=== PATIENT | female | born 1945 | race Caucasian/White ===

== ENCOUNTER 2017-06-04 16:37 | Emergency (ER) | payer OTHER, BC, MEDICARE ==
[2017-06-04 16:53] VITALS: BP 134/94; PULSE 89; TEMP 98.2; BMI 25.5
[2017-06-04] MEDS ORDERED: RABIES VACCINE (PCEC)/PF 2.5 UNIT/VIAL IM ONE (17:21)
[2017-06-04] MEDS ORDERED: RABIES IMMUNE GLOBULIN 300 UNITS/2 ML VIAL IM ONE (17:21)
[2017-06-04] MEDS ORDERED: RABIES IMMUNE GLOBULIN 300 UNITS/2 ML VIAL ONE (17:24)
[2017-06-04] MEDS ORDERED: DIPHTH,PERTUSS(ACELL),TET 0.5 ML DISP.SYRIN IM ONE (17:25)
--- NOTE | 2017-06-04 17:47 | PDOC ---
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 The pt reports that she did not see the bat after that. She denies having any bites or seeing any droppings. Pt does not recall when her last tetanus was. The patient denies having any injuries or symptoms at this time. <Josy Askew - Last Filed: 06/04/17 19:45> - General Chief Complaint: Revisit,Rabies Injection Stated Complaint: POSSIBLE EXPOSURE TO A BAT IN HER HOME OFFICE Time Seen by Provider: 06/04/17 16:53 Past History - Past Medical History COPD: No GI Disorders: Yes (ACID REFLUX, GALLSTONES) Other medical history: VERTIGO - Surgical History Cholecystectomy: Yes - Immunization History Immunization Up to Date: No - Suicide/Smoking/Psychosocial Hx Smoking History: Never smoked Have you smoked in the past 12 months: No Number of Cigarettes Smoked Daily: 0 Information on smoking cessation initiated: No Hx Alcohol Use: No Drug/Substance Use Hx: No Substance Use Type: None <Rosemary Watson - Last Filed: 06/04/17 17:21> <Josy Askew - Last Filed: 06/04/17 19:45> - Past Medical History Allergies/Adverse Reactions: Allergies Allergy/AdvReac Type Severity Reaction Status Date / Time ciprofloxacin [From Cipro] Allergy Severe Difficulty Verified 06/04/17 16:39 Breathing ciprofloxacin HCl Allergy Severe Difficulty Verified 06/04/17 16:40 [From Cipro] Breathing codeine Allergy Severe Difficulty Verified 06/04/17 16:40 Breathing metronidazole [From Flagyl] Allergy Severe Difficulty Verified 06/04/17 16:40 Breathing Sulfa (Sulfonamide Allergy Severe Difficulty Verified 06/04/17 16:40 Antibiotics) Breathing sulfamethoxazole Allergy Severe Difficulty Verified 06/04/17 16:41 [From Septra] Breathing trimethoprim [From Septra] Allergy Severe Difficulty Verified 06/04/17 16:41 Breathing Home Medications: Ambulatory Orders Esomeprazole Magnesium [Nexium 24Hr] 40 mg PO DAILY 01/18/16 Ibuprofen [Motrin -] 600 mg PO TID PRN #12 tablet 03/17/16 Review of Systems - Review of Systems Able to Perform ROS?: Yes Constitutional: No: Symptoms Reported, See HPI, Chills, Diaphoresis, Fever, Loss of Appetite, Malaise, Night Sweats, Weakness, Weight Stable, Unintentional Wgt. Loss, Unexplained wgt Loss, Other HEENTM: No: Symptoms Reported, See HPI, Eye Pain, Blurred Vision, Tearing, Recent change in vision, Double Vision, Cataracts, Ear Pain, Ocular Prothesis, Ear Discharge, Nose Pain, Nose Congestion, Tinnitus, Nose Bleeding, Hearing Loss , Throat Pain, Throat Swelling, Mouth Pain, Dental Problems, Difficulty Swallowing, Mouth Swelling, Other Respiratory: No: Symptoms reported, See HPI, Cough, Orthopnea, Shortness of Breath, SOB with Exertion, SOB at Rest, Stridor, Wheezing, Productive cough, Hemoptysis, Other Cardiac (ROS): No: Symptoms Reported, See HPI, Chest Pain, Edema, Irregular Heart Rate, Lightheadedness, Palpitations, Syncope, Chest Tightness, Other ABD/GI: No: Symptoms Reported, See HPI, Abdominal Distended, Abd. Pain w/ defecation, Blood Streaked Bowels, Constipated, Diarrhea, Difficulty Swallowing , Nausea, Poor Appetite, Poor Fluid Intake, Rectal Bleeding, Vomiting, Indigestion, Abdominal cramping, Tarry Stools, Other : No: Symptoms Reported, See HPI, Burning, Dysuria, Discharge, Frequency, Flank Pain, Hematuria, Incontinence, Pain, Urgency, Testicular Mass, Testicular Swelling, Lesions, Testicular Pain, Other Musculoskeletal: No: Symptoms Reported, See HPI, Back Pain, Gout, Joint Pain, Joint Swelling, Muscle Pain, Muscle Weakness, Neck Pain, Joint Stiffness, Other Integumentary: No: Symptoms Reported, See HPI, Bruising, Change in Color, Change in Hair/Nails, Dryness, Erythema, Flushing, Lesions, Lumps, Pallor, Pruritus, Rash, Sweating, Other Neurological: No: Symptoms reported, See HPI, Headache, Numbness, Paresthesia, Pre-Existing Deficit, Seizure, Tingling, Tremors, Weakness, Unsteady Gait, Ataxia, Dizziness, Other <Josy Askew - Last Filed: 06/04/17 19:45> *Physical Exam - Vital Signs Last Vital Signs Temp Pulse Resp BP Pulse Ox 98.2 F 89 16 134/94 100 06/04/17 16:39 06/04/17 16:39 06/04/17 16:39 06/04/17 16:39 06/04/17 16:39 <Rosemary Watson S - Last Filed: 06/04/17 17:21> - Vital Signs Last Vital Signs Temp Pulse Resp BP Pulse Ox 98.2 F 89 16 134/94 100 06/04/17 16:39 06/04/17 16:39 06/04/17 16:39 06/04/17 16:39 06/04/17 16:39 - Physical Exam General Appearance: Yes: Nourished, Appropriately Dressed HEENT: positive: Normal ENT Inspection Respiratory/Chest: positive: Lungs Clear, Normal Breath Sounds Cardiovascular: positive: Regular Rhythm, Regular Rate Gastrointestinal/Abdominal: positive: Normal Bowel Sounds, Soft Musculoskeletal: positive: Normal Inspection Extremity: positive: Normal Inspection Integumentary: positive: Normal Color, Dry, Warm Neurologic: positive: Fully Oriented, Alert <Josy Askew - Last Filed: 06/04/17 19:45> ED Treatment Course - Medications Given in the ED: ED Medications Discontinued Medications Generic Name Dose Route Start Last Admin Trade Name Freq PRN Reason Stop Dose Admin Diphtheria/Tetanus/Acell Pertussis 0.5 ml 06/04/17 17:25 06/04/17 17:57 Boostrix - IM 06/04/17 17:26 0.5 ml .ONCE ONE Administration Rabies Immune Globulin 7.8 ml 06/04/17 17:21 06/04/17 17:51 Hyperrab S/D - 0.1333 ml/kg (7.8 ml) 06/04/17 17:22 7.8 ml IM Administration ONCE ONE Protocol Rabies Vaccine 2.5 unit 06/04/17 17:21 06/04/17 17:48 Rabavert Rabies Vaccine IM 06/04/17 17:22 2.5 unit .ONCE ONE Administration <Josy Askew - Last Filed: 06/04/17 19:45> *DC/Admit/Observation/Transfer - Discharge Dispostion Admit: No <Rosemary Watson - Last Filed: 06/04/17 17:21> - Attestations Scribe Attestion: 06/04/17 18:02 Documentation prepared by Josy Askew, acting as senior medical writer for Rosemary Watosn MD. <Josy Askew - Last Filed: 06/04/17 19:45> Diagnosis at time of Disposition: Need for post exposure prophylaxis for rabies, Vaccine for diphtheria-tetanus- pertussis, combined - Discharge Dispostion Disposition: HOME Condition at time of disposition: Stable - Patient Instructions Printed Discharge Instructions: DI for Rabies Vaccine Additional Instructions: Follow up dates May: , , , June 12 Return to ER for the above booster daes
== END 2017-06-04 18:00 | disposition home or self-care (01) ==
LOC: FER 16:37
PROC: 3E0234Z Introduction of Serum, Toxoid and Vaccine into Muscle, Percutaneous Approach (ICD-10-PCS; principal; 2017-06-04)
DX: Z23 Encounter for immunization (principal); Z20.3 Contact with and (suspected) exposure to rabies; K58.9 Irritable bowel syndrome, unspecified; K21.9 Gastro-esophageal reflux disease without esophagitis; E07.9 Disorder of thyroid, unspecified; R42 Dizziness and giddiness
CPT/HCPCS: 90375; 90471; 90675; 90715; 99281-25

== ENCOUNTER 2017-06-11 12:30 | Emergency (ER) | payer OTHER, BC, MEDICARE ==
[2017-06-11] MEDS ORDERED: RABIES VACCINE (PCEC)/PF 2.5 UNIT/VIAL IM ONE (12:40)
--- NOTE | 2017-06-11 12:40 | PDOC ---
History of Present Illness - General Chief Complaint: Revisit,Rabies Injection Stated Complaint: RABIES VACCINE Time Seen by Provider: 06/11/17 12:39 History Source: Patient Exam Limitations: No Limitations - History of Present Illness Initial Comments: 06/11/17 13:08 72y F hx of GERD, presents for her 3rd rabies vaccine s/p exposure to a bat 1 week ago. pt also has complaints of increased urinary frequency/urgency and minimal dysuria. deneis any fever/chills, back pain. pt denies any dry mouth/ excisive thrist Past History - Past Medical History Allergies/Adverse Reactions: Allergies Allergy/AdvReac Type Severity Reaction Status Date / Time ciprofloxacin [From Cipro] Allergy Severe Difficulty Verified 06/11/17 12:33 Breathing ciprofloxacin HCl Allergy Severe Difficulty Verified 06/11/17 12:33 [From Cipro] Breathing codeine Allergy Severe Difficulty Verified 06/11/17 12:33 Breathing metronidazole [From Flagyl] Allergy Severe Difficulty Verified 06/11/17 12:33 Breathing Sulfa (Sulfonamide Allergy Severe Difficulty Verified 06/11/17 12:33 Antibiotics) Breathing sulfamethoxazole Allergy Severe Difficulty Verified 06/11/17 12:33 [From Septra] Breathing trimethoprim [From Septra] Allergy Severe Difficulty Verified 06/11/17 12:33 Breathing Home Medications: Ambulatory Orders Esomeprazole Magnesium [Nexium 24Hr] 40 mg PO DAILY 01/18/16 Ibuprofen [Motrin -] 600 mg PO TID PRN #12 tablet 03/17/16 Cephalexin Monohydrate [Keflex -] 500 mg PO Q6H #20 capsule 06/11/17 COPD: No DVT: No GI Disorders: Yes (ACID REFLUX, GALLSTONES) - Surgical History Cholecystectomy: Yes - Immunization History Immunization Up to Date: No - Suicide/Smoking/Psychosocial Hx Smoking History: Never smoked Have you smoked in the past 12 months: No Number of Cigarettes Smoked Daily: 0 Hx Alcohol Use: No Drug/Substance Use Hx: No Substance Use Type: None Review of Systems - Review of Systems Able to Perform ROS?: Yes Comments:: 06/11/17 13:18 Constitutional - no reported Fever, Chills, HEENT: no reported vision changes, sore throat, excessive thirst : + frequency no reported dysuria, discharge Musculskelatal - no reported back pain, joint swelling neurological: no reported headache, numbness, focal weakness, tingling, ataxia, *Physical Exam - Physical Exam Comments: 06/11/17 13:18 GENERAL: The patient is awake, alert, and fully oriented, Nontoxic - in no acute distress. ABDOMEN: Soft, nontender, normoactive bowel sounds. No guarding, no rebound. . No CVA tenderness EXTREMITIES: Normal range of motion, no edema. No clubbing or cyanosis. No cords, erythema, or tenderness. NEUROLOGICAL: No facial assymetry, Normal speech, moving all 4 extremities spontaneously SKIN: Warm, Dry, normal turgor, Medical Decision Making - Medical Decision Making 06/11/17 13:19 will give 3rd rabies vaccine will ck UA to r/o UTI will have pt return in 7 days for 4th and final rabies vaccine *DC/Admit/Observation/Transfer Diagnosis at time of Disposition: Need for post exposure prophylaxis for rabies Urinary tract infection Qualifiers: Urinary tract infection type: acute cystitis Hematuria presence: with hematuria Qualified Code(s): N30.01 - Acute cystitis with hematuria - Discharge Dispostion Disposition: HOME Condition at time of disposition: Improved Admit: No - Prescriptions Prescriptions: Cephalexin Monohydrate [Keflex -] 500 mg PO Q6H #20 capsule - Referrals Referrals: Bart Morrison MD [Staff Physician] - - Patient Instructions Printed Discharge Instructions: DI for Rabies Vaccine Additional Instructions: Return in 7 days for your last rabies vaccine Print Language: FRENCH - Post Discharge Activity
[2017-06-11 12:43] VITALS: BP 118/82; PULSE 80; TEMP 98; BMI 25.2
[2017-06-11 13:48] LABS: URINE APPEARANCE Clear; URINE BILIRUBIN Negative (NEGATIVE); URINE GLUCOSE (UA) Negative (NEGATIVE); URINE KETONE Negative (NEGATIVE); URINE NITRITE Negative (NEGATIVE); URINE PROTEIN Negative (NEGATIVE); URINE UROBILINOGEN 0.2 (0.2-1.0)
[2017-06-11 13:50] LABS: URINE BACTERIA MODERATE /hpf (NEGATIVE); URINE BLOOD Trace-intact (NEGATIVE); URINE COLOR YELLOW; URINE LEUK ESTERASE 1+ (NEGATIVE)
== END 2017-06-11 14:14 | disposition home or self-care (01) ==
LOC: FER 12:30
PROC: 3E0234Z Introduction of Serum, Toxoid and Vaccine into Muscle, Percutaneous Approach (ICD-10-PCS; principal; 2017-06-11)
DX: Z23 Encounter for immunization (principal); Z20.3 Contact with and (suspected) exposure to rabies; R35.0 Frequency of micturition; N30.01 Acute cystitis with hematuria; K21.9 Gastro-esophageal reflux disease without esophagitis; Z88.2 Allergy status to sulfonamides; Z88.5 Allergy status to narcotic agent; Z88.1 Allergy status to other antibiotic agents; Z88.8 Allergy status to other drugs, medicaments and biological substances; Z87.19 Personal history of other diseases of the digestive system
CPT/HCPCS: 81003; 81015; 90675; 99281-25

== ENCOUNTER 2017-06-18 12:21 | Emergency (ER) | payer OTHER, BC, MEDICARE ==
[2017-06-18 12:32] VITALS: BP 136/89; PULSE 81; TEMP 98; BMI 25.0
[2017-06-18] MEDS ORDERED: RABIES VACCINE (PCEC)/PF 2.5 UNIT/VIAL IM ONE (12:37)
--- NOTE | 2017-06-18 13:10 | PDOC ---
History of Present Illness - General Chief Complaint: Lightheaded Stated Complaint: dizziness,elevated BP,rabies vaccine 4 th dose. Time Seen by Provider: 06/18/17 12:35 History Source: Patient Exam Limitations: No Limitations - History of Present Illness Initial Comments: 06/18/17 13:05 9-year-old female here today for her fourth rabies vaccination. Patient states she awoke with a bat in the room which prompt series. Also complains of feeling lightheaded recently. States she has been taking a lot of ibuprofen for generalized body aches as well as bilateral wrist pain. So she is a history of vertigo but denies any recent vertigo had noted that her blood pressure was mildly elevated the last 2 days. 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 Orourke. No fevers chills nausea vomiting or other complaints Past History - Past Medical History Allergies/Adverse Reactions: Allergies Allergy/AdvReac Type Severity Reaction Status Date / Time ciprofloxacin [From Cipro] Allergy Severe Difficulty Verified 06/18/17 12:29 Breathing ciprofloxacin HCl Allergy Severe Difficulty Verified 06/18/17 12:29 [From Cipro] Breathing codeine Allergy Severe Difficulty Verified 06/18/17 12:29 Breathing metronidazole [From Flagyl] Allergy Severe Difficulty Verified 06/18/17 12:29 Breathing Sulfa (Sulfonamide Allergy Severe Difficulty Verified 06/18/17 12:29 Antibiotics) Breathing sulfamethoxazole Allergy Severe Difficulty Verified 06/18/17 12:29 [From Septra] Breathing trimethoprim [From Septra] Allergy Severe Difficulty Verified 06/18/17 12:29 Breathing Home Medications: Ambulatory Orders Esomeprazole Magnesium [Nexium 24Hr] 40 mg PO DAILY 01/18/16 Ibuprofen [Motrin -] 600 mg PO TID PRN #12 tablet 03/17/16 Cephalexin Monohydrate [Keflex -] 500 mg PO Q6H #20 capsule 06/11/17 COPD: No DVT: No GI Disorders: Yes (ACID REFLUX, GALLSTONES) - Surgical History Cholecystectomy: Yes - Immunization History Immunization Up to Date: No - Suicide/Smoking/Psychosocial Hx Smoking History: Never smoked Have you smoked in the past 12 months: No Number of Cigarettes Smoked Daily: 0 Hx Alcohol Use: No Drug/Substance Use Hx: No Substance Use Type: None Review of Systems - Review of Systems Constitutional: No: Chills, Diaphoresis, Fever Respiratory: No: Cough, Orthopnea Cardiac (ROS): No: Chest Pain, Edema ABD/GI: No: Abdominal Distended Musculoskeletal: Yes: Other (wrist pain). No: Back Pain, Gout Integumentary: No: Bruising, Change in Color Neurological: Yes: Other (lightheaded). No: Headache All Other Systems: Reviewed and Negative *Physical Exam - Vital Signs Last Vital Signs Temp Pulse Resp BP Pulse Ox 98 F 81 18 136/89 99 06/18/17 12:22 06/18/17 12:22 06/18/17 12:22 06/18/17 12:22 06/18/17 12:22 - Physical Exam Comments: 06/18/17 13:07 Awake alert no acute distress. Lungs are clear bilaterally. Heart is regular without any murmurs rubs or gallops. Abdomen is soft and nontender. Extremities warm well perfused no edema. Neuro alert and oriented 3. Skin warm dry no rash Medical Decision Making - Medical Decision Making 06/18/17 13:08 72-year-old female with a history of recent bat exposure on rabies vaccination here for fourth shot. Also complaining of feeling mildly lightheaded with an elevated blood pressure of 135/60. No other current complaints patient is very anxious during her discussion. Plan EKG, will repeat patient's blood pressure. Will likely require outpatient follow-up with her primary doctor or her on air announcer. Plan to give her her fourth rabies vaccination and discharge home 06/18/17 13:09 *DC/Admit/Observation/Transfer Diagnosis at time of Disposition: Exposure to rabies - Discharge Dispostion Disposition: HOME Condition at time of disposition: Improved Admit: No - Referrals - Patient Instructions Printed Discharge Instructions: Rabies Vaccine Additional Instructions: He should follow-up with her primary care doctor to discuss her blood pressure. Or your on air announcer. Return for any chest pain, shortness of breath, or any concerns. Your giving her fourth rabies vaccination today.According to the most recent your guidelines you do not need any further vaccination for rabies as 4 doses should be sufficient - Post Discharge Activity
--- NOTE | 2017-06-19 14:02 | EKG ---
Test Reason : Blood Pressure : / mmHG Vent. Rate : 074 BPM Atrial Rate : 074 BPM P-R Int : 154 ms QRS Dur : 092 ms QT Int : 376 ms P-R-T Axes : 044 004 032 degrees QTc Int : 417 ms NORMAL SINUS RHYTHM NORMAL ECG NO PREVIOUS ECGS AVAILABLE Confirmed by OSBALDO HUTSON MD ([id number]) on 06/19/2017 2:02:27 PM Referred By: RADHA Confirmed By:OSBALDO HUTSON MD
== END 2017-06-18 13:23 | disposition home or self-care (01) ==
LOC: FER 12:21
PROC: 3E0234Z Introduction of Serum, Toxoid and Vaccine into Muscle, Percutaneous Approach (ICD-10-PCS; principal; 2017-06-18)
DX: Z20.3 Contact with and (suspected) exposure to rabies (principal); K21.9 Gastro-esophageal reflux disease without esophagitis
CPT/HCPCS: 90471; 90675; 93005; 99282-25

== ENCOUNTER 2017-07-19 06:24 | Emergency (ER) | payer OTHER, BC, MEDICARE ==
[2017-07-19 06:50] VITALS: BP 127/87; PULSE 86; TEMP 97.9; BMI 24.4
--- NOTE | 2017-07-19 07:14 | PDOC ---
History of Present Illness - General Chief Complaint: Pain, Acute Stated Complaint: TRIGEMINAL PAIN Time Seen by Provider: 07/19/17 07:13 - History of Present Illness Initial Comments: 07/19/17 07:32 Chief complaint: Facial pain History of present illness: Patient complains of an exacerbation of her trigeminal neuralgia with left facial pain, sharp, lancinating, since last night. Accompanying nausea, no vomiting. These are her usual symptoms. She had surgery 3 years ago for removal of a "cyst" in her jaw, which is thought to be responsible for her chronic pain. Pain management physician was consulted, and was treating the patient, but she is no longer under his care. Under regular care by a neurologist. Review of systems: No fever/chills, URI symptoms, sore throat, cough, chest pain , shortness of breath, abdominal pain, vomiting, diarrhea, urinary tract symptoms, vaginal bleeding or discharge, visual or focal neurologic symptoms other than as noted above, no unsteadiness of gait. Past medical history: As noted in the medical record. Stable Family/social history reviewed and noncontributory Physical exam: Alert and oriented 3, well-developed well-nourished, no acute distress, cheerful and cooperative. The patient does not appear to be in pain, is lying comfortably, and there are no wincing or sudden movements of the head or neck consistent with intermittent pain Afebrile, vital signs stable PERRLA, fundi benign, ENT clear. There is tenderness over the left cheek, mild, but no erythema, induration, swelling, or deformity. Neck supple without bruit mass or nodes Chest clear CV regular without murmur or gallop Abdomen benign Neurological C2 to 12 intact. No focal sensory or motor deficits. Gait stable and unimpaired Impression: Exacerbation of chronic trigeminal neuralgia, usual symptoms, response to Toradol and Zofran. Plan: Initial treatment and observation. Follow-up with neurologist. Past History - Past Medical History Allergies/Adverse Reactions: Allergies Allergy/AdvReac Type Severity Reaction Status Date / Time ciprofloxacin [From Cipro] Allergy Severe Difficulty Verified 06/18/17 12:29 Breathing ciprofloxacin HCl Allergy Severe Difficulty Verified 06/18/17 12:29 [From Cipro] Breathing codeine Allergy Severe Difficulty Verified 06/18/17 12:29 Breathing metronidazole [From Flagyl] Allergy Severe Difficulty Verified 06/18/17 12:29 Breathing Sulfa (Sulfonamide Allergy Severe Difficulty Verified 06/18/17 12:29 Antibiotics) Breathing sulfamethoxazole Allergy Severe Difficulty Verified 06/18/17 12:29 [From Marra] Breathing trimethoprim [From Marra] Allergy Severe Difficulty Verified 06/18/17 12:29 Breathing Home Medications: Ambulatory Orders Esomeprazole Magnesium [Nexium 24Hr] 40 mg PO DAILY 01/18/16 Ondansetron [Zofran Odt -] 4 mg SL TID PRN #12 od.tablet 07/19/17 COPD: No DVT: No GI Disorders: Yes (ACID REFLUX, GALLSTONES) Other medical history: TRIGEMINAL NEURALGIA - Surgical History Cholecystectomy: Yes - Immunization History Immunization Up to Date: No - Suicide/Smoking/Psychosocial Hx Smoking History: Never smoked Have you smoked in the past 12 months: No Number of Cigarettes Smoked Daily: 0 Hx Alcohol Use: No Drug/Substance Use Hx: No Substance Use Type: None *Physical Exam - Vital Signs Last Vital Signs Temp Pulse Resp BP Pulse Ox 97.9 F 86 16 127/87 100 07/19/17 06:44 07/19/17 06:44 07/19/17 06:44 07/19/17 06:44 07/19/17 06:44 Medical Decision Making - Medical Decision Making 07/19/17 08:04 Patient's neurological status remained stable. Pain resolving. Nausea resolved. Fully ambulatory and in no distress pain or otherwise upon discharge to follow- up as needed. *DC/Admit/Observation/Transfer Diagnosis at time of Disposition: Trigeminal neuralgia of left side of face - Discharge Dispostion Disposition: HOME Condition at time of disposition: Improved Admit: No - Prescriptions Prescriptions: Ondansetron [Zofran Odt -] 4 mg SL TID PRN #12 od.tablet PRN Reason: Nausea And/Or Vomiting - Referrals Referrals: Marcell Avila [Primary Care Provider] - - Patient Instructions Printed Discharge Instructions: DI for Trigeminal Neuralgia - Post Discharge Activity
[2017-07-19] MEDS ORDERED: KETOROLAC TROMETHAMINE 60 MG/2 ML VIAL IM ONE (07:31)
[2017-07-19] MEDS ORDERED: ONDANSETRON *ODT* 4 MG TABLET SL ONE ×2 (07:31→07:32)
[2017-07-19] MEDS ORDERED: KETOROLAC TROMETHAMINE 30 MG/1 ML VIAL ONE (07:33)
[2017-07-19] MEDS ORDERED: ONDANSETRON *ODT* 4 MG TABLET ONE (07:33)
== END 2017-07-19 08:10 | disposition home or self-care (01) ==
LOC: FER 06:24
PROC: 3E0233Z Introduction of Anti-inflammatory into Muscle, Percutaneous Approach (ICD-10-PCS; principal; 2017-07-19)
DX: G50.0 Trigeminal neuralgia (principal); K21.9 Gastro-esophageal reflux disease without esophagitis
CPT/HCPCS: 96372; 99281-25

== ENCOUNTER 2017-09-18 12:20 | Emergency (ER) | payer OTHER, BC, MEDICARE ==
[2017-09-18 12:24] VITALS: BMI 22.4
--- NOTE | 2017-09-18 12:31 | PDOC ---
History of Present Illness - General Chief Complaint: Migraine Headache Stated Complaint: MIGRIANE Time Seen by Provider: 09/18/17 12:23 - History of Present Illness Initial Comments: 09/18/17 12:42 Chief complaint: Trigeminal neuralgia History of present illness: Patient states that she has trigeminal neuralgia, which flared up after dental procedure recently. She was given Toradol yesterday at an urgent care center, but is afraid of taking more Toradol. Her neurologist is moved to [facility], and she is in the process of finding a new neurologist. Most recent CT and MRI was one year ago, showing no abnormalities. Review of systems: No fever/chills, headache, sore throat, URI symptoms, chest pain, shortness of breath, abdominal pain, nausea, vomiting, diarrhea, visual or focal neurologic symptoms, unsteadiness of gait. No hearing problems including decreased hearing, tinnitus, or ear pain. Remainder systems reviewed and found to be negative Past medical history: Patient described a "cyst" in her jaw in 2012, which was surgically removed, but which resulted in her trigeminal ALLERGY symptoms. She has been intolerant to all medications prescribed by [facility] including gabapentin, Lyrica, and Tegretol. Social/family history reviewed and noncontributory Physical exam: Alert oriented 3 well-developed well-nourished no acute distress cheerful and cooperative Afebrile, vital signs normal HEENT clear PERRLA, fundi benign. Neurological C2 to 12 intact. No focal sensory or motor deficits. Strength full and symmetric. Gait stable and unimpaired Neck supple without bruit mass or nodes. No tenderness or deformity. Full range of motion without pain Chest clear CV regular without murmur rub or gallop Abdomen benign Extremities no CCE Skin clear, no rash, adequate turgor and wet mucous membranes Impression: Recurrent trigeminal neuralgia. Intolerant to maintenance medications. No neurologic deficits. Plan: Analgesics, referral to new neurologist SERGE for further evaluation, treatment, and medication recommendations. Rest and relaxation techniques. Avoid stress and other triggering factors. Past History - Past Medical History Allergies/Adverse Reactions: Allergies Allergy/AdvReac Type Severity Reaction Status Date / Time ciprofloxacin [From Cipro] Allergy Severe Difficulty Verified 09/18/17 12:21 Breathing ciprofloxacin HCl Allergy Severe Difficulty Verified 09/18/17 12:21 [From Cipro] Breathing codeine Allergy Severe Difficulty Verified 09/18/17 12:21 Breathing metronidazole [From Flagyl] Allergy Severe Difficulty Verified 09/18/17 12:21 Breathing Sulfa (Sulfonamide Allergy Severe Difficulty Verified 09/18/17 12:21 Antibiotics) Breathing sulfamethoxazole Allergy Severe Difficulty Verified 09/18/17 12:21 [From Septra] Breathing trimethoprim [From Septra] Allergy Severe Difficulty Verified 09/18/17 12:21 Breathing Home Medications: Ambulatory Orders Esomeprazole Magnesium [Nexium 24Hr] 40 mg PO DAILY 01/18/16 COPD: No DVT: No GI Disorders: Yes (ACID REFLUX, GALLSTONES) Other medical history: MIGRIANES - Surgical History Cholecystectomy: Yes - Immunization History Immunization Up to Date: No - Suicide/Smoking/Psychosocial Hx Smoking History: Never smoked Have you smoked in the past 12 months: No Number of Cigarettes Smoked Daily: 0 Hx Alcohol Use: No Drug/Substance Use Hx: No Substance Use Type: None *Physical Exam - Vital Signs Last Vital Signs Temp Pulse Resp BP Pulse Ox 0/0 09/18/17 12:21 Medical Decision Making - Medical Decision Making 09/18/17 13:54 Improved. No residual severe pain. Will continue Motrin at home and follow-up with recommended neurologist as directed. Fully ambulatory and in no distress upon discharge with *DC/Admit/Observation/Transfer Diagnosis at time of Disposition: Trigeminal neuralgia of left side of face - Discharge Dispostion Disposition: HOME Condition at time of disposition: Improved Admit: No - Referrals Referrals: Fredy Zimmerman DO [Staff Physician] - 1 week - Patient Instructions Printed Discharge Instructions: DI for Trigeminal Neuralgia - Post Discharge Activity
[2017-09-18] MEDS ORDERED: ACETAMINOPHEN 1000 MG/100 ML VIAL (NON FORMULARY) IVPB ONE (12:33)
[2017-09-18 12:37] VITALS: BP 125/74; PULSE 88; TEMP 98.5
[2017-09-18] MEDS ORDERED: ACETAMINOPHEN INJECTION 100 ML IVPB ONE (12:38)
[2017-09-18] MEDS ORDERED: ONDANSETRON 4 MG/2 ML VIAL ONE (13:19)
[2017-09-18] MEDS ORDERED: ONDANSETRON 4 MG/2 ML VIAL IVPB ONE (13:35)
== END 2017-09-18 14:00 | disposition home or self-care (01) ==
LOC: FER 12:20
PROC: 3E033NZ Introduction of Analgesics, Hypnotics, Sedatives into Peripheral Vein, Percutaneous Approach (ICD-10-PCS; principal; 2017-09-18)
PROC: 3E033GC Introduction of Other Therapeutic Substance into Peripheral Vein, Percutaneous Approach (ICD-10-PCS; 2017-09-18)
DX: G50.0 Trigeminal neuralgia (principal); K21.9 Gastro-esophageal reflux disease without esophagitis
CPT/HCPCS: 96374; 96375; 99282-25

== ENCOUNTER 2018-03-17 12:07 | Emergency (ER) | payer OTHER, BC, MEDICARE ==
--- NOTE | 2018-03-17 12:28 | PDOC ---
Attending Attestation - Resident Resident Name: Huong Muro - ED Attending Attestation I have performed the following: I have examined & evaluated the patient, The case was reviewed & discussed with the resident, I agree w/resident's findings & plan, Exceptions are as noted
[2018-03-17 12:37] VITALS: BP 124/82; PULSE 82; TEMP 98.2; BMI 23.1
[2018-03-17] MEDS ORDERED: KETOROLAC TROMETHAMINE 60 MG/2 ML VIAL IM ONE (13:20)
[2018-03-17] MEDS ORDERED: traMADol HCL 50 MG TABLET PO ONE (13:21)
[2018-03-17] MEDS ORDERED: ONDANSETRON *ODT* 4 MG TABLET SL ONE (13:21)
--- NOTE | 2018-03-17 13:22 | PDOC ---
History of Present Illness - General Chief Complaint: Pain Stated Complaint: LEFT FACE PAIN Time Seen by Provider: 03/17/18 13:20 - History of Present Illness Initial Comments: 03/17/18 15:06 Chief complaint: Flareup of trigeminal neuralgia History of present illness: Patient with frequent flareups of trigeminal neuralgia, unresponsive to medication today. Took ibuprofen at home and received 30 mg of Toradol IM at urgent care before coming to the ER. In the past she has had aggravation of her symptoms, primarily because of increased stress, and has had increased stress due to her work for the last 2 days. Review of systems: Denies fever/chills, URI symptoms, sore throat, cough, chest pain, shortness of breath, abdominal pain, nausea, vomiting, diarrhea, visual or focal neurologic symptoms, unsteadiness of gait Past medical history: Trigeminal neuralgia, irritable bowel, GERD. Undergoing treatment for H. pylori with amoxicillin. ALLERGIC to multiple medications including ciprofloxacin, codeine, metronidazole, sulfonamides, and trimethoprim. Despite being ALLERGIC to codeine, she has taken tramadol in the past with no reaction and it has been effective for pain Social/family history reviewed and noncontributory Physical exam: Alert and oriented well-developed well-nourished no acute distress despite her complaints. Cheerful and cooperative Afebrile, vital signs normal Head atraumatic. PERRLA 4 mm, fundi benign with sharp disc margins and good central venous pulsations. ENT clear. No tick or unusual facial movements Neck supple without bruit mass or nodes Chest clear CV regular without murmur rub or gallop Abdomen benign Neurological C2 to 12 intact. Strength full and symmetric. No focal sensory or motor deficits. Gait stable and unimpaired Impression: Exacerbation of trigeminal neuralgia, anxiety Plan: Symptomatic treatment, reevaluation, and follow-up if improved. Past History - Past Medical History Allergies/Adverse Reactions: Allergies Allergy/AdvReac Type Severity Reaction Status Date / Time ciprofloxacin [From Cipro] Allergy Severe Difficulty Verified 02/02/18 07:11 Breathing ciprofloxacin HCl Allergy Severe Difficulty Verified 02/02/18 07:11 [From Cipro] Breathing codeine Allergy Severe Difficulty Verified 02/02/18 07:11 Breathing metronidazole [From Flagyl] Allergy Severe Difficulty Verified 02/02/18 07:11 Breathing Sulfa (Sulfonamide Allergy Severe Difficulty Verified 02/02/18 07:11 Antibiotics) Breathing sulfamethoxazole Allergy Severe Difficulty Verified 02/02/18 07:11 [From Marra] Breathing trimethoprim [From ] Allergy Severe Difficulty Verified 02/02/18 07:11 Breathing Home Medications: Ambulatory Orders Esomeprazole Magnesium [Nexium 24Hr] 40 mg PO DAILY 01/18/16 Amoxicillin - [Amoxicillin 500mg Capsule -] 1,000 mg PO BID 03/17/18 Bacillus Coagulans/Inulin [Probiotic Formula Capsule] 1 each PO DAILY 03/17/18 Bismuth Subsalicylate [Pepto-Bismol -] 524 mg PO TID 03/17/18 Ibuprofen 400 mg PO TID PRN 03/17/18 Ondansetron [Zofran Odt -] 4 mg SL TID PRN #10 od.tablet 03/17/18 Tramadol HCl 50 mg PO QID PRN #15 tablet MDD 4 03/17/18 COPD: No DVT: No GI Disorders: Yes (ACID REFLUX, GALLSTONES, H. PYLORI) Other medical history: TRIGEMINAL NEURALGIA - Surgical History Cholecystectomy: Yes - Immunization History Immunization Up to Date: No - Suicide/Smoking/Psychosocial Hx Smoking History: Never smoked Have you smoked in the past 12 months: No Number of Cigarettes Smoked Daily: 0 Hx Alcohol Use: No Drug/Substance Use Hx: No Substance Use Type: None *Physical Exam - Vital Signs Last Vital Signs Temp Pulse Resp BP Pulse Ox 98.2 F 82 16 124/82 98 03/17/18 12:08 03/17/18 12:08 03/17/18 12:08 03/17/18 12:08 03/17/18 12:08 Medical Decision Making - Medical Decision Making 03/17/18 15:11 Patient is much improved with recurrent medication. Neurological exam remains intact. Discharged in no significant pain or other distress with to follow-up as needed. *DC/Admit/Observation/Transfer Diagnosis at time of Disposition: Trigeminal neuralgia of left side of face - Discharge Dispostion Disposition: HOME Condition at time of disposition: Improved Decision to Admit order: No - Prescriptions Prescriptions: Ondansetron [Zofran Odt -] 4 mg SL TID PRN #10 od.tablet PRN Reason: Nausea Tramadol HCl 50 mg PO QID PRN #15 tablet MDD 4 PRN Reason: Pain - Referrals Referrals: Marcell Avila [Primary Care Provider] - 2 Days - Patient Instructions Printed Discharge Instructions: DI for Trigeminal Neuralgia - Post Discharge Activity
[2018-03-17] MEDS ORDERED: traMADol HCL 50 MG TABLET ONE (13:24)
[2018-03-17] MEDS ORDERED: KETOROLAC TROMETHAMINE 30 MG/1 ML VIAL ONE (13:24)
[2018-03-17] MEDS ORDERED: ONDANSETRON *ODT* 4 MG TABLET ONE (13:25)
--- NOTE | 2018-03-18 06:35 | PDOC ---
*Physical Exam - Vital Signs Last Vital Signs Temp Pulse Resp BP Pulse Ox 98.2 F 82 16 124/82 98 03/17/18 12:08 03/17/18 12:08 03/17/18 12:08 03/17/18 12:08 03/17/18 12:08 ED Treatment Course - Medications Given in the ED: ED Medications Discontinued Medications Generic Name Dose Route Start Last Admin Trade Name Freq PRN Reason Stop Dose Admin Ketorolac Tromethamine 30 mg 03/17/18 13:20 03/17/18 13:30 Toradol Injection - IM 03/17/18 13:21 30 mg ONCE ONE Administration Ondansetron HCl 4 mg 03/17/18 13:21 03/17/18 13:30 Zofran Odt - SL 03/17/18 13:22 4 mg ONCE ONE Administration Tramadol HCl 50 mg 03/17/18 13:21 03/17/18 13:30 Ultram - PO 03/17/18 13:22 50 mg ONCE ONE Administration Medical Decision Making - Medical Decision Making 03/18/18 06:34 Pt called to request medication for nausea, so I ordered some zofran ODT for her 4mg BID. *DC/Admit/Observation/Transfer Diagnosis at time of Disposition: Trigeminal neuralgia of left side of face - Discharge Dispostion Disposition: HOME Condition at time of disposition: Improved - Prescriptions Prescriptions: Ondansetron [Zofran Odt -] 4 mg SL TID PRN #10 od.tablet PRN Reason: Nausea Ondansetron [Zofran Odt -] 4 mg SL BID #14 od.tablet Tramadol HCl 50 mg PO QID PRN #15 tablet MDD 4 PRN Reason: Pain - Referrals Referrals: Marcell Avila [Primary Care Provider] - 2 Days - Patient Instructions Printed Discharge Instructions: DI for Trigeminal Neuralgia - Post Discharge Activity
== END 2018-03-17 14:48 | disposition home or self-care (01) ==
LOC: FER 12:07
PROC: 3E0233Z Introduction of Anti-inflammatory into Muscle, Percutaneous Approach (ICD-10-PCS; principal; 2018-03-17)
DX: G50.0 Trigeminal neuralgia (principal); K21.9 Gastro-esophageal reflux disease without esophagitis
CPT/HCPCS: 96372; 99281-25; Q0162

== ENCOUNTER 2018-04-29 06:07 | Emergency (ER) | payer OTHER, BC, MEDICARE ==
[2018-04-29 06:17] VITALS: BP 135/87; PULSE 82; TEMP 97.9; BMI 24.4
[2018-04-29] MEDS ORDERED: KETOROLAC TROMETHAMINE 60 MG/2 ML VIAL IM ONE (06:27)
[2018-04-29] MEDS ORDERED: KETOROLAC TROMETHAMINE 60 MG/2 ML VIAL ONE (06:28)
--- NOTE | 2018-04-29 06:33 | PDOC ---
History of Present Illness - General Chief Complaint: Pain, Acute Stated Complaint: FACIAL PAIN Time Seen by Provider: 04/29/18 06:13 - History of Present Illness Initial Comments: 04/29/18 06:33 recurrent post-operative pain usually responds to ketorolac usually gets pain 2x/ month L face Timing/Duration: 4-6 hours Severity: moderate Modifying Factors: worse with: medication Associated Symptoms: denies: fever/chills Past History - Past Medical History Allergies/Adverse Reactions: Allergies Allergy/AdvReac Type Severity Reaction Status Date / Time ciprofloxacin [From Cipro] Allergy Severe Difficulty Verified 02/02/18 07:11 Breathing ciprofloxacin HCl Allergy Severe Difficulty Verified 02/02/18 07:11 [From Cipro] Breathing codeine Allergy Severe Difficulty Verified 02/02/18 07:11 Breathing metronidazole [From Flagyl] Allergy Severe Difficulty Verified 02/02/18 07:11 Breathing Sulfa (Sulfonamide Allergy Severe Difficulty Verified 02/02/18 07:11 Antibiotics) Breathing sulfamethoxazole Allergy Severe Difficulty Verified 02/02/18 07:11 [From Septra] Breathing trimethoprim [From Septra] Allergy Severe Difficulty Verified 02/02/18 07:11 Breathing Home Medications: Ambulatory Orders Esomeprazole Magnesium [Nexium 24Hr] 40 mg PO DAILY 01/18/16 Ibuprofen 400 mg PO TID PRN 03/17/18 COPD: No DVT: No GI Disorders: Yes (ACID REFLUX, GALLSTONES, H. PYLORI) Other medical history: TRIGEMINAL NEURALGIA - Surgical History Cholecystectomy: Yes - Immunization History Immunization Up to Date: No - Suicide/Smoking/Psychosocial Hx Smoking History: Never smoked Have you smoked in the past 12 months: No Number of Cigarettes Smoked Daily: 0 Hx Alcohol Use: No Drug/Substance Use Hx: No Substance Use Type: None Review of Systems - Review of Systems All Other Systems: Reviewed and Negative *Physical Exam - Vital Signs Last Vital Signs Temp Pulse Resp BP Pulse Ox 97.9 F 82 16 135/87 99 04/29/18 06:13 04/29/18 06:13 04/29/18 06:13 04/29/18 06:13 04/29/18 06:13 - Physical Exam General Appearance: Yes: Nourished, Appropriately Dressed HEENT: positive: EOMI, MANA, Normal ENT Inspection, Normal Voice. negative: Scleral Icterus (R), Scleral Icterus (L), Muffled/Hoarse voice, Nasal Congestion , Rhinorrhea, Sinus Tenderness, Lesions, Excessive drooling Neck: negative: Tender Respiratory/Chest: negative: Respiratory Distress Integumentary: positive: Normal Color, Dry, Warm Neurologic: positive: Alert, Other (rabbit mouthing) Medical Decision Making - Medical Decision Making 04/29/18 06:35 chronic recurrent post-operative pain refusing infrorbitla nerve block ketorolac PCP fu *DC/Admit/Observation/Transfer Diagnosis at time of Disposition: Chronic pain disorder - Discharge Dispostion Disposition: HOME Condition at time of disposition: Stable - Referrals - Patient Instructions Additional Instructions: Please followup with your primary care provider - Post Discharge Activity
[2018-04-29] MEDS ORDERED: ONDANSETRON *ODT* 4 MG TABLET ONE (06:50)
[2018-04-29] MEDS ORDERED: ONDANSETRON 4 MG TABLET PO ONE (06:51)
== END 2018-04-29 07:03 | disposition home or self-care (01) ==
LOC: FER 06:07
PROC: 3E0233Z Introduction of Anti-inflammatory into Muscle, Percutaneous Approach (ICD-10-PCS; principal; 2018-04-29)
DX: G89.29 Other chronic pain (principal)
CPT/HCPCS: 96372; 99281-25

== ENCOUNTER 2018-04-29 14:10 | Emergency (ER) | payer OTHER, BC, MEDICARE ==
[2018-04-29 14:27] VITALS: BMI 22.8
[2018-04-29 14:31] VITALS: BP 125/83; PULSE 72; TEMP 98.7
[2018-04-29] MEDS ORDERED: traMADol HCL 50 MG TABLET PO ONE (14:31)
[2018-04-29] MEDS ORDERED: ACETAMINOPHEN 500 MG TABLET (FP) PO ONE (14:32)
--- NOTE | 2018-04-29 14:32 | PDOC ---
History of Present Illness - General Chief Complaint: Pain, Acute Stated Complaint: LEFT FACIAL PAIN Time Seen by Provider: 04/29/18 14:19 - History of Present Illness Initial Comments: 04/29/18 14:32 73-year-old female with a history of trigeminal neuralgia, GERD, IBS presents to the emergency department with pain to the left face. Patient reports this is identical to her previous trigeminal neuralgia flares. Patient was seen here in the emergency department earlier today, given IM Toradol with relief. Since then , patient had a cavity filled at the dentist and states this triggered her trigeminal neuralgia to act up again prompting her to come to the emergency department. She states she feels better since initiation of the pain but is still having frequent lacinating pain down the left side of her face. No other treatments tried. She reports Toradol, tramadol, and Tylenol often work for her pain. Denies any new characteristics of pain. Denies headache, visual changes, speech changes, fevers, chills, nausea, vomiting, focal weakness or numbness in any extremities, chest pain, shortness of breath. Past History - Past Medical History Allergies/Adverse Reactions: Allergies Allergy/AdvReac Type Severity Reaction Status Date / Time ciprofloxacin [From Cipro] Allergy Severe Difficulty Verified 04/29/18 14:29 Breathing ciprofloxacin HCl Allergy Severe Difficulty Verified 04/29/18 14:29 [From Cipro] Breathing codeine Allergy Severe Difficulty Verified 04/29/18 14:29 Breathing metronidazole [From Flagyl] Allergy Severe Difficulty Verified 04/29/18 14:29 Breathing Sulfa (Sulfonamide Allergy Severe Difficulty Verified 04/29/18 14:29 Antibiotics) Breathing sulfamethoxazole Allergy Severe Difficulty Verified 04/29/18 14:29 [From Septra] Breathing trimethoprim [From Septra] Allergy Severe Difficulty Verified 04/29/18 14:29 Breathing Home Medications: Ambulatory Orders Esomeprazole Magnesium [Nexium 24Hr] 40 mg PO DAILY 01/18/16 Ibuprofen 400 mg PO TID PRN 03/17/18 COPD: No DVT: No GI Disorders: Yes (ACID REFLUX, GALLSTONES, H. PYLORI) - Surgical History Cholecystectomy: Yes - Immunization History Immunization Up to Date: No - Suicide/Smoking/Psychosocial Hx Smoking History: Never smoked Have you smoked in the past 12 months: No Number of Cigarettes Smoked Daily: 0 Hx Alcohol Use: No Drug/Substance Use Hx: No Substance Use Type: None Review of Systems - Review of Systems Comments:: 04/29/18 14:35 GENERAL/CONSTITUTIONAL: No fever or chills. No weakness. HEAD, EYES, EARS, NOSE AND THROAT: No change in vision. No ear pain or discharge. No sore throat. +L facial pain GASTROINTESTINAL: No nausea, vomiting, diarrhea or constipation. GENITOURINARY: No dysuria, frequency, or change in urination. CARDIOVASCULAR: No chest pain or shortness of breath. RESPIRATORY: No cough, wheezing, or hemoptysis. MUSCULOSKELETAL: No joint or muscle swelling or pain. No neck or back pain. SKIN: No rash NEUROLOGIC: No headache, vertigo, loss of consciousness, or change in strength/ sensation. ENDOCRINE: No increased thirst. No abnormal weight change. HEMATOLOGIC/LYMPHATIC: No anemia, easy bleeding, or history of blood clots. ALLERGIC/IMMUNOLOGIC: No hives or skin allergy. *Physical Exam - Vital Signs Last Vital Signs Temp Pulse Resp BP Pulse Ox 98.7 F 72 18 125/83 100 04/29/18 14:19 04/29/18 14:19 04/29/18 14:19 04/29/18 14:19 04/29/18 14:19 - Physical Exam Comments: 04/29/18 14:38 GENERAL: Awake, alert, and fully oriented, in no acute distress. Pleasant. EYES: PERRLA, EOMI, sclera anicteric, conjunctiva clear ENT: Hearing grossly normal, nares patent, oropharynx clear without exudates. Moist mucosa NECK: Normal ROM, supple, no lymphadenopathy, JVD, or masses LUNGS: Breath sounds equal, clear to auscultation bilaterally. No wheezes, and no crackles HEART: Regular rate and rhythm, normal S1 and S2, no murmurs, rubs or gallops ABDOMEN: Soft, nontender, normoactive bowel sounds. No guarding, no rebound. No masses EXTREMITIES: Normal range of motion, no edema. No cords, erythema, or tenderness NEUROLOGICAL: Normal speech, cranial nerves intact, negative pronator drift, 5/ 5 strength in all 4 extremities, normal sensation to light touch in all 4 extremities, normal cerebellar exam, normal gait, normal reflexes and tone SKIN: Warm, Dry, normal turgor, no rashes or lesions noted. Medical Decision Making - Medical Decision Making 04/29/18 14:38 73yo F hx trigeminal neuralgia presents to the ED with trigeminal neuralgia flare Got toradol 60mg IM earlier today Will give tramadol 50mg and tylenol 1G and reassess Pt in agreement with plan 04/29/18 14:52 Pt c/o of epigastric burning after her lunch salad had tomatoes in it. No ttp. Ordered maalox, will reassess. 04/29/18 16:09 Pt feeling much better. Still mild facial pain but states "I feel human again" No more abd pain after maalox Requests DC I discussed the physical exam findings, ancillary test results and final diagnoses with the patient. I answered all of the patient's questions. The patient was satisfied with the care received and felt comfortable with the discharge plan and treatment plan. The patient will call their primary care physician within 24 hours to arrange follow-up and will return to the Emergency Department with any new, persistent or worsening symptoms. *DC/Admit/Observation/Transfer Diagnosis at time of Disposition: Trigeminal neuralgia of left side of face - Discharge Dispostion Disposition: HOME Condition at time of disposition: Improved Decision to Admit order: No - Referrals - Patient Instructions Printed Discharge Instructions: DI for Trigeminal Neuralgia Additional Instructions: Follow-up with your primary care doctor within 1 week. Take Motrin 600 mg every 8 hours as needed for pain. If your pain is not well controlled with Motrin, take tramadol. Be careful because tramadol can make you drowsy and dizzy. Return to the emergency department if you have any new, worsening or concerning symptoms. - Post Discharge Activity - Attestations Physician Attestion: 04/29/18 16:13 I, Dr. Azra Stevens MD, attest that this document has been prepared under my direction and personally reviewed by me in its entirety. I further attest, that it accurately reflects all work, treatment, procedures and medical decision -making performed by me.
[2018-04-29] MEDS ORDERED: ACETAMINOPHEN 325 MG TABLET (FP) ONE (14:34)
[2018-04-29] MEDS ORDERED: traMADol HCL 50 MG TABLET ONE (14:34)
[2018-04-29] MEDS ORDERED: MAG HYDROX/AL HYDROX/SIMETH 30 ML UNIT-DOSE CUP PO ONE (14:52)
[2018-04-29] MEDS ORDERED: MAG HYDROX/AL HYDROX/SIMETH 30 ML UNIT-DOSE CUP ONE (15:06)
== END 2018-04-29 16:28 | disposition home or self-care (01) ==
LOC: FER 14:18
DX: G50.0 Trigeminal neuralgia (principal); K21.9 Gastro-esophageal reflux disease without esophagitis
CPT/HCPCS: 99281-25

== ENCOUNTER 2018-05-01 17:45 | Emergency (ER) | payer OTHER, BC, MEDICARE ==
[2018-05-01 17:52] VITALS: BP 121/65; PULSE 78; TEMP 97.8; BMI 22.8
[2018-05-01 18:20] LABS: PH,URINE 6.5 (4.5-8); URINE APPEARANCE Clear; URINE BILIRUBIN Negative (NEGATIVE); URINE COLOR Yellow; URINE GLUCOSE (UA) Negative (NEGATIVE); URINE KETONE Negative (NEGATIVE); URINE LEUK ESTERASE 2+ (NEGATIVE); URINE NITRITE Negative (NEGATIVE); URINE PROTEIN Negative (NEGATIVE); URINE UROBILINOGEN 0.2 (0.2-1.0)
[2018-05-01 19:15] LABS: EPI CELLS FEW /HPF; URINE RBC 0-2 /hpf (0-3)
[2018-05-01 19:16] LABS: URINE BACTERIA 1+ /hpf (NEGATIVE)
--- NOTE | 2018-05-01 19:24 | PDOC ---
History of Present Illness - General History Source: Patient Exam Limitations: No Limitations - History of Present Illness Initial Comments: 05/01/18 20:10 The patient is a 73 year old female, with a significant past medical history of IBS, ACID REFLUX, GALLSTONES, H. PYLORI, who presents to the ED complaining of positive urine culture. She notes that she went to urgent care and was had an U/ A performed which was positive. She was advised to come to the ED for further antibiotic treatment due to her allergy history. The patient denies chest pain, shortness of breath, headache and dizziness. Denies fever, chills, nausea, vomiting, diarrhea or constipation. Denies dysuria , frequency, urgency and hematuria. Allergies: Cipro, Codeine, Flagyl, septra, sulfa Past surgical history: Cholecystectomy Social History: No alcohol, tobacco or drug use reported <Antonio Pizarro - Last Filed: 05/01/18 20:10> <Radha Cuevas - Last Filed: 05/02/18 03:36> - General Chief Complaint: Urinary Problem Stated Complaint: URINARY ISSUES Time Seen by Provider: 05/01/18 19:20 Past History <Antonio Pizarro - Last Filed: 05/01/18 20:10> - Past Medical History COPD: No CHF: No DVT: No GI Disorders: Yes (ACID REFLUX, GALLSTONES, H. PYLORI) - Surgical History Cholecystectomy: Yes - Immunization History Immunization Up to Date: No - Suicide/Smoking/Psychosocial Hx Smoking History: Never smoked Have you smoked in the past 12 months: No Number of Cigarettes Smoked Daily: 0 Hx Alcohol Use: No Drug/Substance Use Hx: No Substance Use Type: None <Radha Cuevas - Last Filed: 05/02/18 03:36> - Past Medical History Allergies/Adverse Reactions: Allergies Allergy/AdvReac Type Severity Reaction Status Date / Time ciprofloxacin [From Cipro] Allergy Severe Difficulty Verified 05/01/18 17:46 Breathing ciprofloxacin HCl Allergy Severe Difficulty Verified 05/01/18 17:46 [From Cipro] Breathing codeine Allergy Severe Difficulty Verified 05/01/18 17:46 Breathing metronidazole [From Flagyl] Allergy Severe Difficulty Verified 05/01/18 17:46 Breathing Sulfa (Sulfonamide Allergy Severe Difficulty Verified 05/01/18 17:46 Antibiotics) Breathing sulfamethoxazole Allergy Severe Difficulty Verified 05/01/18 17:46 [From ] Breathing trimethoprim [From ] Allergy Severe Difficulty Verified 05/01/18 17:46 Breathing Home Medications: Ambulatory Orders Esomeprazole Magnesium [Nexium 24Hr] 40 mg PO DAILY 01/18/16 Ibuprofen 400 mg PO TID PRN 03/17/18 traMADol HCL [Ultram -] 50 mg PO Q12H PRN #8 tablet MDD 2 pills 04/29/18 Cefuroxime Axetil [Ceftin -] 250 mg PO BID #14 tablet 05/01/18 Cefuroxime Axetil [Ceftin -] 250 mg PO BID #14 tablet 05/01/18 Review of Systems - Review of Systems Able to Perform ROS?: Yes Comments:: 05/01/18 20:11 GENERAL/CONSTITUTIONAL: No fever or chills. No weakness. HEAD, EYES, EARS, NOSE AND THROAT: No change in vision. No ear pain or discharge. No sore throat. GASTROINTESTINAL: No nausea, vomiting, diarrhea or constipation. GENITOURINARY: No dysuria, frequency, or change in urination. CARDIOVASCULAR: No chest pain or shortness of breath. RESPIRATORY: No cough, wheezing, or hemoptysis. MUSCULOSKELETAL: No joint or muscle swelling or pain. No neck or back pain. SKIN: No rash NEUROLOGIC: No headache, vertigo, loss of consciousness, or change in strength/ sensation. ENDOCRINE: No increased thirst. No abnormal weight change. HEMATOLOGIC/LYMPHATIC: No anemia, easy bleeding, or history of blood clots. ALLERGIC/IMMUNOLOGIC: No hives or skin allergy. <Antonio Pizarro - Last Filed: 05/01/18 20:10> *Physical Exam - Vital Signs Last Vital Signs Temp Pulse Resp BP Pulse Ox 97.8 F 78 16 121/65 100 05/01/18 17:45 05/01/18 17:45 05/01/18 17:45 05/01/18 17:45 05/01/18 17:45 - Physical Exam Comments: 05/01/18 20:11 Constitutional: Awake, alert, oriented. No acute distress. Head: Normocephalic. Atraumatic Eyes: PERRL. EOMI. Conjunctivae are not pale. ENT: Mucous membranes are moist and intact. Posterior pharynx without exudates or erythema. Uvula midline. Neck: Supple. Full ROM. No lymphadenopathy. Cardiovascular: Regular rate. Regular rhythm. S1, S2 regular. Distal pulses are 2+ and symmetric. Pulmonary/Chest: No evidence of respiratory distress. Clear to auscultation bilaterally No wheezing, rales or rhonchi. Abdominal: Soft and non-distended. There is no tenderness. No rebound, guarding or rigidity. No organomegaly. No palpable masses. Good bowel sounds. Back: No CVA tenderness. Musculoskeletal: No edema. No cyanosis. No clubbing. Full range of motion in all extremities. Nocalf tenderness. Radial/pedal pulses are intact and 2+ bilaterally Skin: Skin is warm and dry. No petechiae. No purpura. Neurological: Alert and oriented to person, place, and time. Cranial nerves II -XII are grossly intact. Normal speech. Strength is grossly symmetric. No sensory deficits. Psychiatric: Good eye contact. Normal interaction, affect and behavior. <Antonio Pizarro - Last Filed: 05/01/18 20:10> - Vital Signs Last Vital Signs Temp Pulse Resp BP Pulse Ox 97.8 F 78 16 121/65 100 05/01/18 17:45 05/01/18 17:45 05/01/18 17:45 05/01/18 17:45 05/01/18 17:45 <Radha Cuevas - Last Filed: 05/02/18 03:36> ED Treatment Course - ADDITIONAL ORDERS Additional order review: Laboratory Results 05/01/18 18:00 Urine Color Yellow Urine Appearance Clear Urine pH 6.5 Ur Specific [place] 1.015 Urine Protein Negative Urine Glucose (UA) Negative Urine Ketones Negative Urine Blood Negative Urine Nitrite Negative Urine Bilirubin Negative Urine Urobilinogen 0.2 Ur Leukocyte Esterase 2+ H Urine RBC 0-2 Urine WBC 10-20 Ur Epithelial Cells Few Urine Bacteria 1+ <Antonio Pizarro - Last Filed: 05/01/18 20:10> - ADDITIONAL ORDERS Additional order review: Laboratory Results 05/01/18 18:00 Urine Color Yellow Urine Appearance Clear Urine pH 6.5 Ur Specific [place] 1.015 Urine Protein Negative Urine Glucose (UA) Negative Urine Ketones Negative Urine Blood Negative Urine Nitrite Negative Urine Bilirubin Negative Urine Urobilinogen 0.2 Ur Leukocyte Esterase 2+ H Urine RBC 0-2 Urine WBC 10-20 Ur Epithelial Cells Few Urine Bacteria 1+ <Radha Cuevas - Last Filed: 05/02/18 03:36> Medical Decision Making - Medical Decision Making Documentation has been prepared under my direction and personally reviewed by me in its entirety. I attest that this documented accurately reflects all work, treatment, procedures and medical decision making performed by me. As noted above, this 73-year-old woman with a history of multiple drug ALLERGIES was referred here from urgent care after urine culture and sensitivity was found to be positive for organism that was sensitive only to a few antibiotics. Patient denies dysuria or other urinary symptoms. Patient is ALLERGIC to sulfa, metronidazole, fluoroquinolones. The organism was sensitive to aminoglycosides/third-generation and above cephalosporins/fluoroquinolones. Although the patient reported a rash with Omnicef, she states that she is not ALLERGIC to any of the other cephalosporins she has taken (such as Keflex). Exam as noted is unremarkable. Repeat urinalysis/urine culture and sensitivity sent UA shows 10-20 WBCs, 1+ bacteria/few epi/2+ LE Although the initial plan was to treat the patient with oral cefepime, local pharmacies were out of stock of this antibiotic Therefore, patient will be treated with second-generation cephalosporin (Ceftin 250 mg twice a day) until repeat culture and sensitivity results received. Meanwhile, the patient should return to the emergency room if she has fever/ chills/vomiting or increased pain. <Radha Cuevas - Last Filed: 05/02/18 03:36> *DC/Admit/Observation/Transfer - Attestations Scribe Attestion: 05/01/18 20:11 Documentation prepared by Antonio Pizarro, acting as administrative medical director for Radha Cuevas MD <Antonio Pizarro - Last Filed: 05/01/18 20:10> <Radha Cuevas - Last Filed: 05/02/18 03:36> Diagnosis at time of Disposition: UTI (urinary tract infection) Qualifiers: Urinary tract infection type: acute cystitis Hematuria presence: without hematuria Qualified Code(s): N30.00 - Acute cystitis without hematuria - Discharge Dispostion Disposition: HOME Condition at time of disposition: Stable - Prescriptions Prescriptions: Cefuroxime Axetil [Ceftin -] 250 mg PO BID #14 tablet Cefuroxime Axetil [Ceftin -] 250 mg PO BID #14 tablet - Patient Instructions Printed Discharge Instructions: DI for Urinary Tract Infection (UTI) Additional Instructions: Drink plenty of water Ceftin 250 mg twice a day for 1 week Stop Ceftin if you develop rash or any other ALLERGIC reaction Return to ER if you have worsening pain or develops fever/chills/vomiting Follow-up with your general doctor within the next 5 days
[2018-05-01] MEDS ORDERED: CEFUROXIME AXETIL 250 MG TABLET PO ONE (20:10)
== END 2018-05-01 20:42 | disposition home or self-care (01) ==
LOC: FER 17:45
DX: N30.00 Acute cystitis without hematuria (principal); K58.9 Irritable bowel syndrome, unspecified; K21.9 Gastro-esophageal reflux disease without esophagitis
CPT/HCPCS: 81003; 81015; 87086; 99282-25

== ENCOUNTER 2018-05-02 15:48 | Emergency (ER) | payer OTHER, BC, MEDICARE ==
[2018-05-02] MEDS ORDERED: KETOROLAC TROMETHAMINE 30 MG/1 ML VIAL IM ONE (15:52)
--- NOTE | 2018-05-02 15:53 | PDOC ---
History of Present Illness - General Chief Complaint: Pain Stated Complaint: Head pain Time Seen by Provider: 05/02/18 15:52 History Source: Patient, Old Records Exam Limitations: No Limitations - History of Present Illness Initial Comments: 05/02/18 15:57 73 year old female with history of cholecystectomy, GERD, gallstones status post cholecystectomy, H. pylori, urinary tract infection return to the ED for trigeminal neuralgia exacerbation. Patient reports that given her recent diagnosis with urinary tract infection, patient has noticed that her trigeminal neuralgia has worsened. Denies any headaches, nausea, vomiting. Patient states that she does not want to take Motrin at home and prefers a Toradol injection. Patient reports that she received her prescription for antibiotics but is considering waiting to take it given she is concerned for ALLERGIES. Past History - Past Medical History Allergies/Adverse Reactions: Allergies Allergy/AdvReac Type Severity Reaction Status Date / Time ciprofloxacin [From Cipro] Allergy Severe Difficulty Verified 05/02/18 15:51 Breathing ciprofloxacin HCl Allergy Severe Difficulty Verified 05/02/18 15:51 [From Cipro] Breathing codeine Allergy Severe Difficulty Verified 05/02/18 15:51 Breathing metronidazole [From Flagyl] Allergy Severe Difficulty Verified 05/02/18 15:51 Breathing Sulfa (Sulfonamide Allergy Severe Difficulty Verified 05/02/18 15:51 Antibiotics) Breathing sulfamethoxazole Allergy Severe Difficulty Verified 05/02/18 15:51 [From Septra] Breathing trimethoprim [From Septra] Allergy Severe Difficulty Verified 05/02/18 15:51 Breathing Home Medications: Ambulatory Orders Esomeprazole Magnesium [Nexium 24Hr] 40 mg PO DAILY 01/18/16 Ibuprofen 400 mg PO TID PRN 03/17/18 traMADol HCL [Ultram -] 50 mg PO Q12H PRN #8 tablet MDD 2 pills 04/29/18 Cefuroxime Axetil [Ceftin -] 250 mg PO BID #14 tablet 05/01/18 Cefuroxime Axetil [Ceftin -] 250 mg PO BID #14 tablet 05/01/18 COPD: No CHF: No DVT: No GI Disorders: Yes (ACID REFLUX, GALLSTONES, H. PYLORI) - Surgical History Cholecystectomy: Yes - Immunization History Immunization Up to Date: No - Suicide/Smoking/Psychosocial Hx Smoking History: Never smoked Have you smoked in the past 12 months: No Number of Cigarettes Smoked Daily: 0 Hx Alcohol Use: No Drug/Substance Use Hx: No Substance Use Type: None Review of Systems - Review of Systems Able to Perform ROS?: Yes Comments:: 05/02/18 15:58 GENERAL/CONSTITUTIONAL: [No fever or chills. No weakness. No weight change.] HEAD, EYES, EARS, NOSE AND THROAT: [No change in vision. No ear pain or discharge. No sore throat.] CARDIOVASCULAR: [No chest pain or shortness of breath.] RESPIRATORY: [No cough, wheezing, or hemoptysis.] GASTROINTESTINAL: [No nausea, vomiting, diarrhea or constipation. No rectal bleeding.] GENITOURINARY: [No dysuria, frequency, or change in urination.] MUSCULOSKELETAL: [No joint or muscle swelling or pain. No neck or back pain.] SKIN AND BREASTS: [No rash or easy bruising.] NEUROLOGIC: [No headache, vertigo, loss of consciousness, or loss of sensation. ] +left sided scalp pain PSYCHIATRIC: [No depression or anxiety.] ENDOCRINE: [No increased thirst. No abnormal weight change.] HEMATOLOGIC/LYMPHATIC: [No anemia, easy bleeding, or history of blood clots.] ALLERGIC/IMMUNOLOGIC: [No hives or skin allergy. No latex allergy.] *Physical Exam - Physical Exam Comments: 05/02/18 15:59 GENERAL: Awake, alert, and fully oriented, in no acute distress HEAD: No signs of trauma EYES:EOMI, sclera anicteric, conjunctiva clear ENT: Auricles normal inspection, hearing grossly normal, nares patent NECK: Normal ROM, supple, EXTREMITIES: Normal range of motion, no edema. No clubbing or cyanosis. No cords, erythema, or tenderness NEUROLOGICAL: Cranial nerves II through XII grossly intact. Normal speech, normal gait SKIN: Warm, Dry, normal turgor, no rashes or lesions noted. Medical Decision Making - Medical Decision Making 05/02/18 15:59 Impression: The patient has trigeminal neuralgia exacerbation, likely secondary to her urinary tract infection. The patient also seems hesitant about taking her cefuroxime. She states that she looked up on the Internet that this medication contains sulfa molecule. I had consulted pharmacy multiple times in regards to this, and they report that this medication is safe for sulfa ALLERGIES. The patient states that she does not want to be admitted either for IV antibiotics. I reviewed the urine culture results and the patient was noted to have 10,000 colony forming units of multidrug resistance urinary tract infection Morganella Morganii 04/29/18. The urine sensitivities: Augmentin: R Unasyn: R Ampicillin: R Cefazolin: R Cefepime: S <=1 Ceftazidime S <=1 Ceftriaxone: S <=1 Ciprofloxacin: S <=0.25 Ertapenem: S <=0.5 Gentamicin: S <=1 Imipenem: S 4 Levofloxacin: S <=0.12 Nitrofurantoin: R Zosyn: S <=4 Tobramycin: S <=1 Bactrim: S <=20 I strongly encourage the patient to take the cefuroxime as prescribed. However, the patient is quite hesitant, and thinks she may have an allergy to it many years ago. I advised that she may benefit from an admission to the hospital for IV medications. The patient does not want an admission to the hospital as she states she's been to too many doctors. Her only symptom is urinary frequency. After a lengthy discussion, I advised the patient that if she does not want to be admitted or take the antibiotics orally, she would benefit from an infectious disease consultation as an outpatient. Given that the urine culture has 10k CFU, and no fevers, will encourage her to follow up with infectious disease. Pt prefers it this way as well as she absolutely does not want to be admitted. I spoke to her and her that if she develops worsening symptoms that she should return to the ER. The patient does have capacity and is able to repeat risks. The patient states that she has work events that she needs to attend. Will give the patient an injection of toradol and will encourage her to come back to the ER if she wishes to do so. *DC/Admit/Observation/Transfer Diagnosis at time of Disposition: Trigeminal neuralgia of left side of face - Discharge Dispostion Disposition: HOME Condition at time of disposition: Stable Decision to Admit order: No - Referrals Referrals: Dena Caraballo MD [Staff Physician] - Wili Lewis MD [Staff Physician] - - Patient Instructions Printed Discharge Instructions: DI for Trigeminal Neuralgia Additional Instructions: You have received an injection of toradol. Please follow up with your doctor. Please make an appointment with an infectious disease specialist. Call to schedule an appointment. - Post Discharge Activity
[2018-05-02] MEDS ORDERED: KETOROLAC TROMETHAMINE 30 MG/1 ML VIAL ONE (15:54)
[2018-05-02 16:01] VITALS: BP 123/87; PULSE 85; TEMP 98.1; BMI 22.4
[2018-05-03 16:08] LABS: PH,URINE 6.5 (4.5-8); URINE APPEARANCE Clear; URINE BILIRUBIN Negative (NEGATIVE); URINE COLOR Yellow; URINE GLUCOSE (UA) Negative (NEGATIVE); URINE KETONE Trace (NEGATIVE); URINE LEUK ESTERASE 1+ (NEGATIVE); URINE NITRITE Negative (NEGATIVE); URINE PROTEIN Negative (NEGATIVE); URINE UROBILINOGEN 0.2 (0.2-1.0)
[2018-05-03 16:23] LABS: AMORP URATES 1+ /hpf (NONE SEEN); EPI CELLS FEW /HPF; URINE RBC 0-2 /hpf (0-3)
== END 2018-05-02 16:11 | disposition home or self-care (01) ==
LOC: FER 15:48
PROC: 3E0233Z Introduction of Anti-inflammatory into Muscle, Percutaneous Approach (ICD-10-PCS; principal; 2018-05-02)
DX: G50.0 Trigeminal neuralgia (principal); K21.9 Gastro-esophageal reflux disease without esophagitis; Z87.440 Personal history of urinary (tract) infections
CPT/HCPCS: 81003; 81015; 87086; 87186; 99281-25

== ENCOUNTER 2018-05-30 07:05 | Emergency (ER) | payer OTHER, BC, MEDICARE ==
[2018-05-30 07:25] VITALS: BP 131/80; PULSE 67; TEMP 97.6; BMI 20.2
--- NOTE | 2018-05-30 07:26 | PDOC ---
History of Present Illness - General Chief Complaint: Pain, Acute Stated Complaint: JAW PAIN Time Seen by Provider: 05/30/18 07:18 History Source: Patient (Patient walked in c.o jaw pain after eating a piece of bread this am.Advised by phone by her oral surgeon to have an X ray done. ) Exam Limitations: No Limitations - History of Present Illness Severity: mild, moderate Associated Symptoms: reports: denies symptoms Past History - Travel Traveled outside of the country in the last 30 days: No Close contact w/someone who was outside of country & ill: No - Past Medical History Allergies/Adverse Reactions: Allergies Allergy/AdvReac Type Severity Reaction Status Date / Time ciprofloxacin [From Cipro] Allergy Severe Difficulty Verified 05/30/18 07:17 Breathing ciprofloxacin HCl Allergy Severe Difficulty Verified 05/30/18 07:17 [From Cipro] Breathing codeine Allergy Severe Difficulty Verified 05/30/18 07:17 Breathing metronidazole [From Flagyl] Allergy Severe Difficulty Verified 05/30/18 07:17 Breathing Sulfa (Sulfonamide Allergy Severe Difficulty Verified 05/30/18 07:17 Antibiotics) Breathing sulfamethoxazole Allergy Severe Difficulty Verified 05/30/18 07:18 [From Septra] Breathing trimethoprim [From Septra] Allergy Severe Difficulty Verified 05/30/18 07:18 Breathing Home Medications: Ambulatory Orders Esomeprazole Magnesium [Nexium 24Hr] 40 mg PO DAILY 01/18/16 Ibuprofen 400 mg PO TID PRN 03/17/18 Cephalexin [Keflex] 500 mg PO BID 05/30/18 COPD: No CHF: No DVT: No GI Disorders: Yes (ACID REFLUX, GALLSTONES, H. PYLORI) Other medical history: Left sided trigeminal neuralgia - Surgical History Cholecystectomy: Yes Other Surgical History: oral surgery, left jaw cyst and molars removed 6 years ago 05/30/18 07:46 - Immunization History Immunization Up to Date: No - Suicide/Smoking/Psychosocial Hx Smoking History: Never smoked Have you smoked in the past 12 months: No Number of Cigarettes Smoked Daily: 0 Hx Alcohol Use: No Drug/Substance Use Hx: No Substance Use Type: None Review of Systems - Review of Systems Able to Perform ROS?: Yes Is the patient limited Setswana proficient: Yes Constitutional: No: Symptoms Reported, See HPI, Chills, Diaphoresis, Fever, Loss of Appetite, Malaise, Night Sweats, Weakness, Weight Stable, Unintentional Wgt. Loss, Unexplained wgt Loss, Other HEENTM: Yes: See HPI Respiratory: No: Symptoms reported, See HPI, Cough, Orthopnea, Shortness of Breath, SOB with Exertion, SOB at Rest, Stridor, Wheezing, Productive cough, Hemoptysis, Other Cardiac (ROS): No: Symptoms Reported, See HPI, Chest Pain, Edema, Irregular Heart Rate, Lightheadedness, Palpitations, Syncope, Chest Tightness, Other ABD/GI: No: Symptoms Reported, See HPI, Abdominal Distended, Abd. Pain w/ defecation, Blood Streaked Bowels, Constipated, Diarrhea, Difficulty Swallowing , Nausea, Poor Appetite, Poor Fluid Intake, Rectal Bleeding, Vomiting, Indigestion, Abdominal cramping, Tarry Stools, Other : No: Symptoms Reported, See HPI, Burning, Dysuria, Discharge, Frequency, Flank Pain, Hematuria, Incontinence, Pain, Urgency, Testicular Mass, Testicular Swelling, Lesions, Testicular Pain, Other Psychiatric: Yes: Anxiety All Other Systems: Reviewed and Negative *Physical Exam - Physical Exam General Appearance: Yes: Nourished, Appropriately Dressed, Mild Distress, Thin HEENT: positive: MANA, Normal ENT Inspection, Other (Tenderness at palpation over the left mandible and left TMJ area, skin intact. 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 Patient took 400mg of Motrein around 7:30 am with current pain reduced by 70%. Denied any additional pain medication 05/30/18 07:54 *DC/Admit/Observation/Transfer Diagnosis at time of Disposition: TMJ (temporomandibular joint syndrome), Jaw pain - Discharge Dispostion Disposition: HOME Condition at time of disposition: Stable Decision to Admit order: No - Referrals Referrals: Marcell Avila [Primary Care Provider] - - Patient Instructions Printed Discharge Instructions: DI for Temporomandibular Disorder Additional Instructions: Take Motrin 400 mg three times aday with food if any discomfort Follow up with your oral surgeon, Dr. Sue. - Post Discharge Activity
== END 2018-05-30 09:00 | disposition home or self-care (01) ==
LOC: FER 07:05
DX: M26.609 Unspecified temporomandibular joint disorder, unspecified side (principal); F41.9 Anxiety disorder, unspecified
CPT/HCPCS: 70110-TC-FY; 99281-25

== ENCOUNTER 2018-06-06 11:12 | Emergency (ER) | payer OTHER, BC, MEDICARE ==
[2018-06-06 11:18] VITALS: BP 124/82; PULSE 70; TEMP 98.3; BMI 22.4
--- NOTE | 2018-06-06 11:51 | PDOC ---
History of Present Illness - General Chief Complaint: Pain Stated Complaint: abdominal pain,nausea Time Seen by Provider: 06/06/18 11:14 - History of Present Illness Initial Comments: 06/06/18 11:49 73 F with h/o trigeminal neuralgia, GERD, IBS, presenting to ED with RLQ pain. Pt states that she ate a tuna sandwich yesterday and subsequently felt like she was having indigestion. Pt denies N/V/D. Denies F/C. States that she had a pain in her lower abdomen. Pt went to urgent care today, where she was told she might have appendicitis. Pt presents to ED for further evaluation. Past History - Past Medical History Allergies/Adverse Reactions: Allergies Allergy/AdvReac Type Severity Reaction Status Date / Time ciprofloxacin [From Cipro] Allergy Severe Difficulty Verified 06/06/18 11:13 Breathing ciprofloxacin HCl Allergy Severe Difficulty Verified 06/06/18 11:13 [From Cipro] Breathing codeine Allergy Severe Difficulty Verified 06/06/18 11:13 Breathing metronidazole [From Flagyl] Allergy Severe Difficulty Verified 06/06/18 11:13 Breathing Sulfa (Sulfonamide Allergy Severe Difficulty Verified 06/06/18 11:13 Antibiotics) Breathing sulfamethoxazole Allergy Severe Difficulty Verified 06/06/18 11:13 [From Septra] Breathing trimethoprim [From Septra] Allergy Severe Difficulty Verified 06/06/18 11:13 Breathing iv contrast Allergy Unknown Uncoded 06/06/18 12:49 Home Medications: Ambulatory Orders Esomeprazole Magnesium [Nexium 24Hr] 40 mg PO HS 06/06/18 COPD: No CHF: No DVT: No GI Disorders: Yes (ACID REFLUX, GALLSTONES, H. PYLORI,IBS) - Surgical History Cholecystectomy: Yes - Immunization History Immunization Up to Date: No - Suicide/Smoking/Psychosocial Hx Smoking History: Never smoked Have you smoked in the past 12 months: No Number of Cigarettes Smoked Daily: 0 Hx Alcohol Use: No Drug/Substance Use Hx: No Substance Use Type: None Review of Systems - Review of Systems Comments:: 06/06/18 11:50 "GENERAL/CONSTITUTIONAL: No fever or chills. No weakness. HEAD, EYES, EARS, NOSE AND THROAT: No change in vision. No ear pain or discharge. No sore throat. CARDIOVASCULAR: No chest pain, no shortness of breath, no loss of consciousness RESPIRATORY: No cough, wheezing, or hemoptysis. GASTROINTESTINAL: + abdominal pain, No nausea, vomiting, diarrhea or constipation. GENITOURINARY: No dysuria, frequency, or change in urination. MUSCULOSKELETAL: No joint or muscle swelling or pain. No neck or back pain. SKIN: No rash NEUROLOGIC: No vertigo, no change in strength/sensation. ENDOCRINE: No increased thirst. No abnormal weight change. HEMATOLOGIC/LYMPHATIC: No anemia, easy bleeding, or history of blood clots. ALLERGIC/IMMUNOLOGIC: No hives or skin allergy. *Physical Exam - Vital Signs Last Vital Signs Temp Pulse Resp BP Pulse Ox 98.3 F 70 18 124/82 100 06/06/18 11:13 06/06/18 11:13 06/06/18 11:13 06/06/18 11:13 06/06/18 11:13 - Physical Exam Comments: 06/06/18 11:51 "GENERAL: Awake, alert, and fully oriented, in no acute distress. HEAD: No signs of trauma EYES: PERRLA, EOMI, sclera anicteric, conjunctiva clear ENT: Auricles normal inspection, hearing grossly normal, nares patent, oropharynx clear without exudates. Moist mucosa NECK: Nontender, no stepoffs, Normal ROM, supple, no lymphadenopathy, JVD, or masses LUNGS: Breath sounds equal, clear to auscultation bilaterally. No wheezes, and no crackles HEART: Regular rate and rhythm, normal S1 and S2, no murmurs, rubs or gallops ABDOMEN: + mild RLQ tenderness on deep palpation, Soft, normoactive bowel sounds. No guarding, no rebound. No masses EXTREMITIES: Normal range of motion, no edema. No clubbing or cyanosis. No cords, erythema, or tenderness NEUROLOGICAL: Cranial nerves II through XII intact. 5/5 strength and sensation in all extremities, Normal speech, normal gait, normal cerebellar function SKIN: Warm, Dry, normal turgor, no rashes or lesions noted. ED Treatment Course - LABORATORY CBC & Chemistry Diagram: 06/06/18 11:40 06/06/18 11:40 - RADIOLOGY Radiology Studies Ordered: Category Date Time Status ABDOMEN & PELVIS CT WITH CONTR [CT] Stat CT Scan 06/06/18 11:38 Ordered Medical Decision Making - Medical Decision Making 06/06/18 11:51 73 F with RLQ tenderness. Low suspicion for acute appy given very mild tenderness on exam, but will r/o with CT. Also consider cystitis/UTI. - Labs, UA - CTAP 06/06/18 13:54 Labs wnl UA clean CTAP shows no evidence of appy. R hydrosalpinx found, possible etiology of pt's pain. Pt not sexually active with no infectious symptoms, very low suspicion for PID or TOA. Pt reassessed - now with complete resolution of pain. Repeat abdominal exam with NO tenderness. Pt is well appearing, with normal vitals. Clinically stable for DC at this time. I discussed the physical exam findings, ancillary test results and final diagnoses with the patient. I answered all of the patient's questions. The patient was satisfied with the care received and felt comfortable with the discharge plan and treatment plan. The patient agrees to follow up with the primary care physician within 24-72 hours. *DC/Admit/Observation/Transfer Diagnosis at time of Disposition: Abdominal pain - Discharge Dispostion Disposition: HOME Condition at time of disposition: Fair - Referrals Referrals: Sandor Chapman MD [Staff Physician] - Trevon Felipe MD [Staff Physician] - - Patient Instructions Additional Instructions: Your CT scan today did not show appendicitis. However, there were a few findings that need prompt follow up, includin. Cyst-like structures in your liver that will require an ultrasound for further evaluation 2. A nodule on your right kidney that needs further imaging. 3. A nodule in your right lung that needs further imaging. 4. Swelling of your R fallopian tube. While these may all be harmless, you will need to have additional imaging and possibly biopsies to rule out cancer. If you experience worsening pain, fevers, vomiting, or any other concerning symptoms, return to the ER immediately. Otherwise, follow up with your primary doctor within 1 week for further evaluation of the above findings. 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 - Post Discharge Activity - Attestations Physician Attestion: 06/06/18 13:53 I, Dr. Tam Jaimes MD, attest that this document has been prepared under my direction and personally reviewed by me in its entirety. I further attest, that it accurately reflects all work, treatment, procedures and medical decision -making performed by me.
[2018-06-06 12:08] LABS: PH,URINE 6.5 (4.5-8); URINE APPEARANCE Clear; URINE BILIRUBIN Negative (NEGATIVE); URINE COLOR Yellow; URINE GLUCOSE (UA) Negative (NEGATIVE); URINE KETONE Negative (NEGATIVE); URINE LEUK ESTERASE TRACE (NEGATIVE); URINE NITRITE Negative (NEGATIVE); URINE PROTEIN Negative (NEGATIVE); URINE UROBILINOGEN 0.2 (0.2-1.0)
[2018-06-06 12:09] LABS: BASO % 1.7 % (0-2.0); EOS % 1.3 % (0-4.5); HEMATOCRIT 39.4 % (32.4-45.2); HEMOGLOBIN 13.3 GM/dl (10.7-15.3); LYMPH % 29.4 % (8-40); MCH 30.2 pg (25.7-33.7); MCHC 33.7 g/dl (32.0-36.0); MEAN CELL VOLUME 89.8 fl (80-96); MEAN PLT VOLUME 9.3 fl (7.5-11.1); MONO % 6.4 % (3.8-10.2); NEUT % 61.2 % (42.8-82.8); PLATELET COUNT 226 K/MM3 (134-434); RBC 4.39 M/mm3 (3.60-5.2); WHITE BLOOD COUNT 4.4 K/mm3 (4.0-10.8)
[2018-06-06 12:22] LABS: ALBUMIN 3.7 g/dl (3.5-5.0); ALK PHOS 72 U/L (32-92); ANION GAP 5 MMOL/L (8-16); BILIRUBIN,TOTAL 0.6 mg/dl (0.2-1.0); BLOOD UREA NITROGEN 14 mg/dl (7-18); CALCIUM 8.6 mg/dl (8.4-10.2); CHLORIDE 107 mmol/L (98-107); CO2 24 mmol/L (22-28); CREATININE 0.5 mg/dl (0.6-1.3); GLUCOSE,RANDOM 94 mg/dl (74-106); POTASSIUM 3.7 mmol/L (3.5-5.1); SGOT/AST 16 U/L (10-42); SGPT/ALT 13 U/L (10-40); SODIUM 136 mmol/L (136-145); TOT PROT 6.5 g/dl (6.4-8.3)
[2018-06-06 12:58] LABS: EPI CELLS FEW /HPF; URINE RBC 0-2 /hpf (0-3)
== END 2018-06-06 14:10 | disposition home or self-care (01) ==
LOC: FER 11:12
DX: R10.9 Unspecified abdominal pain (principal); K21.9 Gastro-esophageal reflux disease without esophagitis
CPT/HCPCS: 36415; 74176-TC; 80053; 81003; 81015; 85025; 87086; 99282-25

== ENCOUNTER 2018-07-21 01:56 | Emergency (ER) | payer OTHER, BC, MEDICARE ==
[2018-07-21 02:03] VITALS: BP 118/72; PULSE 67; TEMP 97.7; BMI 22.2
--- NOTE | 2018-07-21 02:06 | PDOC ---
History of Present Illness - General Chief Complaint: Pain, Acute Stated Complaint: LT FACIAL PAIN Time Seen by Provider: 07/21/18 02:00 - History of Present Illness Initial Comments: 07/21/18 02:06 73-year-old female with a history of trigeminal neuralgia, GERD, IBS presents to the emergency department with pain to the left face. Patient reports this is identical to her previous trigeminal neuralgia flares, sometimes induced by stress other times during dental procedures. Patient tried home over-the- counter medications with no improvement. Patient has seen pain management in the past for this. No fever no headaches no chest pain shortness of breath no nausea no vomiting diarrhea. Symptoms are moderate to severe persistent concent no exacerbating or alleviating factors. Past History - Past Medical History Allergies/Adverse Reactions: Allergies Allergy/AdvReac Type Severity Reaction Status Date / Time ciprofloxacin [From Cipro] Allergy Severe Difficulty Verified 06/06/18 11:13 Breathing ciprofloxacin HCl Allergy Severe Difficulty Verified 06/06/18 11:13 [From Cipro] Breathing codeine Allergy Severe Difficulty Verified 06/06/18 11:13 Breathing metronidazole [From Flagyl] Allergy Severe Difficulty Verified 06/06/18 11:13 Breathing Sulfa (Sulfonamide Allergy Severe Difficulty Verified 06/06/18 11:13 Antibiotics) Breathing sulfamethoxazole Allergy Severe Difficulty Verified 06/06/18 11:13 [From Septra] Breathing trimethoprim [From Septra] Allergy Severe Difficulty Verified 06/06/18 11:13 Breathing iv contrast Allergy Unknown Uncoded 06/06/18 12:49 Home Medications: Ambulatory Orders Esomeprazole Magnesium [Nexium 24Hr] 40 mg PO HS 06/06/18 COPD: No CHF: No DVT: No GI Disorders: Yes (ACID REFLUX, GALLSTONES, H. PYLORI,IBS) - Surgical History Cholecystectomy: Yes - Immunization History Immunization Up to Date: No - Suicide/Smoking/Psychosocial Hx Smoking History: Never smoked Have you smoked in the past 12 months: No Number of Cigarettes Smoked Daily: 0 Hx Alcohol Use: No Drug/Substance Use Hx: No Substance Use Type: None Review of Systems - Review of Systems Comments:: 07/21/18 02:28 ROS: A complete review of 10 out of 10 review of systems is taken and is negative apart from what is previously mentioned below and in the HPI. *Physical Exam - Vital Signs Last Vital Signs Temp Pulse Resp BP Pulse Ox 97.7 F 67 16 118/72 100 07/21/18 02:00 07/21/18 02:00 07/21/18 02:00 07/21/18 02:00 07/21/18 02:00 - Physical Exam Comments: 07/21/18 02:32 Vitals: Triage Vital signs reviewed General Appearance: no acute distress, well nourished well developed, Head: Atraumatic, Eyes: Pupils equal reactive round, extraocular movement intact Throat: Posterior oropharynx without erythema, mucous membranes moist, Face: TTP over the left side of patients face, no cellulitis Neck: Supple;No Nucal rigidity Chest Wall: Nontender Cardiac: Regular rate and rhythym, no murmurs, no rubs, no gallops, Lungs: Clear to auscultation bilateral, good air movement bilaterally, Skin: Warm and dry, no rashes or lesions, no rash, no petechiae Psych: normal mood, normal affect Moderate Sedation - Procedure Monitoring Vital Signs: Procedure Monitoring Vital Signs Temperature 97.7 F 07/21/18 02:00 Pulse Rate 67 07/21/18 02:00 Respiratory Rate 16 07/21/18 02:00 Blood Pressure 118/72 07/21/18 02:00 O2 Sat by Pulse Oximetry (%) 100 07/21/18 02:00 Medical Decision Making - Medical Decision Making 07/21/18 02:31 73-year-old female with a history of trigeminal neuralgia, GERD, IBS presents to the emergency department with pain to the left face. Patient reports this is identical to her previous trigeminal neuralgia flares Patient states her pain usually responds well to Toradol. We'll try IM Toradol observe and reassess. Pain improving still with some discomfort requesting tramadol. Given one pill tramadol patient with terminal rest. She'll follow-up with tomorrow Findings, the need for follow-up and strict return instructions discussed with patient. *DC/Admit/Observation/Transfer Diagnosis at time of Disposition: Trigeminal neuralgia of left side of face - Discharge Dispostion Condition at time of disposition: Stable Decision to Admit order: No - Referrals Referrals: Alphonse Fritz [Primary Care Provider] - - Patient Instructions Printed Discharge Instructions: Trigeminal Neuralgia Additional Instructions: Take-home medications as prescribed. Follow-up with your doctor on Saturday. Return to ED for any new different symptoms or for any concerns. - Post Discharge Activity
[2018-07-21] MEDS ORDERED: KETOROLAC TROMETHAMINE 30 MG/1 ML VIAL IM ONE (02:11)
[2018-07-21] MEDS ORDERED: traMADol HCL 50 MG TABLET PO ONE (03:14)
== END 2018-07-21 03:23 | disposition home or self-care (01) ==
LOC: SUPCPDRO 01:56 → FER 01:56
PROC: 3E0233Z Introduction of Anti-inflammatory into Muscle, Percutaneous Approach (ICD-10-PCS; principal; 2018-07-21)
DX: G50.0 Trigeminal neuralgia (principal); K58.9 Irritable bowel syndrome, unspecified; K21.9 Gastro-esophageal reflux disease without esophagitis
CPT/HCPCS: 96372; 99281-25

== ENCOUNTER 2018-09-14 07:20 | Emergency (ER) | payer OTHER, BC, MEDICARE ==
--- NOTE | 2018-09-14 07:27 | PDOC ---
History of Present Illness - General Chief Complaint: Pain Stated Complaint: facial pain Time Seen by Provider: 09/14/18 07:27 History Source: Patient Exam Limitations: No Limitations - History of Present Illness Initial Comments: 09/14/18 07:29 Ms Castano is a 73 yo F with a history of Grave's Disease, IBS, GERD and trigeminal neuralgia who presents with a complaint of exacerbation of her trigeminal neuralgia. Pt reports "sharp electrical shock pain" that starts on her left forehead all the way down to her left jaw, associated with numbness. Patient rates the pain 10/10, constant, radiation to left side of her head. Patient states the pain started at 1am this morning. She tried taking motrin with no relief. Patient denies any vomiting, ear pain, vision changes. No fevers or chills. No traumatic injuries. Pt reports that she gets an exacerbation of her pain once per month and thinks this is associated with reading/increased screen time. PMH: IBS, Grave's Disease, Acid Reflux, Trigeminal Neuralgia PSH: Cyst removal on left jaw, Hysterectomy, Pilonidal cyst removal Meds: Nexium, Meclizine ALL: Codeine, Sulfa, Cipro, Seafood, Flagyl Social: Denies alcohol/tobacco/illicit drug use ROS: GENERAL/CONSTITUTIONAL: No: fever, chills, weakness, loss of appetite. HEAD, EYES, EARS, NOSE AND THROAT: No: change in vision, ear pain, discharge, sore throat, throat swelling. CARDIOVASCULAR: No: chest pain, lightheadedness, palpitations, syncope RESPIRATORY: No: cough, shortness of breath, wheezing, hemoptysis, stridor. GASTROINTESTINAL: No: nausea, vomiting, diarrhea, abdominal pain GENITOURINARY: No: dysuria, hematuria, frequency, urgency, flank pain. MUSCULOSKELETAL: No: back pain, neck pain, joint pain, muscle swelling or pain SKIN: No: lesions, pallor, rash or easy bruising. NEUROLOGIC: No: headache, vertigo, paresthesias, weakness PE: GENERAL: The patient is in no acute distress. HEAD: Normal EYES: PERRLA, EOMI, sclera anicteric, conjunctiva clear. ENT: Ears normal, nares patent, oropharynx clear without exudates. Moist mucous membranes. NECK: Normal range of motion, supple LUNGS: Breath sounds equal, clear to auscultation bilaterally. No wheezes, and no crackles. HEART:Regular rate and rhythm, normal S1 and S2 without murmur, rub or gallop. ABDOMEN: Soft, nontender, normoactive bowel sounds. No guarding, no rebound. No masses palpable. EXTREMITIES: Normal range of motion, no edema. NEUROLOGICAL: (+) decreased sensation on left side of her face. Cranial nerves II through XII grossly intact. Normal speech. No focal neurological deficits. MUSCULOSKELETAL: Back non-tender to palpation, no CVA tenderness SKIN: Warm, Dry, normal turgor, no rashes or lesions noted. 09/14/18 07:35 Past History - Past Medical History Allergies/Adverse Reactions: Allergies Allergy/AdvReac Type Severity Reaction Status Date / Time ciprofloxacin [From Cipro] Allergy Severe Difficulty Verified 09/14/18 07:21 Breathing ciprofloxacin HCl Allergy Severe Difficulty Verified 09/14/18 07:21 [From Cipro] Breathing codeine Allergy Severe Difficulty Verified 09/14/18 07:21 Breathing metronidazole [From Flagyl] Allergy Severe Difficulty Verified 09/14/18 07:21 Breathing Sulfa (Sulfonamide Allergy Severe Difficulty Verified 09/14/18 07:21 Antibiotics) Breathing sulfamethoxazole Allergy Severe Difficulty Verified 09/14/18 07:21 [From Septra] Breathing trimethoprim [From Septra] Allergy Severe Difficulty Verified 09/14/18 07:21 Breathing iv contrast Allergy Unknown Uncoded 09/14/18 07:21 Home Medications: Ambulatory Orders Esomeprazole Magnesium [Nexium 24Hr] 40 mg PO HS 06/06/18 COPD: No CHF: No DVT: No GI Disorders: Yes (ACID REFLUX, GALLSTONES, H. PYLORI,IBS) - Surgical History Cholecystectomy: Yes - Immunization History Immunization Up to Date: No - Suicide/Smoking/Psychosocial Hx Smoking History: Never smoked Have you smoked in the past 12 months: No Number of Cigarettes Smoked Daily: 0 Hx Alcohol Use: No Drug/Substance Use Hx: No Substance Use Type: None Medical Decision Making - Medical Decision Making 09/14/18 07:38 Pt labs reviewed, most recent creatinine 0.5 Will give Toradol Will re assess Pt slightly improved This is a chronic condition for which pt can not take narcotics (due to sensitivity) Pt asked to follow up with pain management and neurology *DC/Admit/Observation/Transfer Diagnosis at time of Disposition: Trigeminal neuralgia of left side of face - Discharge Dispostion Disposition: HOME Condition at time of disposition: Stable Decision to Admit order: No - Referrals - Patient Instructions Printed Discharge Instructions: DI for Trigeminal Neuralgia Additional Instructions: Return to the emergency department immediately with ANY new, persistent or worsening symptoms. Continue any medications as previously prescribed by your physician. You should follow up with your primary doctor as soon as possible regarding today's emergency department visit. . Please make sure your doctor reviews the results of your emergency evaluation. Thank you for coming to the [facility] today for your care. It was a pleasure to see you today. Please note that your evaluation is INCOMPLETE until you follow-up with your doctor. - Post Discharge Activity
[2018-09-14 07:31] VITALS: BP 128/87; PULSE 81; TEMP 98.1; BMI 21.8
[2018-09-14] MEDS ORDERED: KETOROLAC TROMETHAMINE 30 MG/1 ML VIAL IM ONE (07:35)
[2018-09-14] MEDS ORDERED: KETOROLAC TROMETHAMINE 30 MG/1 ML VIAL ONE (07:44)
== END 2018-09-14 08:01 | disposition home or self-care (01) ==
LOC: FER 07:20
PROC: 3E0233Z Introduction of Anti-inflammatory into Muscle, Percutaneous Approach (ICD-10-PCS; principal; 2018-09-14)
DX: G50.0 Trigeminal neuralgia (principal); E05.00 Thyrotoxicosis with diffuse goiter without thyrotoxic crisis or storm; K58.9 Irritable bowel syndrome, unspecified; K21.9 Gastro-esophageal reflux disease without esophagitis
CPT/HCPCS: 99281-25

== ENCOUNTER 2018-10-13 08:18 | Emergency (ER) | payer OTHER, BC, MEDICARE ==
[2018-10-13 08:22] VITALS: BMI 21.6
[2018-10-13 08:30] VITALS: BP 125/79; PULSE 80; TEMP 97.5
[2018-10-13] MEDS ORDERED: traMADol HCL 50 MG TABLET PO ONE (08:42)
--- NOTE | 2018-10-13 08:42 | PDOC ---
History of Present Illness - General Chief Complaint: Pain, Acute Stated Complaint: FACIAL PAIN Time Seen by Provider: 10/13/18 08:21 History Source: Patient Exam Limitations: No Limitations - History of Present Illness Initial Comments: 73 yo F history trigeminal neuralgia, well known to this ED, presenting with L lower facial pain, consistent with prior exacerbations of chronic symptoms. No trauma, no difficulty moving her jaw. She states "I always get the pain at the exact same time of the month". She took 600 mg motrin without relief. Went to urgent care yesterday and was given toradol. Past History - Past Medical History Allergies/Adverse Reactions: Allergies Allergy/AdvReac Type Severity Reaction Status Date / Time ciprofloxacin [From Cipro] Allergy Severe Difficulty Verified 10/13/18 08:20 Breathing ciprofloxacin HCl Allergy Severe Difficulty Verified 10/13/18 08:20 [From Cipro] Breathing codeine Allergy Severe Difficulty Verified 10/13/18 08:20 Breathing metronidazole [From Flagyl] Allergy Severe Difficulty Verified 10/13/18 08:20 Breathing Sulfa (Sulfonamide Allergy Severe Difficulty Verified 10/13/18 08:20 Antibiotics) Breathing sulfamethoxazole Allergy Severe Difficulty Verified 10/13/18 08:20 [From Septra] Breathing trimethoprim [From Septra] Allergy Severe Difficulty Verified 10/13/18 08:20 Breathing levofloxacin [From Levaquin] Allergy Verified 10/13/18 08:20 iv contrast Allergy Unknown Uncoded 10/13/18 08:20 Home Medications: Ambulatory Orders Esomeprazole Magnesium [Nexium 24Hr] 40 mg PO HS 06/06/18 COPD: No CHF: No DVT: No GI Disorders: Yes (ACID REFLUX, GALLSTONES, H. PYLORI,IBS) - Surgical History Cholecystectomy: Yes - Immunization History Immunization Up to Date: No - Suicide/Smoking/Psychosocial Hx Smoking History: Never smoked Have you smoked in the past 12 months: No Number of Cigarettes Smoked Daily: 0 Hx Alcohol Use: No Drug/Substance Use Hx: No Substance Use Type: None Review of Systems - Review of Systems Able to Perform ROS?: Yes Comments:: GENERAL/CONSTITUTIONAL: No fever or chills. No weakness. HEAD, EYES, EARS, NOSE AND THROAT: No change in vision. No ear pain or discharge. No sore throat. +Facial pain. CARDIOVASCULAR: No chest pain or shortness of breath. RESPIRATORY: No cough, wheezing, or hemoptysis. GASTROINTESTINAL: No nausea, vomiting, diarrhea or constipation. GENITOURINARY: No dysuria, frequency, or change in urination. MUSCULOSKELETAL: No joint or muscle swelling or pain. No neck or back pain. SKIN: No rash. NEUROLOGIC: No headache, vertigo, loss of consciousness, or change in strength/ sensation. ENDOCRINE: No increased thirst. No abnormal weight change. HEMATOLOGIC/LYMPHATIC: No anemia, easy bleeding, or history of blood clots. ALLERGIC/IMMUNOLOGIC: No hives or skin allergy. *Physical Exam - Vital Signs Last Vital Signs Temp Pulse Resp BP Pulse Ox 97.5 F L 80 16 125/79 100 10/13/18 08:19 10/13/18 08:19 10/13/18 08:19 10/13/18 08:10/13/18 08:19 - Physical Exam Comments: GENERAL: Awake, alert, and fully oriented, in no acute distress HEAD: No signs of trauma. L lower face (along the jawline) noted to have hyperesthesia. No deformity, no trauma. EYES: PERRLA, EOMI, sclera anicteric, conjunctiva clear ENT: Auricles normal inspection, hearing grossly normal, nares patent, oropharynx clear without exudates. Moist mucosa NECK: Normal ROM, supple, no lymphadenopathy, JVD, or masses EXTREMITIES: Normal range of motion, no edema. No clubbing or cyanosis. No cords, erythema, or tenderness NEUROLOGICAL: Cranial nerves II through XII grossly intact except as noted above. Normal speech, normal gait. Motor intact SKIN: Warm, Dry, normal turgor, no rashes or lesions noted. Medical Decision Making - Medical Decision Making 10/13/18 09:37 Pt reports improvement with tramadol. Stable for DC home. She has an appointment with a medical marijuana specialist in 3 days for another opinion. *DC/Admit/Observation/Transfer Diagnosis at time of Disposition: Trigeminal neuralgia of left side of face - Discharge Dispostion Disposition: HOME Condition at time of disposition: Improved Decision to Admit order: No - Referrals Referrals: Alphonse Fritz [Primary Care Provider] - - Patient Instructions Printed Discharge Instructions: DI for Trigeminal Neuralgia - Post Discharge Activity
[2018-10-13] MEDS ORDERED: ONDANSETRON *ODT* 4 MG TABLET SL ONE (08:43)
[2018-10-13] MEDS ORDERED: traMADol HCL 50 MG TABLET ONE (08:44)
[2018-10-13] MEDS ORDERED: ONDANSETRON *ODT* 4 MG TABLET ONE (08:45)
== END 2018-10-13 09:40 | disposition home or self-care (01) ==
LOC: FER 08:18
DX: G50.0 Trigeminal neuralgia (principal); K21.9 Gastro-esophageal reflux disease without esophagitis
CPT/HCPCS: 99281-25; Q0162

== ENCOUNTER 2018-11-17 06:13 | Emergency (ER) | payer OTHER, BC, MEDICARE | END 2018-11-17 07:09 | disposition home or self-care (01) | LOC: FER 06:13 ==

== ENCOUNTER 2018-11-17 19:18 | Emergency (ER) | payer OTHER, BC, MEDICARE ==
[2018-11-17 19:23] VITALS: BP 128/93; PULSE 84; TEMP 97.4; BMI 20.9
[2018-11-17] MEDS ORDERED: KETOROLAC TROMETHAMINE 30 MG/1 ML VIAL IM ONE (19:27)
[2018-11-17] MEDS ORDERED: KETOROLAC TROMETHAMINE 30 MG/1 ML VIAL ONE (19:44)
--- NOTE | 2018-11-17 19:48 | PDOC ---
Documentation entered by Alex Randolph SCRIBE, acting as scribe for Lito Soto MD. Lito Soto MD: This documentation has been prepared by the Tomasa sanchez Xhesika, SCRIBE, under my direction and personally reviewed by me in its entirety. I confirm that the documentation accurately reflects all work, treatment, procedures, and medical decision making performed by me. History of Present Illness - General Chief Complaint: Pain Stated Complaint: LEFT FACIAL PAIN Time Seen by Provider: 11/17/18 19:32 History Source: Patient Exam Limitations: No Limitations - History of Present Illness Initial Comments: 11/17/18 19:50 The patient is a 73 year old female, with a significant past medical history of left-sided trigeminal neuralgia, GERD, IBS, Grave's disease who presents to the emergency department with L facial pain. The patient states she was seen here in the ED yesterday and was given a Toradol shot which relieved her pain. The patient presents today for another dose of Toradol after being advised by her PCP. The patient denies chest pain, shortness of breath, headache or dizziness. The patient denies fever, chills, nausea, vomit, diarrhea or constipation. The patient denies dysuria, frequency, urgency or hematuria. PAST MEDICAL HISTORY: no significant history PAST SURGICAL HISTORY: no significant history FAMILY HISTORY: no pertinent history SOCIAL HISTORY: Pt lives with family and is employed. MEDICATIONS: reviewed ALLERGIES: As per nursing notes 11/17/18 20:55 Assessment and plan: This is a 73-year-old female who has a long history of chronic pain and patient comes in intermittently for exacerbation of her trigeminal neuralgia. Patient said the only thing that works is a tordol shot. Patient was here approximately 12 hours ago given a Toradol shot and now returns for another shot. I advised patient that she needs to have a pain specialist that she can follow-up with. Past History - Past Medical History Allergies/Adverse Reactions: Allergies Allergy/AdvReac Type Severity Reaction Status Date / Time ciprofloxacin [From Cipro] Allergy Severe Difficulty Verified 11/17/18 19:19 Breathing ciprofloxacin HCl Allergy Severe Difficulty Verified 11/17/18 19:19 [From Cipro] Breathing codeine Allergy Severe Difficulty Verified 11/17/18 19:19 Breathing metronidazole [From Flagyl] Allergy Severe Difficulty Verified 11/17/18 19:19 Breathing Sulfa (Sulfonamide Allergy Severe Difficulty Verified 11/17/18 19:19 Antibiotics) Breathing sulfamethoxazole Allergy Severe Difficulty Verified 11/17/18 19:19 [From Septra] Breathing trimethoprim [From Septra] Allergy Severe Difficulty Verified 11/17/18 19:19 Breathing levofloxacin [From Levaquin] Allergy Verified 11/17/18 19:19 iv contrast Allergy Unknown Uncoded 11/17/18 19:19 Home Medications: Ambulatory Orders Esomeprazole Magnesium [Nexium 24Hr] 40 mg PO HS 06/06/18 COPD: No CHF: No DVT: No GI Disorders: Yes (ACID REFLUX, GALLSTONES, H. PYLORI,IBS) Other medical history: TRIGEMINAL NEURALGIA - Surgical History Cholecystectomy: Yes - Immunization History Immunization Up to Date: No - Suicide/Smoking/Psychosocial Hx Smoking History: Never smoked Have you smoked in the past 12 months: No Number of Cigarettes Smoked Daily: 0 Information on smoking cessation initiated: No Hx Alcohol Use: No Drug/Substance Use Hx: No Substance Use Type: None Review of Systems - Review of Systems Able to Perform ROS?: Yes Comments:: 11/17/18 19:51 General: No fevers or chills, no weakness, no weight loss HEENT: (+) L facial pain. No change in vision. No sore throat,. No ear pain CardioVascular: No chest pain or shortness of breath Respiratory:No cough, or wheezing. Gastrointestinal: no nausea, vomiting, diarrhea or constipation, No rectal bleeding Genitourinary: No dysuria, hematuria, or frequency Musculoskeletal: No joint or muscle pain or swelling Neurologic: No headache, vertigo, dizziness or loss of consciousness Psychiatric: nor depression Skin: No rashes or easy bruising Endocrine: no increased thirst or abnormal weight change Allergic: no skin or latex allergy All other systems reviewed and normal *Physical Exam - Vital Signs Last Vital Signs Temp Pulse Resp BP Pulse Ox 97.4 F L 84 18 128/93 100 11/17/18 19:18 11/17/18 19:18 11/17/18 19:18 11/17/18 19:18 11/17/18 19:18 - Physical Exam Comments: 11/17/18 19:51 GENERAL: The patient is awake, alert, and fully oriented, in no acute distress. HEAD: (+) Pain with talking. (+) pain with movement of L jaw. (+)Pain with palpation with distribution of L trigeminal nerve. Normal with no signs of trauma. EYES: Pupils equal, round and reactive to light, extraocular movements intact, sclera anicteric, conjunctiva clear. EXTREMITIES: Normal range of motion, no edema. NEUROLOGICAL: Normal speech, normal gait. PSYCH: Normal mood, normal affect. SKIN: Warm, Dry, normal turgor, no rashes or lesions noted. *DC/Admit/Observation/Transfer Diagnosis at time of Disposition: Trigeminal neuralgia of left side of face - Discharge Dispostion Disposition: HOME Condition at time of disposition: Stable Decision to Admit order: No - Referrals - Patient Instructions Additional Instructions: It is important that you get a pain specialist for Toradol shots from see you don't have to keep coming to the ED for your Toradol shots. Return to the emergency department immediately with ANY new, persistent or worsening symptoms. Continue any medications as previously prescribed by your physician. You should follow up with your primary doctor as soon as possible regarding today's emergency department visit. . Please make sure your doctor reviews the results of your emergency evaluation. Thank you for coming to the Emergency Department today for your care. It was a pleasure to see you today. Please note that your evaluation is INCOMPLETE until you follow-up with your doctor. - Post Discharge Activity
== END 2018-11-17 20:10 | disposition home or self-care (01) ==
LOC: FER 19:18
PROC: 3E0233Z Introduction of Anti-inflammatory into Muscle, Percutaneous Approach (ICD-10-PCS; principal; 2018-11-17)
DX: G50.0 Trigeminal neuralgia (principal); K21.9 Gastro-esophageal reflux disease without esophagitis; K58.9 Irritable bowel syndrome, unspecified; E05.00 Thyrotoxicosis with diffuse goiter without thyrotoxic crisis or storm
CPT/HCPCS: 96372; 99281-25; 99283-25; Q0162

== ENCOUNTER 2019-01-07 06:52 | Emergency (ER) | payer OTHER, BC, MEDICARE | END 2019-01-07 08:03 | disposition home or self-care (01) | LOC: FER 06:52 ==

== ENCOUNTER 2019-01-23 05:55 | Emergency (ER) | payer OTHER, BC, MEDICARE ==
[2019-01-23 06:03] VITALS: BP 139/82; PULSE 90; TEMP 98.2; BMI 20.9
--- NOTE | 2019-01-23 06:23 | PDOC ---
History of Present Illness - General Chief Complaint: Pain, Acute Stated Complaint: FACIAL PAIN Time Seen by Provider: 01/23/19 06:11 History Source: Patient Exam Limitations: No Limitations - History of Present Illness Initial Comments: 01/23/19 06:36 This is a frequent visitor to this emergency department for chronic pain/ migraine syndromes. Patient said she has tried everything and the only thing that seems to work is Toradol injections. So patient comes here frequently for her Toradol injections. Otherwise patient says she was at the urgent care center and diagnosed with sinusitis and sinuses are bothering her but she did not want to take the medication on a Z-Ned because of her IBS. Allergies: as per nursing notes Past Medical History: none Social history: Lives with family. No smoking. No alcohol. No illicit drugs. Surgical history: None General: No fevers or chills, no weakness, no weight loss HEENT: No change in vision. No sore throat,. No ear pain CardioVascular: no chest discomfort. No shortness of breath Respiratory:No cough, or wheezing. Gastrointestinal: no nausea, vomiting, diarrhea or constipation, No rectal bleeding Genitourinary: No dysuria, hematuria, or frequency Musculoskeletal: No joint or muscle pain or swelling Neurologic: + Migraine headache, vertigo, dizziness or loss of consciousness Psychiatric: nor depression Skin: No rashes or easy bruising Endocrine: no increased thirst or abnormal weight change Allergic: no skin or latex allergy All other systems reviewed and normal GENERAL: The patient is awake, alert, and fully oriented, in no acute distress. HEAD: Normal with no signs of trauma. There is tenderness on palpation over the sinuses bilaterally left side of her face EYES: Pupils equal, round and reactive to light, extraocular movements intact, sclera anicteric, conjunctiva clear. EXTREMITIES:atraumatic, Normal range of motion, no edema. NEUROLOGICAL: Normal speech, normal gait. PSYCH: Normal mood, normal affect. SKIN: Warm, Dry, normal turgor, no rashes or lesions noted. Assessment and plan: This is a 73-year-old female with chronic pain who comes in and got a Toradol shot. Addition to that he told patient she should take her antibiotic that she was given by the urgent care center as she does have pain in her sinuses but no fever or any other symptoms of infection. Patient discharged will follow-up with her primary care doctor Past History - Past Medical History Allergies/Adverse Reactions: Allergies Allergy/AdvReac Type Severity Reaction Status Date / Time ciprofloxacin [From Cipro] Allergy Severe Difficulty Verified 01/07/19 06:54 Breathing ciprofloxacin HCl Allergy Severe Difficulty Verified 01/07/19 06:54 [From Cipro] Breathing codeine Allergy Severe Difficulty Verified 01/07/19 06:54 Breathing metronidazole [From Flagyl] Allergy Severe Difficulty Verified 01/07/19 06:54 Breathing Sulfa (Sulfonamide Allergy Severe Difficulty Verified 01/07/19 06:54 Antibiotics) Breathing sulfamethoxazole Allergy Severe Difficulty Verified 01/07/19 06:54 [From Septra] Breathing trimethoprim [From Septra] Allergy Severe Difficulty Verified 01/07/19 06:54 Breathing levofloxacin [From Levaquin] Allergy Verified 01/07/19 06:54 iv contrast Allergy Unknown Uncoded 11/17/18 19:19 Home Medications: Ambulatory Orders Esomeprazole Magnesium [Nexium 24Hr] 40 mg PO HS 06/06/18 Lidocaine 5% Patch [Lidoderm -] 1 patch TP DAILY #5 patch 01/23/19 COPD: No CHF: No DVT: No GI Disorders: Yes (ACID REFLUX, GALLSTONES, H. PYLORI,IBS) Other medical history: FACIAL NEURALGIA - Surgical History Cholecystectomy: Yes - Immunization History Immunization Up to Date: No - Suicide/Smoking/Psychosocial Hx Smoking History: Never smoked Have you smoked in the past 12 months: No Number of Cigarettes Smoked Daily: 0 Hx Alcohol Use: No Drug/Substance Use Hx: No Substance Use Type: None *Physical Exam - Vital Signs Last Vital Signs Temp Pulse Resp BP Pulse Ox 98.2 F 90 18 139/82 98 01/23/19 05:59 01/23/19 05:59 01/23/19 05:59 01/23/19 05:59 01/23/19 05:59 *DC/Admit/Observation/Transfer Diagnosis at time of Disposition: Migraine Qualifiers: Migraine type: unspecified Status migrainosus presence: without status migrainosus Intractability: not intractable Qualified Code(s): G43.909 - Migraine, unspecified, not intractable, without status migrainosus - Discharge Dispostion Disposition: HOME Condition at time of disposition: Stable Decision to Admit order: No - Prescriptions Prescriptions: Lidocaine 5% Patch [Lidoderm -] 1 patch TP DAILY #5 patch - Referrals - Patient Instructions Additional Instructions: I sent a prescription to your pharmacy for a lidocaine patch get the prescription and give the patch to try. Also start the Z-Ned as discussed. Return to the emergency department immediately with ANY new, persistent or worsening symptoms. Continue any medications as previously prescribed by your physician. You should follow up with your primary doctor as soon as possible regarding today's emergency department visit. . Please make sure your doctor reviews the results of your emergency evaluation. Thank you for coming to the Emergency Department today for your care. It was a pleasure to see you today. Please note that your evaluation is INCOMPLETE until you follow-up with your doctor. - Post Discharge Activity
[2019-01-23] MEDS ORDERED: KETOROLAC TROMETHAMINE 60 MG/2 ML VIAL IM ONE (06:24)
[2019-01-23] MEDS ORDERED: KETOROLAC TROMETHAMINE 60 MG/2 ML VIAL ONE (06:25)
== END 2019-01-23 06:46 | disposition home or self-care (01) ==
LOC: FER 05:55
PROC: 3E0233Z Introduction of Anti-inflammatory into Muscle, Percutaneous Approach (ICD-10-PCS; principal; 2019-01-23)
DX: G43.909 Migraine, unspecified, not intractable, without status migrainosus (principal); K21.9 Gastro-esophageal reflux disease without esophagitis
CPT/HCPCS: 96372; 99281-25

== ENCOUNTER 2019-02-25 05:42 | Emergency (ER) | payer OTHER, BC, MEDICARE ==
[2019-02-25 05:49] VITALS: BP 136/88; PULSE 80; BMI 20.9
[2019-02-25] MEDS ORDERED: KETOROLAC TROMETHAMINE 60 MG/2 ML VIAL IM ONE (05:58)
[2019-02-25] MEDS ORDERED: KETOROLAC TROMETHAMINE 60 MG/2 ML VIAL ONE (06:00)
--- NOTE | 2019-02-25 06:02 | PDOC ---
History of Present Illness - General Chief Complaint: Pain, Acute Stated Complaint: FACE PAIN Time Seen by Provider: 02/25/19 05:56 History Source: Patient Exam Limitations: No Limitations - History of Present Illness Initial Comments: 02/25/19 06:42 This is a 73-year-old female well-known to me who comes in approximately once a month for evaluation and pain medication for her facial pain. Patient has some peripheral nerves damage secondary to procedure she had in the past. Patient has a shot of Toradol when she comes in and then feels better and doesn' t appear another month. Allergies: as per nursing notes Past Medical History: none Social history: Lives with family. No smoking. No alcohol. No illicit drugs. Surgical history: None General: No fevers or chills, no weakness, no weight loss HEENT: No change in vision. No sore throat,. No ear pain CardioVascular: no chest discomfort. No shortness of breath Respiratory:No cough, or wheezing. Gastrointestinal: no nausea, vomiting, diarrhea or constipation, No rectal bleeding Genitourinary: No dysuria, hematuria, or frequency Musculoskeletal: No joint or muscle pain or swelling Neurologic: + headache with left side facial pain, vertigo, dizziness or loss of consciousness Psychiatric: nor depression Skin: No rashes or easy bruising Endocrine: no increased thirst or abnormal weight change Allergic: no skin or latex allergy All other systems reviewed and normal GENERAL: The patient is awake, alert, and fully oriented, in no acute distress. HEAD: Normal with no signs of trauma. EYES: Pupils equal, round and reactive to light, extraocular movements intact, sclera anicteric, conjunctiva clear. EXTREMITIES:atraumatic, Normal range of motion, no edema. NEUROLOGICAL: Normal speech, normal gait. PSYCH: Normal mood, normal affect. SKIN: Warm, Dry, normal turgor, no rashes or lesions noted. Assessment and plan: This is a 73-year-old female who comes in about once a month for Toradol shot sometimes more frequently. Patient given her Toradol shot and discharged. Past History - Past Medical History Allergies/Adverse Reactions: Allergies Allergy/AdvReac Type Severity Reaction Status Date / Time ciprofloxacin [From Cipro] Allergy Severe Difficulty Verified 02/25/19 05:45 Breathing ciprofloxacin HCl Allergy Severe Difficulty Verified 02/25/19 05:45 [From Cipro] Breathing codeine Allergy Severe Difficulty Verified 02/25/19 05:45 Breathing metronidazole [From Flagyl] Allergy Severe Difficulty Verified 02/25/19 05:45 Breathing Sulfa (Sulfonamide Allergy Severe Difficulty Verified 02/25/19 05:45 Antibiotics) Breathing sulfamethoxazole Allergy Severe Difficulty Verified 02/25/19 05:45 [From Septra] Breathing trimethoprim [From Septra] Allergy Severe Difficulty Verified 02/25/19 05:45 Breathing levofloxacin [From Levaquin] Allergy Verified 02/25/19 05:45 iv contrast Allergy Unknown Uncoded 11/17/18 19:19 Home Medications: Ambulatory Orders Esomeprazole Magnesium [Nexium 24Hr] 40 mg PO HS 06/06/18 COPD: No CHF: No DVT: No GI Disorders: Yes (ACID REFLUX, GALLSTONES, H. PYLORI,IBS) - Surgical History Cholecystectomy: Yes - Immunization History Immunization Up to Date: No - Suicide/Smoking/Psychosocial Hx Smoking History: Never smoked Have you smoked in the past 12 months: No Number of Cigarettes Smoked Daily: 0 Information on smoking cessation initiated: No Hx Alcohol Use: No Drug/Substance Use Hx: No Substance Use Type: None *Physical Exam - Vital Signs Last Vital Signs Temp Pulse Resp BP Pulse Ox 80 16 136/88 99 02/25/19 05:46 02/25/19 05:46 02/25/19 05:46 02/25/19 05:46 *DC/Admit/Observation/Transfer Diagnosis at time of Disposition: Trigeminal neuralgia of left side of face - Discharge Dispostion Disposition: HOME Condition at time of disposition: Stable Decision to Admit order: No - Referrals - Patient Instructions Additional Instructions: Return to the emergency department immediately with ANY new, persistent or worsening symptoms. Continue any medications as previously prescribed by your physician. You should follow up with your primary doctor as soon as possible regarding today's emergency department visit. . Please make sure your doctor reviews the results of your emergency evaluation. Thank you for coming to the Emergency Department today for your care. It was a pleasure to see you today. Please note that your evaluation is INCOMPLETE until you follow-up with your doctor. - Post Discharge Activity
[2019-02-25] MEDS ORDERED: ONDANSETRON *ODT* 4 MG TABLET SL ONE (06:05)
[2019-02-25] MEDS ORDERED: ONDANSETRON *ODT* 4 MG TABLET ONE (06:05)
== END 2019-02-25 06:11 | disposition home or self-care (01) ==
LOC: FER 05:42
PROC: 3E0233Z Introduction of Anti-inflammatory into Muscle, Percutaneous Approach (ICD-10-PCS; principal; 2019-02-25)
DX: G50.0 Trigeminal neuralgia (principal); K21.9 Gastro-esophageal reflux disease without esophagitis
CPT/HCPCS: 99281-25; Q0162

== ENCOUNTER 2019-04-18 05:40 | Emergency (ER) | payer OTHER, BC, MEDICARE ==
[2019-04-18 05:50] VITALS: BP 120/79; PULSE 75; TEMP 97.5; BMI 19.3
--- NOTE | 2019-04-18 05:50 | PDOC ---
History of Present Illness - General Chief Complaint: Pain, Acute Stated Complaint: FACE PAIN Time Seen by Provider: 04/18/19 05:43 - History of Present Illness Initial Comments: 04/18/19 06:26 This 74-year-old woman with long history of left-sided chronic facial pain/ trigeminal neuralgia, secondary to procedure presents to ER with persistent pain. No clear trigger for this particular episode. Patient describes usual regimen of ibuprofen which in recent nights has been ineffective.Besides ibuprofen, patient has recently been using CBD oil with variable effectiveness Of note, she now has some right sided mid face pain as well as left-sided, which has been happening for the last few weeks for unclear reasons.. Patient states last night was particularly difficult and she has been in severe pain for the last few hours. the patient is scheduled to follow-up with an automobile damage field appraiser this coming week to rule out dental etiology of her pain. Past History - Past Medical History Allergies/Adverse Reactions: Allergies Allergy/AdvReac Type Severity Reaction Status Date / Time ciprofloxacin [From Cipro] Allergy Severe Difficulty Verified 02/25/19 05:45 Breathing ciprofloxacin HCl Allergy Severe Difficulty Verified 02/25/19 05:45 [From Cipro] Breathing codeine Allergy Severe Difficulty Verified 02/25/19 05:45 Breathing metronidazole [From Flagyl] Allergy Severe Difficulty Verified 02/25/19 05:45 Breathing Sulfa (Sulfonamide Allergy Severe Difficulty Verified 02/25/19 05:45 Antibiotics) Breathing sulfamethoxazole Allergy Severe Difficulty Verified 02/25/19 05:45 [From Septra] Breathing trimethoprim [From Septra] Allergy Severe Difficulty Verified 02/25/19 05:45 Breathing levofloxacin [From Levaquin] Allergy Verified 02/25/19 05:45 iv contrast Allergy Unknown Uncoded 11/17/18 19:19 Home Medications: Ambulatory Orders Esomeprazole Magnesium [Nexium 24Hr] 40 mg PO HS 06/06/18 COPD: No CHF: No DVT: No GI Disorders: Yes (ACID REFLUX, GALLSTONES, H. PYLORI,IBS) - Surgical History Cholecystectomy: Yes - Immunization History Immunization Up to Date: No - Psycho Social/Smoking Cessation Hx Smoking History: Never smoked Have you smoked in the past 12 months: No Number of Cigarettes Smoked Daily: 0 Hx Alcohol Use: No Drug/Substance Use Hx: No Substance Use Type: None Review of Systems - Review of Systems Able to Perform ROS?: Yes Comments:: 12 point review of systems is negative except for what is noted in the history of present illness *Physical Exam - Physical Exam Comments: GENERAL: Adult female, alert and oriented 3 HEAD: Normal with no signs of trauma. EYES: PERRLA, EOMI, sclera anicteric, conjunctiva clear. ENT: Ears normal, nares patent, oropharynx clear without exudates. Moist mucous membranes. Bite-block in place NECK: Normal range of motion, supple without lymphadenopathy, JVD, or masses. EXTREMITIES: Normal range of motion, no edema. No clubbing or cyanosis. No erythema, or tenderness. NEUROLOGICAL: Cranial nerves II through XII grossly intact. Normal speech. No focal neurological deficits. Medical Decision Making - Medical Decision Making This 74-year-old woman is well known to this ER with chronic left facial pain; she periodically presents with intractable pain episode. Toradol IM has been effective in the past. Tonight's episode is unchanged from previous times. Toradol 60 mg IM given. Patient reports relief after Toradol IM. States that she will go home and rest for the remainder of the day. She will be discharged with instructions to continue analgesia with ibuprofen as needed and return to the ER if she has persistent, severe pain. She is scheduled to follow-up with automobile damage field appraiser this week to rule out dental causes of her pain. Discharge - Discharge Information Problems reviewed: Yes Clinical Impression/Diagnosis: Chronic facial pain Condition: Stable Disposition: HOME - Follow up/Referral - Patient Discharge Instructions Patient Printed Discharge Instructions: DI for Trigeminal Neuralgia Additional Instructions: followup with automobile damage field appraiser this week as scheduled consider lowering head elevation at night as discussed continue ibuprofen as needed; continue CBD if effective return to ER if pain persists - Post Discharge Activity
[2019-04-18] MEDS ORDERED: KETOROLAC TROMETHAMINE 60 MG/2 ML VIAL IM ONE (06:06)
[2019-04-18] MEDS ORDERED: KETOROLAC TROMETHAMINE 60 MG/2 ML VIAL ONE (06:08)
== END 2019-04-18 06:25 | disposition home or self-care (01) ==
LOC: FER 05:40
PROC: 3E0233Z Introduction of Anti-inflammatory into Muscle, Percutaneous Approach (ICD-10-PCS; principal; 2019-04-18)
DX: G50.1 Atypical facial pain (principal); G89.29 Other chronic pain; Z88.8 Allergy status to other drugs, medicaments and biological substances; Z88.6 Allergy status to analgesic agent; G50.0 Trigeminal neuralgia; K21.9 Gastro-esophageal reflux disease without esophagitis; K58.9 Irritable bowel syndrome, unspecified
CPT/HCPCS: 96372; 99282-25

== ENCOUNTER 2019-04-19 07:38 | Emergency (ER) | payer OTHER, BC, MEDICARE ==
[2019-04-19 07:53] VITALS: BP 123/80; PULSE 87; TEMP 97.8; BMI 20.9
[2019-04-19] MEDS ORDERED: traMADol HCL 50 MG TABLET PO ONE (08:12)
[2019-04-19] MEDS ORDERED: traMADol HCL 50 MG TABLET ONE (08:17)
[2019-04-19] MEDS ORDERED: ONDANSETRON *ODT* 4 MG TABLET ONE (08:17)
[2019-04-19] MEDS ORDERED: ONDANSETRON *ODT* 4 MG TABLET SL ONE (08:18)
--- NOTE | 2019-04-19 08:18 | PDOC ---
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 pt has severe stabbing electric like pain. unable to sleep at night. cant lie on her side. has been to ed three times this week receiving toradol shots for her pain. has seen several pain management doctors. has taken motrin 200 mg at home. has already tried several medications gabapentin, amytriptilline, and carbamazepine no relief. has also tried cbd oil no relief. is unable to chew due to severity of pain. pt is allergic to codeine. 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 states she has also had a nasal polyp removd, and wonders if her allergies / sinus pressure may be exacerbating her pain. no f/c no other complaints. no fever. Past History - Past Medical History Allergies/Adverse Reactions: Allergies Allergy/AdvReac Type Severity Reaction Status Date / Time ciprofloxacin [From Cipro] Allergy Severe Difficulty Verified 04/19/19 07:40 Breathing ciprofloxacin HCl Allergy Severe Difficulty Verified 04/19/19 07:40 [From Cipro] Breathing codeine Allergy Severe Difficulty Verified 04/19/19 07:40 Breathing metronidazole [From Flagyl] Allergy Severe Difficulty Verified 04/19/19 07:40 Breathing Sulfa (Sulfonamide Allergy Severe Difficulty Verified 04/19/19 07:40 Antibiotics) Breathing sulfamethoxazole Allergy Severe Difficulty Verified 04/19/19 07:40 [From Septra] Breathing trimethoprim [From Septra] Allergy Severe Difficulty Verified 04/19/19 07:40 Breathing levofloxacin [From Levaquin] Allergy Verified 04/19/19 07:40 iv contrast Allergy Unknown Uncoded 11/17/18 19:19 Home Medications: Ambulatory Orders Esomeprazole Magnesium [Nexium 24Hr] 40 mg PO HS 06/06/18 Fluticasone Prop 0.05% Nasal [Flonase -] 1 spray NS DAILY #1 bot 04/19/19 Tramadol HCl 50 mg PO TID PRN #30 tablet MDD 3 04/19/19 COPD: No CHF: No DVT: No GI Disorders: Yes (ACID REFLUX, GALLSTONES, H. PYLORI,IBS) Other medical history: NERVE DAMAGE LEFT FACE - Surgical History Cholecystectomy: Yes - Immunization History Immunization Up to Date: No - Psycho Social/Smoking Cessation Hx Smoking History: Never smoked Have you smoked in the past 12 months: No Number of Cigarettes Smoked Daily: 0 Hx Alcohol Use: No Drug/Substance Use Hx: No Substance Use Type: None Review of Systems - Review of Systems Constitutional: No: Chills, Diaphoresis HEENTM: Yes: Other (facial pain). No: Eye Pain, Blurred Vision Respiratory: No: Cough, Orthopnea Cardiac (ROS): No: Chest Pain ABD/GI: No: Abdominal Distended, Nausea, Vomiting : No: Burning, Dysuria Musculoskeletal: Yes: Other (facial pain) Integumentary: No: Bruising, Change in Color All Other Systems: Reviewed and Negative *Physical Exam - Vital Signs Last Vital Signs Temp Pulse Resp BP Pulse Ox 97.8 F 87 16 123/80 100 04/19/19 07:40 04/19/19 07:40 04/19/19 07:40 04/19/19 07:40 04/19/19 07:40 - Physical Exam Comments: 04/19/19 08:18 awake alert lungs clear bilat heart rrr no mrg left facial decreased sensation, and hyperesthesia to light touch. Medical Decision Making - Medical Decision Making 04/19/19 08:20 74 yo F with nerve pain. plan to treat with tramadol. given rx for tramadol. recommend re trying medication such as amytriptiline or carbamazepine for her sxs. or slowly increasing doses of gabapentin. pt has seen DR Velásquez in pain management. recommend followup with dr velásquez's partner. Discharge - Discharge Information Problems reviewed: Yes Clinical Impression/Diagnosis: Chronic pain disorder, Trigeminal neuralgia of left side of face Condition: Stable Disposition: HOME - Admission No - Follow up/Referral - Patient Discharge Instructions Patient Printed Discharge Instructions: Trigeminal Neuralgia Additional Instructions: you can take tramadol up to three times daily. take 1 or 2 tablets ever 8 hours as needed for pain. you should folllow up with a pain management doctor. also follow up with your primary medical doctor. call to schedule. you should also use flonase nasal spray to help with sinusitis one spray each nostril daily - Post Discharge Activity
== END 2019-04-19 08:37 | disposition home or self-care (01) ==
LOC: FER 07:38
DX: G50.0 Trigeminal neuralgia (principal); G89.29 Other chronic pain; K21.9 Gastro-esophageal reflux disease without esophagitis; Z88.1 Allergy status to other antibiotic agents; Z88.6 Allergy status to analgesic agent
CPT/HCPCS: 99282-25; Q0162

== ENCOUNTER 2019-06-20 10:27 | Emergency (ER) | payer OTHER, BC, MEDICARE ==
[2019-06-20 10:44] VITALS: BP 136/80; PULSE 74; TEMP 98.1; BMI 20.9
[2019-06-20] MEDS ORDERED: KETOROLAC TROMETHAMINE 60 MG/2 ML VIAL IM ONE (10:47)
--- NOTE | 2019-06-20 10:47 | PDOC ---
History of Present Illness - General Chief Complaint: Chronic pain Stated Complaint: FACIAL PAIN Time Seen by Provider: 06/20/19 10:47 - History of Present Illness Initial Comments: 06/20/19 11:53 Chief complaint: Left facial pain HPI: Patient has a long history of trigeminal neuralgia with frequent emergency visits when the pain flares up. She has been under considerable stress lately, and her pain has been severe the last 2 days. Review of systems: No other neurological symptoms. No cranial nerve symptoms, focal deficits, or unsteadiness of gait. No chest pain, shortness of breath, abdominal pain, vomiting, diarrhea, urinary tract symptoms, vaginal bleeding or discharge. Remainder of systems reviewed and negative except for mild nausea, which also usually accompanies her symptoms Past medical history: Reviewed and as noted in previous charts Social/family history: Stress as noted. Otherwise negative Physical exam: Alert and oriented, well-developed well-nourished, mild to moderate distress due to facial pain, which is subjective. The patient however is lying comfortably and does not appear to be in acute distress Afebrile, vital signs normal Head atraumatic. PERRLA 3 mm, fundi benign with sharp disc margins and good central venous pulsations. ENT clear. Neurological C2 to 12 intact. Strength full and symmetric. No focal sensorimotor deficits. Gait stable and unimpaired Neck supple without bruit mass or nodes. No point tenderness or deformity Lungs clear, full breath sounds bilaterally CV regular without murmur rub or gallop Abdomen soft nontender without mass organomegaly Extremities no CCE Skin clear, no rash, adequate turgor and wet mucous membranes Impression: Flareup of chronic facial pain, usual pattern, related to stress Plan: Symptomatic treatment, analgesics, antiemetics, and usual follow-up primary physician. Past History - Past Medical History Allergies/Adverse Reactions: Allergies Allergy/AdvReac Type Severity Reaction Status Date / Time ciprofloxacin [From Cipro] Allergy Severe Difficulty Verified 06/20/19 10:37 Breathing ciprofloxacin HCl Allergy Severe Difficulty Verified 04/19/19 07:40 [From Cipro] Breathing codeine Allergy Severe Difficulty Verified 04/19/19 07:40 Breathing metronidazole [From Flagyl] Allergy Severe Difficulty Verified 04/19/19 07:40 Breathing Sulfa (Sulfonamide Allergy Severe Difficulty Verified 04/19/19 07:40 Antibiotics) Breathing sulfamethoxazole Allergy Severe Difficulty Verified 04/19/19 07:40 [From Septra] Breathing trimethoprim [From Septra] Allergy Severe Difficulty Verified 04/19/19 07:40 Breathing levofloxacin [From Levaquin] Allergy Verified 04/19/19 07:40 iv contrast Allergy Unknown Uncoded 11/17/18 19:19 Home Medications: Ambulatory Orders Esomeprazole Magnesium [Nexium 24Hr] 40 mg PO HS 06/06/18 Fluticasone Prop 0.05% Nasal [Flonase -] 1 spray NS DAILY #1 bot 04/19/19 COPD: No CHF: No DVT: No GI Disorders: Yes (ACID REFLUX, GALLSTONES, H. PYLORI,IBS) Other medical history: TRIGEMINAL NEURALGIA - Surgical History Cholecystectomy: Yes - Immunization History Immunization Up to Date: No - Psycho Social/Smoking Cessation Hx Smoking History: Never smoked Have you smoked in the past 12 months: No Number of Cigarettes Smoked Daily: 0 Hx Alcohol Use: No Drug/Substance Use Hx: No Substance Use Type: None *Physical Exam - Vital Signs Last Vital Signs Temp Pulse Resp BP Pulse Ox 98.1 F 74 16 136/80 100 06/20/19 10:28 06/20/19 10:28 06/20/19 10:28 06/20/19 10:28 06/20/19 10:28 Medical Decision Making - Medical Decision Making 06/20/19 12:44 Pain is improved. Patient is comfortable. Discharge with to follow-up primary physician. Discharge - Discharge Information Problems reviewed: Yes Clinical Impression/Diagnosis: Chronic facial pain Condition: Improved Disposition: HOME - Admission No - Follow up/Referral - Patient Discharge Instructions Additional Instructions: Rest, ibuprofen as needed. Consider learning about and implementing relaxation techniques, meditation, or yoga, since tolerance to medications is limited. Follow-up with neurologist as needed. - Post Discharge Activity
[2019-06-20] MEDS ORDERED: KETOROLAC TROMETHAMINE 30 MG/1 ML VIAL ONE (11:04)
[2019-06-20] MEDS ORDERED: ONDANSETRON *ODT* 4 MG TABLET SL ONE (11:09)
[2019-06-20] MEDS ORDERED: ONDANSETRON *ODT* 4 MG TABLET ONE (11:11)
[2019-06-20] MEDS ORDERED: diazePAM 2 MG TABLET ONE (12:37)
[2019-06-20] MEDS ORDERED: diazePAM 2 MG TABLET PO ONE (12:37)
== END 2019-06-20 12:51 | disposition home or self-care (01) ==
LOC: FER 10:27
PROC: 3E0233Z Introduction of Anti-inflammatory into Muscle, Percutaneous Approach (ICD-10-PCS; principal; 2019-06-20)
DX: G50.1 Atypical facial pain (principal); G89.29 Other chronic pain; G50.0 Trigeminal neuralgia
CPT/HCPCS: 99281-25; Q0162

== ENCOUNTER 2019-06-21 07:13 | Emergency (ER) | payer OTHER, BC, MEDICARE ==
[2019-06-21 07:20] VITALS: BP 128/83; PULSE 58; TEMP 97.9; BMI 20.9
--- NOTE | 2019-06-21 07:23 | PDOC ---
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 pt states she has chronic numbness and pain on left side of face, sharp pain radiates from left jaw to left adventist/eye. pt usually has 3 day exacerbations of her symptoms, this time started about 2 days ago, possibly after eating bread that may have been too hard. usually she eats pureed food. recent root canal on right side done about 2 weeks ago, no complications. also has TMJ syndrome today she drank cup of coffee and felt nauseous. +difficulty eating and sleeping due to the pain, usually wakes up around midnight with the exacerbation of symptoms. last seen in the ED yesterday for similar sx, discharged with rest and appropriate otc analgesics. given zofran, toradol, valium at that time; usually toradol works. previously seen pain specialist, failed regimens such as carbamazepine, TCA, trileptal and gabapentin. Denies fever, chills, chest pain, SOB, palpitation, dizziness, weakness, N, V, D , abdominal pain, bladder and bowel problems, focal weakness/paresthesias, leg swelling/pain, rash. Allergies: cipro, flagyl, codeine Past Medical History/PSH: as above Social history: Lives with family. No tobacco, ETOH or drug use. Meds: as documented in EMR Family history: noncontributory Review of systems Constitutional: no fevers or chills. No weakness. +difficulty sleeping and eating. HEENT: no headache or dizziness. No congestion. No visual/hearing disturbances. no eye pain, ear pain, tinnitis, sore throat. +facial pain, +jaw pain. CVS: no cp or syncope. Resp: no sob. No cough. Gastrointestinal: no abdominal pain, vomiting, diarrhea. +nausesa MUSCULOSKELETAL: No joint pain and swelling. No neck or back pain. +jaw pain. SKIN: no redness or skin changes, no discharge, no rash. No wounds. Hematologic: no easy bruising/bleeding. NEUROLOGIC: No headache, dizziness, LOC or altered mental status. No weakness, numbness or tingling. +facial pain Allergic/Immunologic: medication allergies All other systems reviewed and negative, or as documented in HPI. Physical exam General: Well appearing, awake and alert, NAD. HEENT: NCAT, PERRL, EOMI, clear conjunctiva, anicteric, moist mucus membranes, clear oropharynx, no oral lesions.. normal phonation. uvula midline. pt deferred TM/auditory canal check. dentition intact, gums appear normal, no bleeding or deformities. Neck: neck supple, FROM Resp: CTAB, normal and even respirations, no respiratory distress CVS: RRR, no murmurs, 2+ peripheral pulses throughout, no peripheral edema Abdomen: soft, NTND, no rebound or guarding. Back: nontender, normal inspection and ROM MSK: no edema, XIAO x4, ROM intact. No clubbing or cyanosis. normal bulk and tone. Extremities: no calf tenderness Neuro: alert, oriented appropriately; Cranial nerve V1-3 hyperesthesia/ decreased sensation simulataneous to palp (chronic), 5/5 masseter, CN VII grossly intact, no droop. tongue midline, uvula midline, 5/5 shoulder shrug. Psych: Calm and cooperative Skin: warm and well perfused, cap refill <2 sec, normal color, no rash or skin discoloration. Past History - Past Medical History Allergies/Adverse Reactions: Allergies Allergy/AdvReac Type Severity Reaction Status Date / Time ciprofloxacin [From Cipro] Allergy Severe Difficulty Verified 06/20/19 10:37 Breathing ciprofloxacin HCl Allergy Severe Difficulty Verified 04/19/19 07:40 [From Cipro] Breathing codeine Allergy Severe Difficulty Verified 04/19/19 07:40 Breathing metronidazole [From Flagyl] Allergy Severe Difficulty Verified 04/19/19 07:40 Breathing Sulfa (Sulfonamide Allergy Severe Difficulty Verified 04/19/19 07:40 Antibiotics) Breathing sulfamethoxazole Allergy Severe Difficulty Verified 04/19/19 07:40 [From Septra] Breathing trimethoprim [From Septra] Allergy Severe Difficulty Verified 04/19/19 07:40 Breathing levofloxacin [From Levaquin] Allergy Verified 04/19/19 07:40 iv contrast Allergy Unknown Uncoded 11/17/18 19:19 Home Medications: Ambulatory Orders Esomeprazole Magnesium [Nexium 24Hr] 40 mg PO HS 06/06/18 Fluticasone Prop 0.05% Nasal [Flonase -] 1 spray NS DAILY #1 bot 04/19/19 Ondansetron [Zofran -] 4 mg PO TID PRN #6 tablet 06/21/19 Tramadol HCl 50 mg PO QID PRN #10 tablet MDD 4 06/21/19 COPD: No CHF: No DVT: No GI Disorders: Yes (ACID REFLUX, GALLSTONES, H. PYLORI,IBS) Other medical history: FACIAL NEURALGIA - Surgical History Cholecystectomy: Yes - Immunization History Immunization Up to Date: No - Psycho Social/Smoking Cessation Hx Smoking History: Never smoked Have you smoked in the past 12 months: No Number of Cigarettes Smoked Daily: 0 Hx Alcohol Use: No Drug/Substance Use Hx: No Substance Use Type: None *Physical Exam - Vital Signs Last Vital Signs Temp Pulse Resp BP Pulse Ox 97.9 F 58 L 16 128/83 99 06/21/19 07:14 06/21/19 07:14 06/21/19 07:14 06/21/19 07:14 06/21/19 07:14 Medical Decision Making - Medical Decision Making 06/21/19 08:10 Vital Signs Temp Pulse Resp BP Pulse Ox 97.9 F 58 L 16 128/83 99 06/21/19 07:14 06/21/19 07:14 06/21/19 07:14 06/21/19 07:14 06/21/19 07:14 74-year-old female with history of trigeminal neuralgia presenting with acute on chronic symptoms, has had several ED visits most recently yesterday for similar complaints. She has been given appropriate analgesia, neuro intact, airway intact, breathing comfortably, no other systemic features or complaints. no infectious symptoms, dental exam wnl, oral mucosa wnl, appears well hydrated and nourished. HEENT exam is unremarkable except for the left facial hyperesthesia and george mitten numbness. Patient does not allow me to look in her ear canal or to fully palpate her face but with a limited examination is noted to have her exacerbation of her trigeminal neuralgia. Will provide analgesia, patient states Toradol works so we will try another dose. Zofran for nausea, Tylenol for additional analgesia and tramadol for severe pain. Patient is okay with the regimen will trial and follow-up with primary care doctor, as well as her pain specialist/neurologist when she has established care. Minimize stressors and precipitating factors, continue with pured food diet and diet compliance, discharged stable condition, return precautions provided. 06/21/19 08:13 Discharge - Discharge Information Problems reviewed: Yes Clinical Impression/Diagnosis: Facial pain Condition: Stable Disposition: HOME - Admission No - Additional Discharge Information Prescriptions: Ondansetron [Zofran -] 4 mg PO TID PRN #6 tablet PRN Reason: Nausea Tramadol HCl 50 mg PO QID PRN #10 tablet MDD 4 PRN Reason: Severe Pain - Follow up/Referral Referrals: Shyam Jo MD [Staff Physician] - Ronnell Buckner MD [Staff Physician] - Luis Alberto Ortiz MD [Staff Physician] - - Patient Discharge Instructions Patient Printed Discharge Instructions: DI for Trigeminal Neuralgia Additional Instructions: 1) Please follow-up with your primary care doctor in the next 1-2 days. Please call tomorrow for for any urgent issues. neurology followup given to you as well. 2) If you have any worsening of symptoms or any other concerns please return to the ED immediately. Return if worsening symptoms including fevers, headache, vomiting, visual or hearing disturbances, abdominal pain, chest pain, shortness of breath, syncope, dehydration, inability to take things by mouth/vomiting, altered mental status, or worsening concerning symptoms. 3) Please continue taking your home medications as directed. your medications on discharge include tramadol 4 times a day as needed for severe pain . side effects may include upset stomach, abdominal pain, vomiting, or diarrhea. do not drink alcohol with your medications. this can cause you to feel sleepy, so avoid driving or operating machinery. zofran three times a day as needed for nausea Stay well hydrated and rest adequately. Make an appointment. If you cannot follow-up with your primary care doctor please return to the ED - Post Discharge Activity
[2019-06-21] MEDS ORDERED: ACETAMINOPHEN 325 MG TABLET (FP) PO ONE (07:43)
[2019-06-21] MEDS ORDERED: diphenhydrAMINE HCL 25 MG CAPSULE (FP) PO ONE (07:44)
[2019-06-21] MEDS ORDERED: ONDANSETRON *ODT* 4 MG TABLET SL ONE (07:44)
[2019-06-21] MEDS ORDERED: KETOROLAC TROMETHAMINE 30 MG/1 ML VIAL IM ONE (07:44)
[2019-06-21] MEDS ORDERED: traMADol HCL 50 MG TABLET PO ONE (07:57)
[2019-06-21] MEDS ORDERED: traMADol HCL 50 MG TABLET ONE (08:08)
[2019-06-21] MEDS ORDERED: KETOROLAC TROMETHAMINE 30 MG/1 ML VIAL ONE (08:08)
[2019-06-21] MEDS ORDERED: ACETAMINOPHEN 325 MG TABLET (FP) ONE (08:08)
[2019-06-21] MEDS ORDERED: ONDANSETRON *ODT* 4 MG TABLET ONE (08:08)
== END 2019-06-21 08:16 | disposition home or self-care (01) ==
LOC: FER 07:13
DX: G50.1 Atypical facial pain (principal); G50.0 Trigeminal neuralgia; K21.9 Gastro-esophageal reflux disease without esophagitis; K58.9 Irritable bowel syndrome, unspecified; M26.609 Unspecified temporomandibular joint disorder, unspecified side; Z88.1 Allergy status to other antibiotic agents; Z88.6 Allergy status to analgesic agent; Z88.8 Allergy status to other drugs, medicaments and biological substances
CPT/HCPCS: 99281-25; Q0162

== ENCOUNTER 2019-07-17 12:48 | Emergency (ER) | payer OTHER, BC, MEDICARE ==
[2019-07-17 13:06] VITALS: BP 130/80; PULSE 78; TEMP 98.1; BMI 20.9
--- NOTE | 2019-07-17 13:38 | PDOC ---
History of Present Illness - General Chief Complaint: Pain Stated Complaint: RIGHT HAND PAIN History Source: Patient Exam Limitations: No Limitations - History of Present Illness Initial Comments: 07/17/19 13:08 74 yo F with h/;o trigeminal nueralgia, chronic facial pain, here with c/o right wrist pain . recently had trigger release middle fingers here with pain in hand following occupational therapy at the base of the thumb. feels the physical therapist may have manipulated her hand to aggresively. feels it looks swollen. no f/c no exudate. does have a small tear between thumb and index finger which she has had since the bandage was removed. no redness. no f/c no other complaints. sutures are intact to palmar aspect. Past History - Past Medical History Allergies/Adverse Reactions: Allergies Allergy/AdvReac Type Severity Reaction Status Date / Time ciprofloxacin [From Cipro] Allergy Severe Difficulty Verified 06/20/19 10:37 Breathing ciprofloxacin HCl Allergy Severe Difficulty Verified 04/19/19 07:40 [From Cipro] Breathing codeine Allergy Severe Difficulty Verified 04/19/19 07:40 Breathing metronidazole [From Flagyl] Allergy Severe Difficulty Verified 04/19/19 07:40 Breathing Sulfa (Sulfonamide Allergy Severe Difficulty Verified 04/19/19 07:40 Antibiotics) Breathing sulfamethoxazole Allergy Severe Difficulty Verified 04/19/19 07:40 [From Septra] Breathing trimethoprim [From Septra] Allergy Severe Difficulty Verified 04/19/19 07:40 Breathing levofloxacin [From Levaquin] Allergy Verified 04/19/19 07:40 iv contrast Allergy Unknown Uncoded 11/17/18 19:19 Home Medications: Ambulatory Orders Esomeprazole Magnesium [Nexium 24Hr] 40 mg PO HS 06/06/18 Ondansetron [Zofran -] 4 mg PO TID PRN #6 tablet 06/21/19 Tramadol HCl 50 mg PO QID PRN #10 tablet MDD 4 06/21/19 COPD: No CHF: No DVT: No GI Disorders: Yes (ACID REFLUX, GALLSTONES, H. PYLORI,IBS) Other medical history: TRIGEMINAL NEURALGIA - Surgical History Cholecystectomy: Yes - Immunization History Immunization Up to Date: No - Psycho Social/Smoking Cessation Hx Smoking History: Never smoked Have you smoked in the past 12 months: No Number of Cigarettes Smoked Daily: 0 Hx Alcohol Use: No Drug/Substance Use Hx: No Substance Use Type: None Review of Systems - Review of Systems Constitutional: No: Chills, Diaphoresis HEENTM: No: Eye Pain Respiratory: No: Cough, Orthopnea, Shortness of Breath Cardiac (ROS): No: Chest Pain, Edema ABD/GI: No: Abdominal Distended : No: Burning, Dysuria Musculoskeletal: Yes: Joint Pain Integumentary: Yes: Bruising Neurological: Yes: Paresthesia, Other (trigeminal neuralgia) All Other Systems: Reviewed and Negative *Physical Exam - Vital Signs Last Vital Signs Temp Pulse Resp BP Pulse Ox 98.1 F 78 16 130/80 100 07/17/19 12:50 07/17/19 12:50 07/17/19 12:50 07/17/19 12:50 07/17/19 12:50 - Physical Exam 07/17/19 13:39 awake alert lungs clear bilat heart rrr no mrg wrist with mild eccymosis base thumb. small superficial skin crack between thumb and index finger. no active bleeding. no erythema. no redness. no warmth. no swelling appreciated. sutures over palmar aspect hand cdi. ED Treatment Course - RADIOLOGY Radiology Studies Ordered: Category Date Time Status HAND- RIGHT [RAD] Stat Radiology 07/17/19 13:08 Ordered Medical Decision Making - Medical Decision Making 07/17/19 13:40 s/p trigger finger release with pain following occupational therapy. no current signs of infection likely strain to cmc joint post op pain. plan xray. likely dc home nsaids. has fu with ortho surgeon in 4 days. 07/17/19 14:04 xray negative for fx. will dc home. Discharge - Discharge Information Problems reviewed: Yes Clinical Impression/Diagnosis: Wrist strain Condition: Good Disposition: HOME - Admission No - Follow up/Referral Referrals: Derek Monroy MD [Primary Care Provider] - - Patient Discharge Instructions Patient Printed Discharge Instructions: DI for Wrist Pain Additional Instructions: you can take ibuprofen 600 mg every 8 hours as needed for pain. follow up with your surgeon as scheduled for 08/21/18. return for any problems or concerns. continue to put bacitracin to the small skin tear between your thumb and index finger. your xrays are negative today. - Post Discharge Activity
[2019-07-17] MEDS ORDERED: IBUPROFEN 600 MG TABLET (FP) PO ONE ×2 (13:41→13:43)
== END 2019-07-17 14:20 | disposition home or self-care (01) ==
LOC: FER 12:48
DX: S63.501A Unspecified sprain of right wrist, initial encounter (principal); X58.XXXA Exposure to other specified factors, initial encounter; Y93.9 Activity, unspecified; Y92.9 Unspecified place or not applicable; Z88.1 Allergy status to other antibiotic agents; Z88.2 Allergy status to sulfonamides; Z88.5 Allergy status to narcotic agent; Z91.041 Radiographic dye allergy status; K21.9 Gastro-esophageal reflux disease without esophagitis
CPT/HCPCS: 73130-TC-RT-FY; 99282-25

== ENCOUNTER 2019-08-17 01:38 | Emergency (ER) | payer OTHER, BC, MEDICARE ==
--- NOTE | 2019-08-17 01:43 | PDOC ---
History of Present Illness - General Chief Complaint: Pain Stated Complaint: LLQ PAIN Time Seen by Provider: 08/17/19 01:41 History Source: Patient Exam Limitations: No Limitations - History of Present Illness Initial Comments: 08/17/19 01:41 This is a 74-year-old female who comes in complaining of acute onset of left lower quadrant abdominal pain a few hours ago associated with some cold sweats and no nausea, vomiting or diarrhea. Patient otherwise has history of some chronic pain for which he takes Toradol. Patient denies dysuria fevers or chills. Patient denies any cough or congestion. Patient is taking amoxicillin for a sinus infection. Allergies: as per nursing notes Past Medical History: none Social history: Lives with family. No smoking. No alcohol. No illicit drugs. Surgical history: None General: No fevers or chills, no weakness, no weight loss HEENT: No change in vision. No sore throat,. No ear pain CardioVascular: no chest discomfort. No shortness of breath Respiratory:No cough, or wheezing. Gastrointestinal: no nausea, vomiting, diarrhea or constipation, No rectal bleeding, left lower quadrant abdominal pain Genitourinary: No dysuria, hematuria, or frequency Musculoskeletal: No joint or muscle pain or swelling Neurologic: No headache, vertigo, dizziness or loss of consciousness Psychiatric: nor depression Skin: No rashes or easy bruising Endocrine: no increased thirst or abnormal weight change Allergic: no skin or latex allergy All other systems reviewed and normal Exam: General: Well-nourished well-developed individual, no acute distress HEENT: Throat: Normal, tonsils normal, no erythema or exudate Neck: Supple, no meningeal signs, no lymphadenopathy Eyes::Pupils equal reactive and round, extraocular motion intact Chest: Nontender to palpation Cardiac: S1-S2 normal, regular rate and rhythm, no murmurs rubs or gallops Respiratory: Lungs clear to auscultation bilateral Abdomen: Soft, nondistended, normal bowel sounds, there is no tenderness on palpation diffusely Extremities: Warm, dry, no cyanosis, clubbing, or edema Skin: No rashes Neuro: Alert and oriented x3, CN II - XII intact, nonfocal exam with normal strength, normal sensation, normal reflexes, normal gait, Psych: Normal mood and affect 08/17/19 02:53 X-ray shows moderate amount of stool but otherwise no acute pathology. 08/17/19 03:19 Assessment and plan: This is a 74-year-old female who comes in complaining of left lower quadrant abdominal pain. Patient had a work-up that was negative for any acute pathology. There was some moderate amount of constipation. Patient was encouraged to increase fiber in her diet and take some MiraLAX. Patient discharged we will follow-up with her primary care doctor. Past History - Past Medical History Allergies/Adverse Reactions: Allergies Allergy/AdvReac Type Severity Reaction Status Date / Time ciprofloxacin [From Cipro] Allergy Severe Difficulty Verified 08/17/19 01:57 Breathing ciprofloxacin HCl Allergy Severe Difficulty Verified 08/17/19 01:57 [From Cipro] Breathing codeine Allergy Severe Difficulty Verified 08/17/19 01:57 Breathing metronidazole [From Flagyl] Allergy Severe Difficulty Verified 08/17/19 01:57 Breathing Sulfa (Sulfonamide Allergy Severe Difficulty Verified 08/17/19 01:57 Antibiotics) Breathing sulfamethoxazole Allergy Severe Difficulty Verified 08/17/19 01:57 [From Septra] Breathing trimethoprim [From Septra] Allergy Severe Difficulty Verified 08/17/19 01:57 Breathing levofloxacin [From Levaquin] Allergy Verified 08/17/19 01:57 iv contrast Allergy Unknown Uncoded 08/17/19 01:57 Home Medications: Ambulatory Orders Esomeprazole Magnesium [Nexium 24Hr] 40 mg PO HS 06/06/18 COPD: No CHF: No DVT: No GI Disorders: Yes (ACID REFLUX, GALLSTONES, H. PYLORI,IBS) - Surgical History Cholecystectomy: Yes - Immunization History Immunization Up to Date: No - Psycho Social/Smoking Cessation Hx Smoking History: Never smoked Have you smoked in the past 12 months: No Number of Cigarettes Smoked Daily: 0 Hx Alcohol Use: No Drug/Substance Use Hx: No Substance Use Type: None ED Treatment Course - LABORATORY CBC & Chemistry Diagram: 08/17/19 01:50 08/17/19 01:50 Discharge - Discharge Information Problems reviewed: Yes Clinical Impression/Diagnosis: Abdominal pain Condition: Stable Disposition: HOME - Admission No - Follow up/Referral - Patient Discharge Instructions Additional Instructions: Your x-ray shows that there is probably some constipation that is contributing to your pain. Increase the fiber in your diet and get an [id number] laxative such as MiraLAX and take as directed. Return to the emergency department immediately with ANY new, persistent or worsening symptoms. Continue any medications as previously prescribed by your physician. You should follow up with your primary doctor as soon as possible regarding today's emergency department visit. . Please make sure your doctor reviews the results of your emergency evaluation. Thank you for coming to the Emergency Department today for your care. It was a pleasure to see you today. Please note that your evaluation is INCOMPLETE until you follow-up with your doctor. - Post Discharge Activity
[2019-08-17 01:49] VITALS: BP 138/86; PULSE 78; TEMP 97.7; BMI 20.9
[2019-08-17 02:22] LABS: BASO % 1.1 % (0-2.0); EOS % 1.8 % (0-4.5); HEMATOCRIT 40.3 % (32.4-45.2); HEMOGLOBIN 13.8 GM/dL (10.7-15.3); LYMPH % 27.6 % (8-40); MCH 30.4 pg (25.7-33.7); MCHC 34.2 g/dl (32.0-36.0); MEAN PLT VOLUME 9.2 fl (7.5-11.1); MONO % 7.9 % (3.8-10.2); NEUT % 61.6 % (42.8-82.8); PLATELET COUNT 193 K/MM3 (134-434); RBC 4.53 M/mm3 (3.60-5.2); RDW 13.1 % (11.6-15.6); WHITE BLOOD COUNT 5.2 K/mm3 (4.0-10.0)
[2019-08-17 02:24] LABS: URINE APPEARANCE Clear; URINE BILIRUBIN Negative (NEGATIVE); URINE COLOR Yellow; URINE GLUCOSE (UA) Negative (NEGATIVE); URINE KETONE Negative (NEGATIVE); URINE LEUK ESTERASE 1+ (NEGATIVE); URINE NITRITE Negative (NEGATIVE); URINE PROTEIN 1+ (NEGATIVE); URINE UROBILINOGEN 0.2 mg/dL (0.2-1.0)
[2019-08-17 02:50] LABS: EPI CELLS 5.1 /HPF (0-5/HPF); URINE BACTERIA 18.1 /hpf (NEGATIVE); URINE WBC 7.2 /hpf (0-5)
[2019-08-17 02:53] LABS: ALBUMIN 3.5 g/dl (3.4-5.0); BILIRUBIN,TOTAL 0.3 mg/dL (0.2-1); BLOOD UREA NITROGEN 11.5 mg/dL (7-18); CALCIUM 8.4 mg/dL (8.5-10.1); CREATININE 0.5 mg/dL (0.55-1.3); POTASSIUM 3.5 mmol/L (3.5-5.1); TOT PROT 6.5 g/dl (6.4-8.2)
== END 2019-08-17 03:01 | disposition home or self-care (01) ==
LOC: FER 01:38
DX: R10.9 Unspecified abdominal pain (principal); Z88.8 Allergy status to other drugs, medicaments and biological substances; Z88.6 Allergy status to analgesic agent; K21.9 Gastro-esophageal reflux disease without esophagitis
CPT/HCPCS: 36415; 74019-TC-FY; 80053; 81003; 83690; 85025; 87077; 87086; 99282-25

== ENCOUNTER 2019-09-09 13:38 | Emergency (ER) | payer OTHER, BC, MEDICARE ==
[2019-09-09 13:53] VITALS: BP 139/82; PULSE 75; TEMP 98.5; BMI 21.1
--- NOTE | 2019-09-09 13:58 | PDOC ---
History of Present Illness - General Chief Complaint: Pain Stated Complaint: LEFT FACIAL PAIN Time Seen by Provider: 09/09/19 13:57 - History of Present Illness Initial Comments: 09/09/19 15:13 Chief complaint: Exacerbation of left facial pain of trigeminal neuralgia since this morning HPI: Pain left side of face without any other symptoms. Usual pattern. Seen frequently in the emergency room for exacerbations and responds well to benzodiazepines. Allergic to codeine and other narcotics. Review of systems: No other visual or focal neurologic symptoms, unsteadiness of gait. There is mild nausea. Past medical history: Trigeminal neuralgia, longstanding, with frequent flareups , usually result of stress Social/family history: Increased stress, otherwise negative Physical exam: Alert and oriented, well-developed well-nourished, no acute distress, cheerful and cooperative Afebrile, vital signs normal Neurological C2 to 12 intact. Strength full and symmetric. No focal sensory or motor deficits. Gait stable and unimpaired HEENT normal Neck supple without bruit mass or nodes Chest clear CV regular without murmur rub or gallop Abdomen benign Impression: Flareup of trigeminal neuralgia, probably the result of stress. Mild accompanying nausea which is also frequently experienced Plan: Symptomatic treatment with benzodiazepines and Zofran. Much improved, with pain resolving and no further nausea. Fully ambulatory, cheerful, and upbeat at discharge with her . Follow-up with primary physician. Past History - Past Medical History Allergies/Adverse Reactions: Allergies Allergy/AdvReac Type Severity Reaction Status Date / Time ciprofloxacin [From Cipro] Allergy Severe Difficulty Verified 09/09/19 13:40 Breathing ciprofloxacin HCl Allergy Severe Difficulty Verified 09/09/19 13:40 [From Cipro] Breathing codeine Allergy Severe Difficulty Verified 09/09/19 13:40 Breathing metronidazole [From Flagyl] Allergy Severe Difficulty Verified 09/09/19 13:40 Breathing Sulfa (Sulfonamide Allergy Severe Difficulty Verified 09/09/19 13:40 Antibiotics) Breathing sulfamethoxazole Allergy Severe Difficulty Verified 09/09/19 13:40 [From Septra] Breathing trimethoprim [From Septra] Allergy Severe Difficulty Verified 09/09/19 13:40 Breathing levofloxacin [From Levaquin] Allergy Verified 09/09/19 13:40 iv contrast Allergy Unknown Uncoded 09/09/19 13:40 Home Medications: Ambulatory Orders Amoxicillin 1 tab PO DAILY 09/09/19 Gatifloxacin 1 drop OU TID 09/09/19 COPD: No CHF: No DVT: No GI Disorders: Yes (ACID REFLUX, GALLSTONES, H. PYLORI,IBS) - Surgical History Cholecystectomy: Yes - Immunization History Immunization Up to Date: No - Psycho Social/Smoking Cessation Hx Smoking History: Never smoked Have you smoked in the past 12 months: No Number of Cigarettes Smoked Daily: 0 Information on smoking cessation initiated: No Hx Alcohol Use: No Drug/Substance Use Hx: No Substance Use Type: None *Physical Exam - Vital Signs Last Vital Signs Temp Pulse Resp BP Pulse Ox 98.5 F 75 16 139/82 100 09/09/19 13:39 09/09/19 13:39 09/09/19 13:39 09/09/19 13:39 09/09/19 13:39 Discharge - Discharge Information Problems reviewed: Yes Clinical Impression/Diagnosis: Trigeminal neuralgia of left side of face Condition: Improved Disposition: HOME - Admission No - Follow up/Referral - Patient Discharge Instructions Patient Printed Discharge Instructions: DI for Trigeminal Neuralgia - Post Discharge Activity
[2019-09-09] MEDS ORDERED: ONDANSETRON *ODT* 4 MG TABLET SL ONE (14:04)
[2019-09-09] MEDS ORDERED: diazePAM 2 MG TABLET PO ONE (14:04)
[2019-09-09] MEDS ORDERED: diazePAM 2 MG TABLET ONE (14:29)
[2019-09-09] MEDS ORDERED: ONDANSETRON *ODT* 4 MG TABLET ONE (14:29)
== END 2019-09-09 15:07 | disposition home or self-care (01) ==
LOC: FER 13:38
DX: G50.0 Trigeminal neuralgia (principal); Z88.8 Allergy status to other drugs, medicaments and biological substances; Z88.6 Allergy status to analgesic agent; K21.9 Gastro-esophageal reflux disease without esophagitis
CPT/HCPCS: 99283-25; Q0162

== ENCOUNTER 2019-10-12 15:49 | Emergency (ER) | payer OTHER, BC, MEDICARE ==
[2019-10-12 16:12] VITALS: BP 125/69; PULSE 91; TEMP 98.1; BMI 21.2
[2019-10-12] MEDS ORDERED: SODIUM CHLORIDE 0.9% 1000 ML INFUS.BAG IV ONE (16:38)
[2019-10-12] MEDS ORDERED: ONDANSETRON 4 MG/2 ML VIAL IVPUSH ONE ×2 (16:38→17:29)
[2019-10-12] MEDS ORDERED: MECLIZINE HCL 25 MG TABLET (FP) PO ONE (16:38)
[2019-10-12] MEDS ORDERED: MECLIZINE HCL 25 MG TABLET (FP) ONE (16:50)
[2019-10-12] MEDS ORDERED: LORazepam 2 MG/ML SDV VIAL ONE (16:50)
[2019-10-12] MEDS ORDERED: ONDANSETRON 4 MG/2 ML VIAL ONE ×2 (16:50→17:33)
[2019-10-12 17:09] LABS: EOS % 1.5 % (0-4.5); HEMATOCRIT 41.7 % (32.4-45.2); HEMOGLOBIN 13.6 GM/dl (10.7-15.3); MCH 29.6 pg (25.7-33.7); MCHC 32.7 g/dl (32.0-36.0); MEAN CELL VOLUME 90.4 fl (80-96); MEAN PLT VOLUME 9.2 fl (7.5-11.1); MONO % 5.8 % (3.8-10.2); NEUT % 68.7 % (42.8-82.8); PLATELET COUNT 198 K/MM3 (134-434); RBC 4.62 M/mm3 (3.60-5.2); RDW 12.7 % (11.6-15.6); WHITE BLOOD COUNT 4.9 K/mm3 (4.0-10.8)
[2019-10-12 17:21] LABS: ALBUMIN 3.7 g/dl (3.4-5.0); BILIRUBIN,TOTAL 0.7 mg/dl (0.2-1); CALCIUM 8.9 mg/dl (8.5-10); CREATININE 0.5 mg/dl (0.55-1.3); POTASSIUM 3.8 mmol/L (3.5-5.1); TOT PROT 6.4 g/dl (6.4-8.2)
[2019-10-12] MEDS ORDERED: diazePAM 2 MG TABLET PO ONE (17:28)
--- NOTE | 2019-10-12 17:28 | PDOC ---
History of Present Illness - General Chief Complaint: Lightheaded Stated Complaint: DIZZY Time Seen by Provider: 10/12/19 16:27 History Source: Patient Exam Limitations: No Limitations - History of Present Illness Initial Comments: 74 year old female with PMH IBS, GERD, cholelithiasis presented to ED for room spinning dizziness sensation occurring today. 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 She admitted to nausea, denied vomiting. She reported she finished antibiotics Saturday (for pharyngitis), had multiple episodes of loose stool yesterday. ROS General: denied fever, chills, generalized weakness. HEENT: denied sore throat, rhinorrhea, ear pain. Cardiovascular: denied chest pain, palpitations, syncope, diaphoresis. Respiratory: denied shortness of breath, cough, sputum production, hemoptysis. Gastrointestinal: admitted to nausea, diarrhea. denied abdominal pain, vomiting, constipation, blood in stool. Genitourinary: denied dysuria, increased urinary frequency, hematuria, urinary incontinence, flank pain. Back: denied back pain. Musculoskeletal: denied joint pain, muscle pain, joint swelling. Neurological: admitted to dizziness. denied headache, numbness, tingling, w eakness. Integumentary: denied rash, laceration, abrasion. Hematologic/Lymphatic: denied bruising or bleeding. PE Constitutional: Well-nourished, Well-developed, appearing stated age. HEENT: head is normocephalic, atraumatic. EOMI. PERRLA. no nystagmus. Neck: supple. Full ROM. Cardiovascular: regular heart rhythm. Normal S1 and S2. no murmurs. Respiratory: clear to auscultation bilaterally. no crackles, rhonchi or wheezing. no stridor. speaking full sentences. Gastrointestinal: soft, flat, nontender. normal bowel sounds. no rebound, guarding, or masses. Extremities: peripheral pulses intact and equal. no lower extremity edema noted. Neurological: CN 2-12 grossly intact. 5/5 strength all extremities. Psych: awake, alert, oriented x3. follows commands. answers questions appropriately. Past History - Past Medical History Allergies/Adverse Reactions: Allergies Allergy/AdvReac Type Severity Reaction Status Date / Time ciprofloxacin [From Cipro] Allergy Severe Difficulty Verified 10/12/19 15:50 Breathing ciprofloxacin HCl Allergy Severe Difficulty Verified 10/12/19 15:50 [From Cipro] Breathing codeine Allergy Severe Difficulty Verified 10/12/19 15:50 Breathing metronidazole [From Flagyl] Allergy Severe Difficulty Verified 10/12/19 15:50 Breathing Sulfa (Sulfonamide Allergy Severe Difficulty Verified 10/12/19 15:50 Antibiotics) Breathing sulfamethoxazole Allergy Severe Difficulty Verified 10/12/19 15:50 [From Septra] Breathing trimethoprim [From Septra] Allergy Severe Difficulty Verified 10/12/19 15:50 Breathing levofloxacin [From Levaquin] Allergy Verified 10/12/19 15:50 iv contrast Allergy Unknown Uncoded 10/12/19 15:50 Home Medications: Ambulatory Orders Esomeprazole Magnesium [Nexium 24Hr] 40 mg PO DAILY 10/12/19 Meclizine HCl 25 mg PO TID PRN #9 tab.chew 10/12/19 Ondansetron [Zofran Odt -] 4 mg SL TID #9 od.tablet 10/12/19 Other medical history: TRIGEMINAL NEURALIGIA - Surgical History Cholecystectomy: Yes - Immunization History Immunization Up to Date: No - Psycho Social/Smoking Cessation Hx Smoking History: Never smoked Have you smoked in the past 12 months: No Number of Cigarettes Smoked Daily: 0 Information on smoking cessation initiated: No Hx Alcohol Use: No Drug/Substance Use Hx: No Substance Use Type: None *Physical Exam - Vital Signs Last Vital Signs Temp Pulse Resp BP Pulse Ox 98.1 F 91 H 18 125/69 99 10/12/19 15:49 10/12/19 15:49 10/12/19 15:49 10/12/19 15:49 10/12/19 15:49 ED Treatment Course - LABORATORY CBC & Chemistry Diagram: 10/12/19 16:56 10/12/19 16:56 - ADDITIONAL ORDERS Additional order review: Laboratory Results 10/12/19 16:56 Sodium 136 Potassium 3.8 Chloride 103 Carbon Dioxide 24 Anion Gap 9 BUN 17.0 Creatinine 0.5 L Est GFR (CKD-EPI)AfAm 112.07 Est GFR (CKD-EPI)NonAf 96.69 Random Glucose 139 H Calcium 8.9 Total Bilirubin 0.7 AST 13 L ALT 11 L Alkaline Phosphatase 69 Total Protein 6.4 Albumin 3.7 10/12/19 16:56 RBC 4.62 MCV 90.4 MCHC 32.7 RDW 12.7 MPV 9.2 Neutrophils % 68.7 Lymphocytes % 23.0 Monocytes % 5.8 Eosinophils % 1.5 Basophils % 1.0 - Medications Given in the ED: ED Medications Discontinued Medications Generic Name Dose Route Start Last Admin Trade Name Doyle PRN Reason Stop Dose Admin Lorazepam 0.5 mg 10/12/19 16:38 10/12/19 17:00 Ativan Injection - IVPUSH 10/12/19 16:39 Not Given ONCE ONE Meclizine HCl 25 mg 10/12/19 16:38 10/12/19 17:00 Antivert - PO 10/12/19 16:39 25 mg ONCE ONE Administration Ondansetron HCl 4 mg 10/12/19 16:38 10/12/19 17:00 Zofran Injection IVPUSH 10/12/19 16:39 4 mg ONCE ONE Administration Sodium Chloride 1,000 ml 10/12/19 16:38 10/12/19 17:00 Normal Saline - IV 10/12/19 16:39 1,000 ml ONCE ONE Administration Medical Decision Making - Medical Decision Making 74 year old female with above PMH presented to ED for room spinning sensation associated with nausea. Initial Vital Signs Temp Pulse Resp BP Pulse Ox 98.1 F 91 H 18 125/69 99 10/12/19 15:49 10/12/19 15:49 10/12/19 15:49 10/12/19 15:49 10/12/19 15:49 Afebrile. No tachycardia. No tachypnea. No hypotension. No hypoxia on room air. EKG performed at 1651: rate 68, regular rhythm, normal axis, normal intervals, QTc 429, no acute ST changes . Laboratory Last Values WBC 4.9 K/mm3 (4.0-10.8) 10/12/19 16:56 RBC 4.62 M/mm3 (3.60-5.2) 10/12/19 16:56 Hgb 13.6 GM/dl (10.7-15.3) 10/12/19 16:56 Hct 41.7 % (32.4-45.2) 10/12/19 16:56 MCV 90.4 fl (80-96) 10/12/19 16:56 MCH 29.6 pg (25.7-33.7) 10/12/19 16:56 MCHC 32.7 g/dl (32.0-36.0) 10/12/19 16:56 RDW 12.7 % (11.6-15.6) 10/12/19 16:56 Plt Count 198 K/MM3 (134-434) 10/12/19 16:56 MPV 9.2 fl (7.5-11.1) 10/12/19 16:56 Absolute Neuts (auto) 3.3 K/mm3 10/12/19 16:56 Neutrophils % 68.7 % (42.8-82.8) 10/12/19 16:56 Lymphocytes % 23.0 % (8-40) 10/12/19 16:56 Monocytes % 5.8 % (3.8-10.2) 10/12/19 16:56 Eosinophils % 1.5 % (0-4.5) 10/12/19 16:56 Basophils % 1.0 % (0-2.0) 10/12/19 16:56 Sodium 136 mmol/L (136-145) 10/12/19 16:56 Potassium 3.8 mmol/L (3.5-5.1) 10/12/19 16:56 Chloride 103 mmol/L (98-107) 10/12/19 16:56 Carbon Dioxide 24 mmol/L (21-32) 10/12/19 16:56 Anion Gap 9 MMOL/L (8-16) 10/12/19 16:56 BUN 17.0 mg/dl (7-18) 10/12/19 16:56 Creatinine 0.5 mg/dl (0.55-1.3) L 10/12/19 16:56 Est GFR (CKD-EPI)AfAm 112.07 10/12/19 16:56 Est GFR (CKD-EPI)NonAf 96.69 10/12/19 16:56 Random Glucose 139 mg/dl (74-106) H 10/12/19 16:56 Calcium 8.9 mg/dl (8.5-10) 10/12/19 16:56 Total Bilirubin 0.7 mg/dl (0.2-1) 10/12/19 16:56 AST 13 U/L (15-37) L 10/12/19 16:56 ALT 11 U/L (13-61) L 10/12/19 16:56 Alkaline Phosphatase 69 U/L (45-117) 10/12/19 16:56 Troponin I < 0.03 ng/ml (0.00-0.05) 10/12/19 17:00 Total Protein 6.4 g/dl (6.4-8.2) 10/12/19 16:56 Albumin 3.7 g/dl (3.4-5.0) 10/12/19 16:56 No leukocytosis. No anemia. No clinically concerning electrolyte abnormalities. No DLEMY. No transaminitis. Troponin undetectable. Pt was given Zofran 4 mg IV once and Meclizine without full resolution of symptoms. Pt refused Ativan, but reported Versed is okay. Medications ordered: Zofran 4 mg IV once, Valium 2 mg PO once 10/12/19 18:14 CT head report: [place] Name: [facility] DEPARTMENT OF RADIOLOGY Phys: Zak Dumont MD : 1945 Age: 74 Sex: F [facility] Acct: [id number] Loc: [address] Exam Date: 10/12/19 Status: REG [place] [address] Unit Number: [id number] EXAM#: TYPE/EXAM: RESULT: [id number] CT/HEAD CT WITHOUT CONTRAST Cranial CT without contrast Clinical information: dizziness The exam consists of contiguous direct transaxial images. Intravenous contrast was not administered . No intracranial hemorrhage is seen. There is no extra-axial fluid collection. No discrete infarct is identified within the limitations of CT. There is no obvious mass lesion on noncontrast imaging. Incidental note is again made of a 1.5 cm cranial cyst with peripheral rim calcification. There is no obstructive hydrocephalus. Incidental note is again made of focal attenuation of the right parietal calvarium at the high convexity level probably on the basis of osteoporosis. Impression: No CT evidence of acute intracranial pathology. There has been no definite interval change in comparison to CT performed on 03/20/2015. Reported By: Yan Nye MD 10/12/191838 ZAK DUMONT Technologist: Serina Ervin Transcribed Date/Time: 10/12/191838 [employer] Functional Tester: Yan Nye Printed Date/Time: By: Pt reported improvement of symptoms. Will discharge with Zofran and Meclizine. Discharge - Discharge Information Problems reviewed: Yes Clinical Impression/Diagnosis: Dizziness, Nausea Condition: Stable Disposition: HOME - Admission No - Additional Discharge Information Prescriptions: Meclizine HCl 25 mg PO TID PRN #9 tab.chew PRN Reason: Vertigo Ondansetron [Zofran Odt -] 4 mg SL TID #9 od.tablet - Follow up/Referral - Patient Discharge Instructions Patient Printed Discharge Instructions: DI for Vertigo, DI for Anxiety -- Adult, How to Perform Audrey Maneuver Additional Instructions: Follow up with your primary care doctor within 3 days regarding your ER visit. Your care is not complete until you follow up. Bring all paperwork given to you today to your appointment. I have prescribed you Zofran for nausea/vomiting and Meclizine for dizziness. Take as advised on labels. Return to the Emergency Department for increasing pain, chest pain, shortness of breath, intractable vomiting, numbness, weakness, neck stiffness, visual changes, gait changes, speech changes, facial drooping or any other new, worsening or concerning symptoms. - Post Discharge Activity
[2019-10-12] MEDS ORDERED: diazePAM 2 MG TABLET ONE (17:33)
--- NOTE | 2019-10-12 18:31 | PDOC ---
Attending Attestation - Resident Resident Name: Val Fuentes - ED Attending Attestation I have performed the following: I have examined & evaluated the patient, The case was reviewed & discussed with the resident, I agree w/resident's findings & plan, Exceptions are as noted - HPI HPI: 10/16/19 16:15 74 year old female with PMH IBS, GERD, cholelithiasis presented to ED for room spinning dizziness sensation occurring today. 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, and then suddenly felt as if "the room was moving around" - Physicial Exam PE: 10/16/19 16:15 Vitals: Triage Vital signs reviewed General Appearance: No acute distress, well nourished well developed, Cardiac: Regular rate and rhythym, no murmurs, no rubs, no gallops, Lungs: Clear to auscultation bilateral, good air movement bilaterally, Abdomen: Soft, non distended, normal bowel sounds, non tender to palpation Extremities: Full range of motion to all extremities, no cyanosis, clubbing, or edema Skin: Warm and dry, no rashes or lesions, no rash, no petechiae Neuro: AOX3; cranial Nerves 2-12 grossly intact, strength intact to all extremities, sensation intact to all extremities, worsening sensation of spinning when turning head to the right Psych: Normal mood, normal affect - Medical Decision Making 10/16/19 16:15 History examination consistent with positional vertigo CT negative labs within normal limits status post meclizine and Valium patient feels better now able to ambulate with steady gait will discharge with course of meclizine neurology follow-up patient will return to ED for any persistent symptoms returning symptoms or for any concerns. Discharge - Discharge Information Problems reviewed: Yes Clinical Impression/Diagnosis: Dizziness, Nausea Condition: Stable Disposition: HOME - Admission No - Additional Discharge Information Prescriptions: Meclizine HCl 25 mg PO TID PRN #9 tab.chew PRN Reason: Vertigo Ondansetron [Zofran Odt -] 4 mg SL TID #9 od.tablet - Follow up/Referral - Patient Discharge Instructions Patient Printed Discharge Instructions: DI for Vertigo, DI for Anxiety -- Adult, How to Perform Audrey Maneuver Additional Instructions: Follow up with your primary care doctor within 3 days regarding your ER visit. Your care is not complete until you follow up. Bring all paperwork given to you today to your appointment. I have prescribed you Zofran for nausea/vomiting and Meclizine for dizziness. Take as advised on labels. Return to the Emergency Department for increasing pain, chest pain, shortness of breath, intractable vomiting, numbness, weakness, neck stiffness, visual changes, gait changes, speech changes, facial drooping or any other new, worsening or concerning symptoms. - Post Discharge Activity
--- NOTE | 2019-10-13 10:07 | EKG ---
Test Reason : Blood Pressure : / mmHG Vent. Rate : 068 BPM Atrial Rate : 068 BPM P-R Int : 142 ms QRS Dur : 092 ms QT Int : 404 ms P-R-T Axes : 038 041 047 degrees QTc Int : 429 ms NORMAL SINUS RHYTHM NORMAL ECG WHEN COMPARED WITH ECG OF 18-JUN-2017 12:55, NONSPECIFIC T WAVE ABNORMALITY NO LONGER EVIDENT IN ANTERIOR LEADS Confirmed by Adrien Peoples MD ([id number]) on 10/13/2019 10:06:42 AM Referred By: Confirmed By:Adrien Peoples MD
== END 2019-10-12 19:15 | disposition home or self-care (01) ==
LOC: FER 15:49
DX: R42 Dizziness and giddiness (principal); R11.2 Nausea with vomiting, unspecified
CPT/HCPCS: 36415; 70450-TC; 80053; 84484; 85025; 93005; 99284-25; J7030

== ENCOUNTER 2020-07-24 01:37 | Emergency (ER) | payer BC, MEDICARE, OTHER ==
[2020-07-24 01:41] VITALS: BP 151/89; PULSE 95; TEMP 97.7; BMI 21.1
[2020-07-24] MEDS ORDERED: ONDANSETRON *ODT* 4 MG TABLET SL ONE (02:15)
[2020-07-24] MEDS ORDERED: ONDANSETRON *ODT* 4 MG TABLET ONE (02:30)
== END 2020-07-24 04:11 | disposition home or self-care (01) ==
LOC: FER 01:37
DX: R11.0 Nausea (principal)
CPT/HCPCS: 99284-25; Q0162

== ENCOUNTER 2020-07-26 06:14 | Emergency (ER) | payer OTHER, MEDICARE, BC ==
[2020-07-26 06:21] VITALS: BP 136/88; PULSE 92; TEMP 97.7; BMI 21.4
[2020-07-26] MEDS ORDERED: KETOROLAC TROMETHAMINE 30 MG/1 ML VIAL IM ONE (06:28)
[2020-07-26] MEDS ORDERED: KETOROLAC TROMETHAMINE 60 MG/2 ML VIAL ONE (06:28)
== END 2020-07-26 06:35 | disposition home or self-care (01) ==
LOC: FER 06:14
PROC: 3E0233Z Introduction of Anti-inflammatory into Muscle, Percutaneous Approach (ICD-10-PCS; principal; 2020-07-26)
DX: S04.32XA Injury of trigeminal nerve, left side, initial encounter (principal); G50.1 Atypical facial pain
CPT/HCPCS: 99284-25

== ENCOUNTER 2020-07-31 07:18 | Emergency (ER) | payer OTHER, BC, MEDICARE ==
[2020-07-31 07:24] VITALS: BP 132/90; PULSE 76; TEMP 98; BMI 21.4
[2020-07-31 09:18] LABS: CALCIUM 8.9 mg/dl (8.5-10); CREATININE 0.5 mg/dl (0.55-1.3)
[2020-07-31] MEDS ORDERED: KETOROLAC TROMETHAMINE 30 MG/1 ML VIAL IM ONE (09:21)
[2020-07-31] MEDS ORDERED: KETOROLAC TROMETHAMINE 30 MG/1 ML VIAL ONE (09:26)
== END 2020-07-31 09:33 | disposition home or self-care (01) ==
LOC: FER 07:18
PROC: 3E0233Z Introduction of Anti-inflammatory into Muscle, Percutaneous Approach (ICD-10-PCS; principal; 2020-07-31)
DX: G50.0 Trigeminal neuralgia (principal)
CPT/HCPCS: 36415; 80048; 99284-25

== ENCOUNTER 2020-09-16 05:48 | Emergency (ER) | payer OTHER, MEDICARE, BC ==
[2020-09-16 05:58] VITALS: BP 134/94; PULSE 90; TEMP 97.7; BMI 21.4
[2020-09-16] MEDS ORDERED: MAG HYDROX/AL HYDROX/SIMETH 30 ML UNIT-DOSE CUP PO ONE (06:11)
[2020-09-16] MEDS ORDERED: ONDANSETRON 4 MG TABLET PO ONE (06:11)
[2020-09-16] MEDS ORDERED: MAG HYDROX/AL HYDROX/SIMETH 30 ML UNIT-DOSE CUP ONE (06:16)
[2020-09-16] MEDS ORDERED: ONDANSETRON *ODT* 4 MG TABLET ONE (06:16)
[2020-09-16 07:14] LABS: EOS % 0.7 % (0-4.5); HEMATOCRIT 40.4 % (32.4-45.2); HEMOGLOBIN 13.4 GM/dl (10.7-15.3); LYMPH % 28.3 % (8-40); MCH 29.1 pg (25.7-33.7); MCHC 33.2 g/dl (32.0-36.0); MEAN CELL VOLUME 87.7 fl (80-96); MEAN PLT VOLUME 8.9 fl (7.5-11.1); MONO % 7.8 % (3.8-10.2); NEUT % 62.2 % (42.8-82.8); PLATELET COUNT 188 K/MM3 (134-434); RBC 4.61 M/mm3 (3.60-5.2); RDW 12.7 % (11.6-15.6); WHITE BLOOD COUNT 4.4 K/mm3 (4.0-10.8)
[2020-09-16 07:24] LABS: ALBUMIN 3.7 g/dl (3.4-5.0); BILIRUBIN,TOTAL 0.6 mg/dl (0.2-1); CALCIUM 8.8 mg/dl (8.5-10); CREATININE 0.5 mg/dl (0.55-1.3); TOT PROT 6.3 g/dl (6.4-8.2)
== END 2020-09-16 09:40 | disposition home or self-care (01) ==
LOC: FER 05:48
DX: R14.0 Abdominal distension (gaseous) (principal); R10.9 Unspecified abdominal pain
CPT/HCPCS: 36415; 74019-TC-FY; 74176-TC; 80053; 82550; 83690; 84484; 85025; 93005; 99285-25

== ENCOUNTER 2020-10-02 01:47 | Emergency (ER) | payer OTHER, MEDICARE, BC ==
[2020-10-02 01:54] VITALS: BP 137/93; PULSE 102; BMI 21.4
[2020-10-02] MEDS ORDERED: ONDANSETRON *ODT* 4 MG TABLET SL ONE (03:01)
[2020-10-02] MEDS ORDERED: MECLIZINE HCL 25 MG TABLET (FP) PO ONE (03:03)
== END 2020-10-02 06:38 | disposition home or self-care (01) ==
LOC: FER 01:47
DX: R42 Dizziness and giddiness (principal)
CPT/HCPCS: 70450-TC; 99284-25; Q0162

== ENCOUNTER 2020-11-25 12:05 | Emergency (ER) | payer OTHER, BC, MEDICARE ==
[2020-11-25 12:17] VITALS: BP 147/93; PULSE 78; TEMP 98.1; BMI 21.4
[2020-11-25] MEDS ORDERED: ACETAMINOPHEN 325 MG TABLET (FP) PO ONE (12:25)
[2020-11-25] MEDS ORDERED: ACETAMINOPHEN 325 MG TABLET (FP) ONE (12:30)
== END 2020-11-25 14:51 | disposition home or self-care (01) ==
LOC: FER 12:05
DX: I62.01 Nontraumatic acute subdural hemorrhage (principal); S09.93XA Unspecified injury of face, initial encounter; S89.91XA Unspecified injury of right lower leg, initial encounter
CPT/HCPCS: 70450-TC; 70486-TC; 72125-TC; 73562-TC-RT-FY; 99285-25

== ENCOUNTER 2020-12-23 05:40 | Emergency (ER) | payer OTHER, MEDICARE, BC ==
[2020-12-23 05:47] VITALS: BP 155/102; PULSE 84; BMI 26.4
[2020-12-23] MEDS ORDERED: IBUPROFEN 400 MG TABLET (FP) PO ONE ×2 (05:48→05:50)
== END 2020-12-23 06:11 | disposition home or self-care (01) ==
LOC: FER 05:40
DX: G50.1 Atypical facial pain (principal)
CPT/HCPCS: 99283-25

== ENCOUNTER 2021-02-18 11:13 | Emergency (ER) | payer OTHER, MEDICARE ==
[2021-02-18 11:29] VITALS: BP 128/63; PULSE 82; TEMP 97.6; BMI 21.4
[2021-02-18] MEDS ORDERED: KETOROLAC TROMETHAMINE 15 MG/ML VIAL IVPUSH ONE (11:49)
[2021-02-18] MEDS ORDERED: KETOROLAC TROMETHAMINE 15 MG/ML VIAL ONE (11:51)
[2021-02-18] MEDS ORDERED: ACETAMINOPHEN 500 MG TABLET (FP) PO ONE (13:06)
[2021-02-18] MEDS ORDERED: ACETAMINOPHEN 325 MG TABLET (FP) ONE (13:11)
== END 2021-02-18 13:40 | disposition home or self-care (01) ==
LOC: FER 11:13
PROC: 3E0233Z Introduction of Anti-inflammatory into Muscle, Percutaneous Approach (ICD-10-PCS; principal; 2021-02-18)
DX: R68.84 Jaw pain (principal)
CPT/HCPCS: 96374; 99283-25

== ENCOUNTER 2021-02-19 06:35 | Emergency (ER) | payer OTHER, MEDICARE ==
[2021-02-19 06:50] VITALS: BP 140/85; PULSE 78; TEMP 97.9; BMI 21.4
[2021-02-19] MEDS ORDERED: KETOROLAC TROMETHAMINE 15 MG/ML VIAL IM ONE (07:14)
[2021-02-19] MEDS ORDERED: KETOROLAC TROMETHAMINE 15 MG/ML VIAL ONE (07:21)
== END 2021-02-19 07:40 | disposition home or self-care (01) ==
LOC: FER 06:35
PROC: 3E023GC Introduction of Other Therapeutic Substance into Muscle, Percutaneous Approach (ICD-10-PCS; principal; 2021-02-19)
DX: R51.9 Headache, unspecified (principal)
CPT/HCPCS: 96372; 99284-25

== ENCOUNTER 2021-03-08 05:35 | Emergency (ER) | payer OTHER, MEDICARE, BC ==
[2021-03-08 05:43] VITALS: BP 142/92; PULSE 80; TEMP 97; BMI 21.4
[2021-03-08] MEDS ORDERED: KETOROLAC TROMETHAMINE 30 MG/1 ML VIAL ONE (05:44)
[2021-03-08] MEDS ORDERED: KETOROLAC TROMETHAMINE 30 MG/1 ML VIAL IM ONE (05:48)
== END 2021-03-08 05:51 | disposition home or self-care (01) ==
LOC: FER 05:35
PROC: 3E0233Z Introduction of Anti-inflammatory into Muscle, Percutaneous Approach (ICD-10-PCS; principal; 2021-03-08)
DX: M26.602 Left temporomandibular joint disorder, unspecified (principal)
CPT/HCPCS: 99284-25

== ENCOUNTER 2021-03-18 10:30 | Emergency (ER) | payer OTHER, BC, MEDICARE ==
[2021-03-18 10:49] VITALS: BP 151/87; PULSE 84; TEMP 97.8; BMI 21.4
== END 2021-03-18 11:05 | disposition home or self-care (01) ==
LOC: FER 10:30
DX: S09.90XA Unspecified injury of head, initial encounter (principal); W22.8XXA Striking against or struck by other objects, initial encounter; Y92.002 Bathroom of unspecified non-institutional (private) residence as the place of occurrence of the external cause
CPT/HCPCS: 99281-25

== ENCOUNTER 2021-03-21 07:07 | Emergency (ER) | payer OTHER, BC, MEDICARE ==
[2021-03-21 07:14] VITALS: BP 131/90; PULSE 87; TEMP 98; BMI 21.4
[2021-03-21] MEDS ORDERED: KETOROLAC TROMETHAMINE 30 MG/1 ML VIAL ONE (07:27)
[2021-03-21] MEDS ORDERED: KETOROLAC TROMETHAMINE 30 MG/1 ML VIAL IM ONE (07:33)
[2021-03-21] MEDS ORDERED: traMADol HCL 50 MG TABLET ONE (07:51)
[2021-03-21] MEDS ORDERED: traMADol HCL 50 MG TABLET PO ONE (07:51)
== END 2021-03-21 07:49 | disposition home or self-care (01) ==
LOC: FER 07:07
PROC: 3E0233Z Introduction of Anti-inflammatory into Muscle, Percutaneous Approach (ICD-10-PCS; principal; 2021-03-21)
DX: G89.4 Chronic pain syndrome (principal)
CPT/HCPCS: 99284-25

== ENCOUNTER 2021-04-07 03:22 | Emergency (ER) | payer OTHER, BC, MEDICARE ==
[2021-04-07] MEDS ORDERED: KETOROLAC TROMETHAMINE 15 MG/ML VIAL IM ONE (03:41)
[2021-04-07] MEDS ORDERED: MAG HYDROX/AL HYDROX/SIMETH 30 ML UNIT-DOSE CUP PO ONE (03:41)
[2021-04-07] MEDS ORDERED: MAG HYDROX/AL HYDROX/SIMETH 30 ML UNIT-DOSE CUP ONE (03:48)
[2021-04-07] MEDS ORDERED: KETOROLAC TROMETHAMINE 15 MG/ML VIAL ONE (03:48)
[2021-04-07 04:00] VITALS: BP 113/68; PULSE 61; BMI 21.4
[2021-04-07] MEDS ORDERED: ACETAMINOPHEN 500 MG TABLET (FP) PO ONE (04:45)
[2021-04-07] MEDS ORDERED: ONDANSETRON 4 MG TABLET PO PRN (04:45)
[2021-04-07] MEDS ORDERED: ONDANSETRON *ODT* 4 MG TABLET ONE (04:47)
[2021-04-07] MEDS ORDERED: ACETAMINOPHEN 325 MG TABLET (FP) ONE (04:47)
== END 2021-04-07 05:08 | disposition home or self-care (01) ==
LOC: FER 03:22
PROC: 3E0233Z Introduction of Anti-inflammatory into Muscle, Percutaneous Approach (ICD-10-PCS; principal; 2021-04-07)
DX: R20.8 Other disturbances of skin sensation (principal)
CPT/HCPCS: 99284-25

== ENCOUNTER 2021-04-07 12:39 | Emergency (ER) | payer OTHER, BC, MEDICARE ==
[2021-04-07 12:47] VITALS: BP 120/84; PULSE 110; TEMP 98.8; BMI 21.1
[2021-04-07] MEDS ORDERED: SODIUM CHLORIDE 500 ML IV STA (12:57)
[2021-04-07 13:18] LABS: ALBUMIN 3.9 g/dl (3.4-5.0); BILIRUBIN,TOTAL 1.1 mg/dl (0.2-1); CALCIUM 8.7 mg/dl (8.5-10); CREATININE 0.6 mg/dl (0.55-1.3); TOT PROT 6.9 g/dl (6.4-8.2)
[2021-04-07 13:23] LABS: HEMATOCRIT 43.4 % (32.4-45.2); HEMOGLOBIN 14.7 GM/dl (10.7-15.3); LYMPH % 6.2 % (8-40); MCH 29.9 pg (25.7-33.7); MCHC 33.9 g/dl (32.0-36.0); MEAN CELL VOLUME 88.2 fl (80-96); MEAN PLT VOLUME 9.8 fl (7.5-11.1); MONO % 2.9 % (3.8-10.2); NEUT % 88.9 % (42.8-82.8); PLATELET COUNT 200 10^3/uL (134-434); RBC 4.92 M/mm3 (3.60-5.2); RDW 13.5 % (11.6-15.6); WHITE BLOOD COUNT 10.1 K/mm3 (4.0-10.8)
[2021-04-07 13:32] LABS: EPITHELIAL CELLS FEW /hpf; URINE MUCUS 1+
[2021-04-07] MEDS ORDERED: CEPHALEXIN MONOHYDRATE 500 MG CAPSULE (UD) PO ONE (14:18)
[2021-04-07] MEDS ORDERED: CEPHALEXIN MONOHYDRATE 500 MG CAPSULE (UD) ONE (14:21)
== END 2021-04-07 14:31 | disposition home or self-care (01) ==
LOC: FER 12:39
PROC: 3E0337Z Introduction of Electrolytic and Water Balance Substance into Peripheral Vein, Percutaneous Approach (ICD-10-PCS; principal; 2021-04-07)
DX: N10 Acute pyelonephritis (principal)
CPT/HCPCS: 36415; 74176-TC; 80053; 81003; 81015; 83690; 85025; 87086; 99284-25

== ENCOUNTER 2021-04-26 16:22 | Emergency (ER) | payer OTHER, MEDICARE, BC ==
[2021-04-26 17:01] VITALS: BP 127/76; PULSE 88; TEMP 98; BMI 19.5
[2021-04-26 17:26] LABS: EPITHELIAL CELLS FEW /hpf
[2021-04-26 17:31] LABS: ALBUMIN 3.6 g/dl (3.4-5.0); BILIRUBIN,TOTAL 0.7 mg/dl (0.2-1); CALCIUM 8.4 mg/dl (8.5-10); CREATININE 0.6 mg/dl (0.55-1.3); TOT PROT 6.1 g/dl (6.4-8.2)
[2021-04-26 17:42] LABS: BASO % 1.4 % (0-2.0); EOS % 0.8 % (0-4.5); HEMOGLOBIN 13.3 GM/dl (10.7-15.3); LYMPH % 23.2 % (8-40); MCH 30.2 pg (25.7-33.7); MCHC 34.2 g/dl (32.0-36.0); MEAN CELL VOLUME 88.3 fl (80-96); MEAN PLT VOLUME 9.4 fl (7.5-11.1); NEUT % 66.6 % (42.8-82.8); PLATELET COUNT 187 10^3/uL (134-434); RBC 4.41 M/mm3 (3.60-5.2); RDW 12.8 % (11.6-15.6); WHITE BLOOD COUNT 5.2 K/mm3 (4.0-10.8)
== END 2021-04-26 17:53 | disposition home or self-care (01) ==
LOC: FER 16:22
DX: R10.13 Epigastric pain (principal); K29.70 Gastritis, unspecified, without bleeding
CPT/HCPCS: 36415; 80053; 81003; 81015; 85025; 87086; 99283-25

== ENCOUNTER 2021-06-21 06:25 | Emergency (ER) | payer OTHER, MEDICARE, BC ==
[2021-06-21] MEDS ORDERED: KETOROLAC TROMETHAMINE 30 MG/1 ML VIAL IM ONE (06:30)
[2021-06-21] MEDS ORDERED: KETOROLAC TROMETHAMINE 30 MG/1 ML VIAL ONE (06:31)
[2021-06-21 06:38] VITALS: BP 143/85; PULSE 86; TEMP 99.4; BMI 20.5
== END 2021-06-21 06:51 | disposition home or self-care (01) ==
LOC: FER 06:25
PROC: 3E0233Z Introduction of Anti-inflammatory into Muscle, Percutaneous Approach (ICD-10-PCS; principal; 2021-06-21)
DX: G50.1 Atypical facial pain (principal)
CPT/HCPCS: 99284-25

== ENCOUNTER 2021-06-22 08:27 | Emergency (ER) | payer OTHER, MEDICARE, BC ==
[2021-06-22 08:31] VITALS: BP 129/83; PULSE 94; TEMP 97.8; BMI 22.4
[2021-06-22] MEDS ORDERED: KETOROLAC TROMETHAMINE 30 MG/1 ML VIAL IM ONE (08:38)
[2021-06-22] MEDS ORDERED: MAG HYDROX/AL HYDROX/SIMETH 30 ML UNIT-DOSE CUP PO ONE (08:49)
[2021-06-22] MEDS ORDERED: ACETAMINOPHEN 325 MG TABLET (FP) PO ONE (08:49)
[2021-06-22] MEDS ORDERED: KETOROLAC TROMETHAMINE 30 MG/1 ML VIAL ONE (08:53)
[2021-06-22] MEDS ORDERED: MAG HYDROX/AL HYDROX/SIMETH 30 ML UNIT-DOSE CUP ONE (08:54)
[2021-06-22] MEDS ORDERED: ACETAMINOPHEN 325 MG TABLET (FP) ONE (08:54)
[2021-06-22] MEDS ORDERED: GABAPENTIN 300 MG CAPSULE PO ONE (10:01)
[2021-06-22] MEDS ORDERED: GABAPENTIN 300 MG CAPSULE ONE (10:03)
== END 2021-06-22 10:12 | disposition home or self-care (01) ==
LOC: FER 08:27
PROC: 3E0233Z Introduction of Anti-inflammatory into Muscle, Percutaneous Approach (ICD-10-PCS; principal; 2021-06-22)
DX: G50.1 Atypical facial pain (principal)
CPT/HCPCS: 99283-25

== ENCOUNTER 2021-07-24 06:37 | Emergency (ER) | payer OTHER, MEDICARE, BC ==
[2021-07-24 06:54] VITALS: BMI 20.9
[2021-07-24] MEDS ORDERED: ACETAMINOPHEN 1000 MG/100 ML BAG IVPB ONE (07:21)
[2021-07-24] MEDS ORDERED: LACTATED RINGERS SOLUTION 1000 ML INFUS.BAG IV ONE (07:21)
[2021-07-24] MEDS ORDERED: ONDANSETRON 4 MG/2 ML VIAL IVPUSH ONE (07:21)
[2021-07-24] MEDS ORDERED: FAMOTIDINE 20 MG/50 ML IVPB 20 MG/50 ML MG IVPB ONE ×2 (07:21→07:40)
[2021-07-24] MEDS ORDERED: METOCLOPRAMIDE HCL INJECTION 10 MG/2 ML VIAL ONE (07:27)
[2021-07-24] MEDS ORDERED: ONDANSETRON 4 MG/2 ML VIAL ONE (07:40)
[2021-07-24] MEDS ORDERED: ACETAMINOPHEN INJECTION 100 ML IVPB ONE (07:40)
[2021-07-24 08:09] LABS: BILIRUBIN,TOTAL 0.9 mg/dl (0.2-1); CALCIUM 9.1 mg/dl (8.5-10); CREATININE 0.5 mg/dl (0.55-1.3); TOT PROT 6.7 g/dl (6.4-8.2)
[2021-07-24] MEDS ORDERED: POTASSIUM CHLORIDE TABS 20 MEQ TABLET.ER (FP) PO ONE ×2 (08:15→08:47)
[2021-07-24] MEDS ORDERED: LORazepam 2 MG/ML SDV VIAL ONE (08:17)
[2021-07-24 08:36] LABS: EPITHELIAL CELLS MODERATE /hpf
[2021-07-24 08:37] LABS: URINE MUCUS 1+
[2021-07-24 09:08] LABS: BASO % 0.8 % (0-2.0); EOS % 0.6 % (0-4.5); LYMPH % 22.9 % (8-40); MCHC 33.4 g/dl (32.0-36.0); MEAN CELL VOLUME 86.9 fl (80-96); MEAN PLT VOLUME 9.8 fl (7.5-11.1); MONO % 6.6 % (3.8-10.2); NEUT % 69.1 % (42.8-82.8); PLATELET COUNT 214 10^3/uL (134-434); RBC 4.83 M/mm3 (3.60-5.2); RDW 14.3 % (11.6-15.6); WHITE BLOOD COUNT 4.6 K/mm3 (4.0-10.0)
[2021-07-24 10:00] VITALS: BP 123/76; PULSE 92; TEMP 97.6
== END 2021-07-24 10:00 | disposition home or self-care (01) ==
LOC: FER 06:37
PROC: 3E0333Z Introduction of Anti-inflammatory into Peripheral Vein, Percutaneous Approach (ICD-10-PCS; principal; 2021-07-24)
PROC: 3E033GC Introduction of Other Therapeutic Substance into Peripheral Vein, Percutaneous Approach (ICD-10-PCS; 2021-07-24)
DX: N39.0 Urinary tract infection, site not specified (principal)
CPT/HCPCS: 36415; 80053; 81003; 81015; 82550; 84484; 85025; 87086; 87186; 93005; 99284-25; C9803; J0131; U0003; U0005

== ENCOUNTER 2021-10-11 06:47 | Emergency (ER) | payer OTHER, MEDICARE, BC ==
[2021-10-11 06:54] VITALS: BP 141/92; PULSE 81; BMI 21.1
[2021-10-11] MEDS ORDERED: ONDANSETRON 4 MG TABLET PO ONE (07:19)
[2021-10-11] MEDS ORDERED: KETOROLAC TROMETHAMINE 30 MG/1 ML VIAL IM ONE (07:19)
[2021-10-11] MEDS ORDERED: ONDANSETRON *ODT* 4 MG TABLET ONE (07:25)
[2021-10-11] MEDS ORDERED: KETOROLAC TROMETHAMINE 30 MG/1 ML VIAL ONE (07:26)
== END 2021-10-11 07:35 | disposition home or self-care (01) ==
LOC: FER 06:47
PROC: 3E023GC Introduction of Other Therapeutic Substance into Muscle, Percutaneous Approach (ICD-10-PCS; principal; 2021-10-11)
DX: R68.84 Jaw pain (principal)
CPT/HCPCS: 99284-25

== ENCOUNTER 2021-11-21 04:44 | Emergency (ER) | payer OTHER, BC, MEDICARE ==
[2021-11-21 04:53] VITALS: BP 142/77; PULSE 73; BMI 21.6
[2021-11-21] MEDS ORDERED: KETOROLAC TROMETHAMINE 60 MG/2 ML VIAL IM ONE (04:53)
[2021-11-21] MEDS ORDERED: KETOROLAC TROMETHAMINE 30 MG/1 ML VIAL ONE (04:54)
[2021-11-21] MEDS ORDERED: traMADol HCL 50 MG TABLET PO ONE (05:19)
[2021-11-21] MEDS ORDERED: traMADol HCL 50 MG TABLET ONE (05:20)
== END 2021-11-21 05:30 | disposition home or self-care (01) ==
LOC: FER 04:44
PROC: 3E023GC Introduction of Other Therapeutic Substance into Muscle, Percutaneous Approach (ICD-10-PCS; principal; 2021-11-21)
DX: R51.9 Headache, unspecified (principal)
CPT/HCPCS: 96372; 99284-25

== ENCOUNTER 2021-11-30 13:34 | Emergency (ER) | payer OTHER, BC, MEDICARE ==
[2021-11-30 13:49] VITALS: BP 126/86; PULSE 87; BMI 21.6
[2021-11-30] MEDS ORDERED: traMADol HCL 50 MG TABLET PO ONE (13:57)
[2021-11-30] MEDS ORDERED: KETOROLAC TROMETHAMINE 30 MG/1 ML VIAL IM ONE (13:57)
[2021-11-30] MEDS ORDERED: KETOROLAC TROMETHAMINE 30 MG/1 ML VIAL ONE (14:03)
[2021-11-30] MEDS ORDERED: traMADol HCL 50 MG TABLET ONE (14:03)
== END 2021-11-30 14:30 | disposition home or self-care (01) ==
LOC: FER 13:34
PROC: 3E0233Z Introduction of Anti-inflammatory into Muscle, Percutaneous Approach (ICD-10-PCS; principal; 2021-11-30)
DX: G50.1 Atypical facial pain (principal)
CPT/HCPCS: 96372; 99284-25

== ENCOUNTER 2022-01-04 15:00 | Emergency (ER) | payer OTHER, BC, MEDICARE ==
[2022-01-04] MEDS ORDERED: PANTOPRAZOLE 40 MG TABLET PO ONE ×2 (15:24→15:41)
[2022-01-04 15:34] VITALS: BP 118/73; PULSE 83; TEMP 98.2; BMI 20.2
[2022-01-04 16:48] LABS: HEMATOCRIT 37.7 % (32.4-45.2); HEMOGLOBIN 13.6 G/dL (10.7-15.3); MCH 30.8 pg (25.7-33.7); MCHC 36.2 g/dl (32.0-36.0); MEAN CELL VOLUME 85.3 fl (80-96); MEAN PLT VOLUME 9.6 fl (7.5-11.1); PLATELET COUNT 183.1 10^3/uL (134-434); RBC 4.42 10^6/uL (3.60-5.2); RDW 14.9 % (11.6-15.6); WHITE BLOOD COUNT 5.9 10^3/uL (4.0-10.8)
[2022-01-04 16:56] LABS: ALBUMIN 3.5 g/dl (3.4-5.0); BILIRUBIN,TOTAL 0.5 mg/dl (0.2-1); CALCIUM 8.7 mg/dl (8.5-10); CREATININE 0.6 mg/dl (0.55-1.3); TOT PROT 6.1 g/dl (6.4-8.2)
[2022-01-04 17:18] LABS: PLATELET ESTIMATE ADEQUATE
[2022-01-04 20:58] LABS: EPITHELIAL CELLS FEW /hpf
== END 2022-01-04 17:45 | disposition home or self-care (01) ==
LOC: FER 15:00
DX: R10.84 Generalized abdominal pain (principal)
CPT/HCPCS: 36415; 80053; 81003; 81015; 85025; 87086; 87186; 99283-25

== ENCOUNTER 2022-04-25 08:49 | Emergency (ER) | payer OTHER, BC, MEDICARE ==
[2022-04-25 08:57] VITALS: BP 135/92; PULSE 74; RESP 20; TEMP 98.2; BMI 22.9
[2022-04-25] MEDS ORDERED: KETOROLAC TROMETHAMINE 30 MG/1 ML VIAL IM ONE (09:02)
[2022-04-25] MEDS ORDERED: KETOROLAC TROMETHAMINE 60 MG/2 ML VIAL ONE (09:03)
== END 2022-04-25 09:18 | disposition home or self-care (01) ==
LOC: FER 08:49
PROC: 3E0233Z Introduction of Anti-inflammatory into Muscle, Percutaneous Approach (ICD-10-PCS; principal; 2022-04-25)
DX: R68.84 Jaw pain (principal)
CPT/HCPCS: 99284-25

== ENCOUNTER 2022-05-06 06:27 | Emergency (ER) | payer OTHER, BC, MEDICARE ==
[2022-05-06] MEDS ORDERED: KETOROLAC TROMETHAMINE 30 MG/1 ML VIAL IM ONE (06:37)
[2022-05-06 06:40] VITALS: BP 132/86; PULSE 75; RESP 16; TEMP 97.5; BMI 22.2
[2022-05-06] MEDS ORDERED: KETOROLAC TROMETHAMINE 30 MG/1 ML VIAL ONE (06:41)
== END 2022-05-06 07:03 | disposition home or self-care (01) ==
LOC: FER 06:27
PROC: 3E023GC Introduction of Other Therapeutic Substance into Muscle, Percutaneous Approach (ICD-10-PCS; principal; 2022-05-06)
DX: R51.9 Headache, unspecified (principal)
CPT/HCPCS: 96372; 99284-25

== ENCOUNTER 2022-06-06 06:32 | Emergency (ER) | payer OTHER, BC, MEDICARE ==
[2022-06-06] MEDS ORDERED: KETOROLAC TROMETHAMINE 30 MG/1 ML VIAL IM ONE (06:36)
[2022-06-06 06:41] VITALS: BP 130/86; PULSE 83; RESP 16; TEMP 97.6; BMI 20.7
[2022-06-06] MEDS ORDERED: KETOROLAC TROMETHAMINE 30 MG/1 ML VIAL ONE (06:41)
== END 2022-06-06 06:48 | disposition home or self-care (01) ==
LOC: FER 06:32
PROC: 3E0233Z Introduction of Anti-inflammatory into Muscle, Percutaneous Approach (ICD-10-PCS; principal; 2022-06-06)
DX: G50.1 Atypical facial pain (principal)
CPT/HCPCS: 99284-25

== ENCOUNTER 2022-06-19 02:14 | Emergency (ER) | payer OTHER, BC, MEDICARE ==
[2022-06-19 02:27] VITALS: BP 125/90; PULSE 88; RESP 17; TEMP 98; BMI 20.7
[2022-06-19] MEDS ORDERED: KETOROLAC TROMETHAMINE 30 MG/1 ML VIAL IM ONE (02:45)
[2022-06-19] MEDS ORDERED: KETOROLAC TROMETHAMINE 30 MG/1 ML VIAL ONE (02:46)
== END 2022-06-19 02:53 | disposition home or self-care (01) ==
LOC: FER 02:14
PROC: 3E023GC Introduction of Other Therapeutic Substance into Muscle, Percutaneous Approach (ICD-10-PCS; principal; 2022-06-19)
DX: R51.9 Headache, unspecified (principal)
CPT/HCPCS: 99284-25

== ENCOUNTER 2022-07-10 03:41 | Emergency (ER) | payer OTHER, BC, MEDICARE ==
[2022-07-10 03:57] VITALS: BP 143/94; PULSE 81; RESP 18; TEMP 98; BMI 20.2
== END 2022-07-10 04:05 | disposition home or self-care (01) ==
LOC: FER 03:41
DX: G50.1 Atypical facial pain (principal)
CPT/HCPCS: 99281-25

== ENCOUNTER 2022-07-20 05:22 | Emergency (ER) | payer OTHER, BC, MEDICARE ==
[2022-07-20 05:37] VITALS: BP 130/84; PULSE 73; RESP 16; TEMP 97.8
[2022-07-20] MEDS ORDERED: KETOROLAC TROMETHAMINE 30 MG/1 ML VIAL IM ONE (05:40)
[2022-07-20 05:41] VITALS: BMI 20.2
[2022-07-20] MEDS ORDERED: KETOROLAC TROMETHAMINE 30 MG/1 ML VIAL ONE (05:42)
[2022-07-20] MEDS ORDERED: MAG HYDROX/AL HYDROX/SIMETH 30 ML UNIT-DOSE CUP ONE (05:45)
[2022-07-20] MEDS ORDERED: MAG HYDROX/AL HYDROX/SIMETH 30 ML UNIT-DOSE CUP PO ONE (05:45)
== END 2022-07-20 05:53 | disposition home or self-care (01) ==
LOC: FER 05:22
PROC: 3E023GC Introduction of Other Therapeutic Substance into Muscle, Percutaneous Approach (ICD-10-PCS; principal; 2022-07-20)
DX: G50.0 Trigeminal neuralgia (principal)
CPT/HCPCS: 99284-25

== ENCOUNTER 2022-07-25 02:34 | Emergency (ER) | payer OTHER, BC, MEDICARE ==
[2022-07-25] MEDS ORDERED: KETOROLAC TROMETHAMINE 30 MG/1 ML VIAL IM ONE (02:38)
[2022-07-25 02:41] VITALS: BP 136/90; PULSE 45; RESP 16; TEMP 98.1; BMI 20.5
[2022-07-25] MEDS ORDERED: KETOROLAC TROMETHAMINE 30 MG/1 ML VIAL ONE (02:42)
[2022-07-25] MEDS ORDERED: ACETAMINOPHEN 1000 MG/100 ML BAG IVPB ONE (03:46)
== END 2022-07-25 03:04 | disposition home or self-care (01) ==
LOC: FER 02:34
PROC: 3E023GC Introduction of Other Therapeutic Substance into Muscle, Percutaneous Approach (ICD-10-PCS; principal; 2022-07-25)
DX: R51.9 Headache, unspecified (principal)
CPT/HCPCS: 99284-25

== ENCOUNTER 2022-08-21 06:21 | Emergency (ER) | payer OTHER, BC, MEDICARE ==
[2022-08-21] MEDS ORDERED: KETOROLAC TROMETHAMINE 30 MG/1 ML VIAL IM ONE (06:27)
[2022-08-21] MEDS ORDERED: KETOROLAC TROMETHAMINE 30 MG/1 ML VIAL ONE (06:30)
[2022-08-21 06:32] VITALS: BP 128/88; PULSE 88; RESP 16; TEMP 98; BMI 20.1
== END 2022-08-21 06:40 | disposition home or self-care (01) ==
LOC: FER 06:21
PROC: 3E0233Z Introduction of Anti-inflammatory into Muscle, Percutaneous Approach (ICD-10-PCS; principal; 2022-08-21)
DX: M26.69 Other specified disorders of temporomandibular joint (principal)
CPT/HCPCS: 99284-25

== ENCOUNTER 2022-09-02 05:26 | Emergency (ER) | payer OTHER, BC, MEDICARE ==
[2022-09-02 05:31] VITALS: BP 138/88; PULSE 67; RESP 18; BMI 20.1
[2022-09-02] MEDS ORDERED: KETOROLAC TROMETHAMINE 30 MG/1 ML VIAL ONE (05:37)
[2022-09-02] MEDS ORDERED: KETOROLAC TROMETHAMINE 30 MG/1 ML VIAL IM ONE (05:40)
== END 2022-09-02 05:48 | disposition home or self-care (01) ==
LOC: FER 05:26
PROC: 3E0234Z Introduction of Serum, Toxoid and Vaccine into Muscle, Percutaneous Approach (ICD-10-PCS; principal; 2022-09-02)
DX: M26.609 Unspecified temporomandibular joint disorder, unspecified side (principal); G89.4 Chronic pain syndrome
CPT/HCPCS: 99284-25

== ENCOUNTER 2022-09-03 06:05 | Emergency (ER) | payer OTHER, BC, MEDICARE ==
[2022-09-03 06:15] VITALS: BP 139/85; PULSE 68; RESP 16; BMI 20.1
[2022-09-03] MEDS ORDERED: KETOROLAC TROMETHAMINE 30 MG/1 ML VIAL ONE (06:16)
[2022-09-03] MEDS ORDERED: MAG HYDROX/AL HYDROX/SIMETH 30 ML UNIT-DOSE CUP ONE (06:18)
[2022-09-03] MEDS ORDERED: KETOROLAC TROMETHAMINE 30 MG/1 ML VIAL IM ONE (06:22)
[2022-09-03] MEDS ORDERED: MAG HYDROX/AL HYDROX/SIMETH 30 ML UNIT-DOSE CUP PO ONE (06:23)
== END 2022-09-03 06:31 | disposition home or self-care (01) ==
LOC: FER 06:05
PROC: 3E023GC Introduction of Other Therapeutic Substance into Muscle, Percutaneous Approach (ICD-10-PCS; principal; 2022-09-03)
DX: M26.609 Unspecified temporomandibular joint disorder, unspecified side (principal)
CPT/HCPCS: 99284-25

== ENCOUNTER 2022-10-19 17:50 | Emergency (ER) | payer OTHER, BC, MEDICARE ==
[2022-10-19 18:15] VITALS: BP 135/90; PULSE 82; RESP 18; TEMP 97.2; BMI 20.1
[2022-10-19] MEDS ORDERED: CEPHALEXIN MONOHYDRATE 500 MG CAPSULE (UD) PO ONE (19:44)
[2022-10-19] MEDS ORDERED: CEPHALEXIN MONOHYDRATE 500 MG CAPSULE (UD) ONE (19:45)
== END 2022-10-19 19:53 | disposition home or self-care (01) ==
LOC: FER 17:50
DX: N39.0 Urinary tract infection, site not specified (principal)
CPT/HCPCS: 81003; 81015; 87086; 87186; 99283-25

== ENCOUNTER 2022-10-29 12:16 | Emergency (ER) | payer OTHER, BC, MEDICARE ==
[2022-10-29 12:38] VITALS: BP 135/92; PULSE 105; RESP 18; TEMP 98.1; BMI 26.4
[2022-10-29] MEDS ORDERED: diazePAM 2 MG TABLET PO ONE (13:09)
[2022-10-29] MEDS ORDERED: diazePAM 2 MG TABLET ONE (13:31)
== END 2022-10-29 13:45 | disposition home or self-care (01) ==
LOC: FER 12:16
DX: F41.9 Anxiety disorder, unspecified (principal)
CPT/HCPCS: 99283-25

== ENCOUNTER 2022-11-02 10:10 | Emergency (ER) | payer OTHER, BC ==
[2022-11-02 10:18] VITALS: BP 116/78; PULSE 60; RESP 18; TEMP 98.1; BMI 26.2
[2022-11-02] MEDS ORDERED: MECLIZINE HCL 25 MG TABLET (FP) PO ONE (10:26)
[2022-11-02] MEDS ORDERED: MECLIZINE HCL 25 MG TABLET (FP) ONE (10:28)
== END 2022-11-02 11:07 | disposition home or self-care (01) ==
LOC: FER 10:10
DX: R42 Dizziness and giddiness (principal)
CPT/HCPCS: 99283-25

== ENCOUNTER 2022-11-04 06:58 | Emergency (ER) | payer OTHER, BC ==
[2022-11-04 07:09] VITALS: BP 139/88; PULSE 89; RESP 18; BMI 20.1
[2022-11-04] MEDS ORDERED: KETOROLAC TROMETHAMINE 30 MG/1 ML VIAL IM ONE (07:48)
[2022-11-04] MEDS ORDERED: KETOROLAC TROMETHAMINE 15 MG/ML VIAL ONE (07:51)
[2022-11-04 07:57] VITALS: TEMP 98.2
== END 2022-11-04 09:01 | disposition home or self-care (01) ==
LOC: FER 06:58
PROC: 3E0233Z Introduction of Anti-inflammatory into Muscle, Percutaneous Approach (ICD-10-PCS; principal; 2022-11-04)
DX: R42 Dizziness and giddiness (principal); R51.9 Headache, unspecified
CPT/HCPCS: 99284-25

== ENCOUNTER 2022-11-17 20:57 | Emergency (ER) | payer OTHER, BC ==
[2022-11-17 21:03] VITALS: BP 164/85; PULSE 76; RESP 18; TEMP 98.2; BMI 20.1
[2022-11-17] MEDS ORDERED: KETOROLAC TROMETHAMINE 30 MG/1 ML VIAL ONE (21:05)
[2022-11-17] MEDS ORDERED: KETOROLAC TROMETHAMINE 30 MG/1 ML VIAL IM ONE (21:07)
== END 2022-11-17 21:16 | disposition home or self-care (01) ==
LOC: FER 20:57
PROC: 3E0233Z Introduction of Anti-inflammatory into Muscle, Percutaneous Approach (ICD-10-PCS; principal; 2022-11-17)
DX: M26.603 Bilateral temporomandibular joint disorder, unspecified (principal); G43.909 Migraine, unspecified, not intractable, without status migrainosus; G89.4 Chronic pain syndrome
CPT/HCPCS: 99284-25

== ENCOUNTER 2023-01-23 02:06 | Emergency (ER) | payer OTHER, BC ==
[2023-01-23 02:11] VITALS: BP 147/94; PULSE 70; RESP 16; TEMP 98; BMI 20.7
[2023-01-23] MEDS ORDERED: KETOROLAC TROMETHAMINE 60 MG/2 ML VIAL IM ONE (02:23)
[2023-01-23] MEDS ORDERED: KETOROLAC TROMETHAMINE 30 MG/1 ML VIAL ONE (02:24)
== END 2023-01-23 02:40 | disposition home or self-care (01) ==
LOC: FER 02:06
PROC: 3E0233Z Introduction of Anti-inflammatory into Muscle, Percutaneous Approach (ICD-10-PCS; principal; 2023-01-23)
DX: R51.9 Headache, unspecified (principal); M26.602 Left temporomandibular joint disorder, unspecified; G89.29 Other chronic pain
CPT/HCPCS: 99284-25

== ENCOUNTER 2023-03-31 07:03 | Emergency (ER) | payer OTHER, BC ==
[2023-03-31 07:08] VITALS: BP 151/92; PULSE 74; RESP 19; TEMP 97.8; BMI 20.1
[2023-03-31] MEDS ORDERED: KETOROLAC TROMETHAMINE 30 MG/1 ML VIAL IM ONE (07:23)
[2023-03-31] MEDS ORDERED: KETOROLAC TROMETHAMINE 30 MG/1 ML VIAL ONE (07:24)
== END 2023-03-31 07:43 | disposition home or self-care (01) ==
LOC: FER 07:03
PROC: 3E0233Z Introduction of Anti-inflammatory into Muscle, Percutaneous Approach (ICD-10-PCS; principal; 2023-03-31)
DX: R68.84 Jaw pain (principal); G50.0 Trigeminal neuralgia; G89.29 Other chronic pain
CPT/HCPCS: 99284-25

== ENCOUNTER 2023-05-31 06:20 | Emergency (ER) | payer OTHER, BC ==
[2023-05-31 06:27] VITALS: BP 140/93; PULSE 97; RESP 16; TEMP 97.5
[2023-05-31] MEDS ORDERED: FAMOTIDINE 20 MG TABLET PO ONE (07:25)
[2023-05-31] MEDS ORDERED: MAG HYDROX/AL HYDROX/SIMETH 30 ML UNIT-DOSE CUP PO ONE (07:26)
[2023-05-31] MEDS ORDERED: LIDOCAINE VISCOUS 2% ORAL/TOP 15 ML UNIT-DOSE CUP MM ONE (07:44)
[2023-05-31] MEDS ORDERED: FAMOTIDINE 20 MG TABLET ONE (08:05)
[2023-05-31] MEDS ORDERED: MAG HYDROX/AL HYDROX/SIMETH 30 ML UNIT-DOSE CUP ONE (08:05)
[2023-05-31 08:43] LABS: HEMATOCRIT 41.8 % (32.4-45.2); HEMOGLOBIN 14.2 G/dL (10.7-15.3); MCHC 33.9 g/dl (32.0-36.0); MEAN CELL VOLUME 88.3 fl (80-96); PLATELET COUNT 182.9 10^3/uL (134-434); RBC 4.73 10^6/uL (3.60-5.2); RDW 14.1 % (11.6-15.6); WHITE BLOOD COUNT 4.9 10^3/uL (4.0-10.8)
[2023-05-31 08:48] LABS: PLATELET ESTIMATE ADEQUATE
[2023-05-31 08:50] LABS: BILIRUBIN,TOTAL 0.6 mg/dl (0.2-1); CALCIUM 9.6 mg/dl (8.5-10.1); CREATININE 0.5 mg/dl (0.6-1.3); POTASSIUM 3.7 mmol/L (3.5-5.1); TOT PROT 6.3 g/dl (6.4-8.2)
== END 2023-05-31 09:30 | disposition home or self-care (01) ==
LOC: FER 06:20
DX: R14.1 Gas pain (principal); R07.2 Precordial pain; R11.0 Nausea
CPT/HCPCS: 36415; 71046-TC-FY; 80053; 84484; 85027; 93005; 99285-25

== ENCOUNTER 2023-06-23 10:07 | Emergency (ER) | payer OTHER, BC ==
[2023-06-23 10:24] VITALS: BP 130/88; PULSE 79; RESP 16; TEMP 98.7; BMI 19.7
[2023-06-23] MEDS ORDERED: KETOROLAC TROMETHAMINE 30 MG/1 ML VIAL ONE (10:32)
[2023-06-23] MEDS ORDERED: KETOROLAC TROMETHAMINE 30 MG/1 ML VIAL IM ONE (10:33)
== END 2023-06-23 10:45 | disposition home or self-care (01) ==
LOC: FER 10:07
PROC: 3E0233Z Introduction of Anti-inflammatory into Muscle, Percutaneous Approach (ICD-10-PCS; principal; 2023-06-23)
DX: R68.84 Jaw pain (principal); R51.9 Headache, unspecified
CPT/HCPCS: 99284-25

== ENCOUNTER 2023-08-09 08:31 | Emergency (ER) | payer OTHER, BC ==
[2023-08-09 08:40] VITALS: BP 151/98; PULSE 94; RESP 16; TEMP 98; BMI 14.6
[2023-08-09] MEDS ORDERED: KETOROLAC TROMETHAMINE 30 MG/1 ML VIAL IM ONE (08:58)
[2023-08-09] MEDS ORDERED: KETOROLAC TROMETHAMINE 30 MG/1 ML VIAL ONE (08:59)
== END 2023-08-09 10:02 | disposition home or self-care (01) ==
LOC: FER 08:31
PROC: 3E0333Z Introduction of Anti-inflammatory into Peripheral Vein, Percutaneous Approach (ICD-10-PCS; principal; 2023-08-09)
DX: R68.84 Jaw pain (principal); G89.29 Other chronic pain
CPT/HCPCS: 99284-25

== ENCOUNTER 2024-01-08 06:08 | Emergency (ER) | payer OTHER, BC ==
[2024-01-08 06:26] VITALS: BP 124/83; PULSE 85; RESP 16; TEMP 97.5; BMI 19.7
[2024-01-08] MEDS: SODIUM CHLORIDE 1,000 ML IV ONE (06:51)
[2024-01-08] MEDS: SODIUM CHLORIDE 0.9% 500 ML INFUS.BAG IV ONE (06:57)
[2024-01-08 08:10] LABS: HEMATOCRIT 44.2 % (32.4-45.2); HEMOGLOBIN 14.5 G/dL (10.7-15.3); MCH 29.2 pg (25.7-33.7); MCHC 32.8 g/dl (32.0-36.0); MEAN CELL VOLUME 89.1 fl (80-96); MEAN PLT VOLUME 10.3 fl (7.5-11.1); RBC 4.96 10^6/uL (3.60-5.2); RDW 14.5 % (11.6-15.6); WHITE BLOOD COUNT 5.4 10^3/uL (4.0-10.8)
[2024-01-08] MEDS ORDERED: ACETAMINOPHEN INJECTION 100 ML IVPB ONE (08:20)
[2024-01-08] MEDS: ACETAMINOPHEN 1000 MG/100 ML BAG IVPB ONE (08:26)
[2024-01-08 08:33] LABS: EPITHELIAL CELLS 0-5 /hpf
[2024-01-08 08:49] LABS: ALBUMIN 3.9 g/dl (3.4-5.0); BILIRUBIN,TOTAL 0.6 mg/dl (0.2-1); CALCIUM 9.4 mg/dl (8.5-10.1); CREATININE 0.6 mg/dl (0.6-1.3); MAGNESIUM 2.2 mg/dL (1.8-2.4); PHOSPHOROUS 3.8 (2.5-4.9); POTASSIUM 3.9 mmol/L (3.5-5.1); TOT PROT 6.1 g/dl (6.4-8.2)
== END 2024-01-08 09:51 | disposition home or self-care (01) ==
LOC: FER 06:08
PROC: 3E033NZ Introduction of Analgesics, Hypnotics, Sedatives into Peripheral Vein, Percutaneous Approach (ICD-10-PCS; principal; 2024-01-08)
DX: N39.0 Urinary tract infection, site not specified (principal); R10.32 Left lower quadrant pain
CPT/HCPCS: 36415; 74176-TC; 80053; 81003; 81015; 83690; 83735; 84100; 85027; 87086; 99284-25; J0131

== ENCOUNTER 2024-02-29 15:48 | Emergency (ER) | payer OTHER, BC ==
[2024-02-29 16:12] VITALS: BP 133/94; PULSE 93; RESP 18; TEMP 98.1; BMI 17.3
[2024-02-29] MEDS: POLYETHYLENE GLYCOL (HEALTHYLAX) 3350 17 GM PACKET PO ONE (16:57)
== END 2024-02-29 17:25 | disposition home or self-care (01) ==
LOC: FER 15:48
DX: N30.01 Acute cystitis with hematuria (principal); R35.0 Frequency of micturition; R10.30 Lower abdominal pain, unspecified
CPT/HCPCS: 81003; 81015; 87086; 87186; 99283-25

== ENCOUNTER 2024-04-17 06:18 | Emergency (ER) | payer OTHER, BC ==
[2024-04-17 06:36] VITALS: BP 145/91; PULSE 82; TEMP 97.3; BMI 16.6
[2024-04-17 06:40] VITALS: RESP 18
== END 2024-04-17 06:42 | disposition home or self-care (01) ==
LOC: FER 06:18
DX: M54.2 Cervicalgia (principal); G24.3 Spasmodic torticollis
CPT/HCPCS: 99283-25

== ENCOUNTER 2025-05-13 10:27 | Emergency (ER) | payer OTHER, BC ==
[2025-05-13 10:40] VITALS: BP 127/73; PULSE 70; RESP 16; TEMP 97.4; BMI 18.1
[2025-05-13] MEDS ORDERED: IBUPROFEN 100 MG/5 ML UNIT DOSE CUPS ONE (11:18)
[2025-05-13] MEDS: IBUPROFEN 200 MG TABLET PO ONE (11:21)
[2025-05-13 11:54] LABS: EPITHELIAL CELLS 0-5 /hpf
[2025-05-13 11:55] LABS: AMORP PHOS FEW /hpf (NONE SEEN)
== END 2025-05-13 12:04 | disposition home or self-care (01) ==
LOC: FER 10:27
DX: S16.1XXA Strain of muscle, fascia and tendon at neck level, initial encounter (principal); V43.62XA Car passenger injured in collision with other type car in traffic accident, initial encounter
CPT/HCPCS: 81003; 81015; 87086; 99283-25